=== PATIENT | male | born 1965 | race Caucasian/White ===

== ENCOUNTER 2016-10-23 22:44 | Emergency (ER) | payer MEDICARE ==
[2016-10-23] MEDS ORDERED: NALOXONE 0.4 MG/ML 1 ML VIAL IV STA (22:55)
[2016-10-23] MEDS ORDERED: SODIUM CHLORIDE 0.9% 1,000 ML IV ONE (22:55)
[2016-10-23 22:56] VITALS: RESP 18
--- NOTE | 2016-10-23 22:57 | ED ---
Altered Mental Status HPI - General Chief Complaint: Altered Mental Status Stated Complaint: ALTERED MENTAL STATUS Time Seen by Provider: 10/23/16 22:45 Source: patient, EMS, RN notes reviewed Mode of arrival: EMS - History of Present Illness Initial Comments: 51-year-old male presents to emergency room chief complaint of altered mental status. The daughter the patient has been acting off for last week or so. Patient denies any complaints. He states he hasn't been sleeping. Patient states he runs 2 cycles where he does not sleep. Patient does mention narcotic use. Patient has no complaints at this time. No chest pain no shortness of breath no vomiting. No fever chills no cough. - Related Data Home Medications Medication Instructions Recorded Confirmed ALPRAZolam [Xanax] 1 mg PO TID PRN 12/29/13 10/23/16 Hydrocodone/Acetaminophen [[place] 1 tab PO TID 12/29/13 10/23/16 10-325] Lisinopril [Zestril] 10 mg PO DAILY 12/29/13 10/23/16 Metoprolol Tartrate [Lopressor] 25 mg PO BID 12/29/13 10/23/16 Donepezil [Aricept] 10 mg PO HS 12/10/15 10/23/16 Famotidine 20 mg PO BID 12/10/15 10/23/16 Methocarbamol [Robaxin] 500 mg PO TID 12/10/15 10/23/16 traZODone HCL 50 mg PO HS PRN 12/10/15 10/23/16 Donepezil [Aricept] 5 mg PO HS 10/23/16 10/23/16 Verapamil HCl [[place]] 120 mg PO DAILY 10/23/16 10/23/16 lamoTRIgine [LaMICtal] 25 mg PO BID 10/23/16 10/23/16 lamoTRIgine [LaMICtal] 200 mg PO BID 10/23/16 10/23/16 Allergies Allergy/AdvReac Type Severity Reaction Status Date / Time venom-honey bee Allergy Anaphylaxis Verified 10/23/16 23:01 [bee venom (honey bee)] Review of Systems ROS Statement: Those systems with pertinent positive or pertinent negative responses have been documented in the HPI. ROS Other: All systems not noted in ROS Statement are negative. Past Medical History Past Medical History: Asthma, Chest Pain / Angina, GERD/Reflux, Hypertension, Memory Impairment Additional Past Medical History / Comment(s): GOUT, CHRONIC BACK PAIN, MIGRAINES , left hearing loss, hx. memory loss-having work up done for dementia per daughter, intermittent coffee ground emesis, maybe 3-4 times per month, ran out of GERD meds. History of Any Multi-Drug Resistant Organisms: None Reported Additional Past Surgical History / Comment(s): COLONOSCOPY Past Anesthesia/Blood Transfusion Reactions: No Reported Reaction Past Psychological History: Anxiety Smoking Status: Former smoker Past Alcohol Use History: Rare Past Drug Use History: None Reported General Exam General appearance: alert, other (drowsy) Head exam: Present: atraumatic, normocephalic, normal inspection Eye exam: Present: EOMI, other (She does appear to have pinpoint pupils). Absent: scleral icterus, conjunctival injection ENT exam: Present: normal exam, mucous membranes moist Neck exam: Present: normal inspection. Absent: tenderness, meningismus, lymphadenopathy Respiratory exam: Present: normal lung sounds bilaterally. Absent: respiratory distress, wheezes, rales, rhonchi, stridor Cardiovascular Exam: Present: regular rate, normal rhythm, normal heart sounds. Absent: systolic murmur, diastolic murmur, rubs, gallop, clicks GI/Abdominal exam: Present: soft, normal bowel sounds. Absent: distended, tenderness, guarding, rebound, rigid Neurological exam: Present: alert, oriented X3, CN II-XII intact. Absent: motor sensory deficit Psychiatric exam: Present: normal affect, normal mood Skin exam: Present: warm, dry, intact, normal color. Absent: rash Course Vital Signs 10/23/16 10/24/16 10/24/16 22:50 00:00 01:00 Temperature 97.7 F Pulse Rate 79 68 82 Respiratory 18 18 18 Rate Blood Pressure 128/80 106/69 122/73 O2 Sat by Pulse 92 L 98 97 Oximetry - Reevaluation(s) Reevaluation #1: 10/24/16 00:38 After Narcan the patient is much more alert and awake in the room. Daughter states the patient seems to be returned to normal. Medical Decision Making - Medical Decision Making 51-year-old male emergency Department chief complaint of altered mental status. At this time urine drug screen does show oxycodone on methadone and opiates in his system. Patient does admit to taking these medications prior to arrival. narcan did awaken the patient. We discussed the methadone is long- acting and this could lead to problems with the Narcan wears off. They state he understood however the patient would like to go home nonetheless. At this time we discussed that she keep the patient for observation however he states that he would like to go home. Discussed with family care for home. We did discuss immediate return parameters we did discuss follow-up. We discussed the importance of narcotic abuse. The patient stated that he understood as well as family. All her questions have been answered. They will be discharged home. - Lab Data Result diagrams: 10/23/16 23:10 10/23/16 23:10 Lab Results 10/23/16 10/23/16 10/23/16 Range/Units 23:10 23:10 23:10 WBC 10.6 (3.8-10.6) k/uL RBC 5.25 (4.30-5.90) m/uL Hgb 15.9 (13.0-17.5) gm/dL Hct 47.3 (39.0-53.0) % MCV 90.0 (80.0-100.0) fL MCH 30.3 (25.0-35.0) pg MCHC 33.7 (31.0-37.0) g/dL RDW 12.9 (11.5-15.5) % Plt Count 319 (150-450) k/uL Neutrophils % (Manual) 37.0 % Lymphocytes % (Manual) 42.0 % Monocytes % (Manual) 16.0 % Eosinophils % (Manual) 5.0 % Neutrophils # (Manual) 3.9 (1.3-7.7) k/uL Lymphocytes # (Manual) 4.5 (1.0-4.8) k/uL Monocytes # (Manual) 1.7 H (0-1.0) k/uL Eosinophils # (Manual) 0.5 (0-0.7) k/uL Nucleated RBCs 0 (0-0) /100 WBC Manual Slide Review Performed Reactive Lymphocytes Present PT (9.0-12.0) sec INR (<1.1) APTT (22.0-30.0) sec Sodium (137-145) mmol/L Potassium (3.5-5.1) mmol/L Chloride (98-107) mmol/L Carbon Dioxide (22-30) mmol/L Anion Gap mmol/L BUN (9-20) mg/dL Creatinine (0.66-1.25) mg/dL Est GFR (MDRD) Af Amer (>60 ml/min/1.73 sqM) Est GFR (MDRD) Non-Af (>60 ml/min/1.73 sqM) Glucose (74-99) mg/dL POC Glucose (mg/dL) (75-99) mg/dL POC Glu [employer]er ID Calcium (8.4-10.2) mg/dL Total Bilirubin (0.2-1.3) mg/dL AST (17-59) U/L ALT (21-72) U/L Alkaline Phosphatase (38-126) U/L Ammonia 12 (<30) umol/L Total Creatine Kinase 230 H (55-170) U/L CK-MB (CK-2) 0.6 (0.0-2.4) ng/mL CK-MB (CK-2) Rel Index 0.3 Troponin I <0.012 (0.000-0.034) ng/mL Total Protein (6.3-8.2) g/dL Albumin (3.5-5.0) g/dL Urine Color Urine Appearance (Clear) Urine pH (5.0-8.0) Ur Specific [place] (1.001-1.035) Urine Protein (Negative) Urine Glucose (UA) (Negative) Urine Ketones (Negative) Urine Blood (Negative) Urine Nitrite (Negative) Urine Bilirubin (Negative) Urine Urobilinogen (<2.0) mg/dL Ur Leukocyte Esterase (Negative) Urine Opiates Screen (NotDetected) Ur Oxycodone Screen (NotDetected) Urine Methadone Screen (NotDetected) Ur Propoxyphene Screen (NotDetected) Ur Barbiturates Screen (NotDetected) U Tricyclic Antidepress (NotDetected) Ur Phencyclidine Scrn (NotDetected) Ur Amphetamines Screen (NotDetected) U Methamphetamines Scrn (NotDetected) U Benzodiazepines Scrn (NotDetected) Urine Cocaine Screen (NotDetected) U Marijuana (THC) Screen (NotDetected) 10/23/16 10/23/1610/23/17 Range/Units 23:10 23:10 23:28 WBC (3.8-10.6) k/uL RBC (4.30-5.90) m/uL Hgb (13.0-17.5) gm/dL Hct (39.0-53.0) % MCV (80.0-100.0) fL MCH (25.0-35.0) pg MCHC (31.0-37.0) g/dL RDW (11.5-15.5) % Plt Count (150-450) k/uL Neutrophils % (Manual) % Lymphocytes % (Manual) % Monocytes % (Manual) % Eosinophils % (Manual) % Neutrophils # (Manual) (1.3-7.7) k/uL Lymphocytes # (Manual) (1.0-4.8) k/uL Monocytes # (Manual) (0-1.0) k/uL Eosinophils # (Manual) (0-0.7) k/uL Nucleated RBCs (0-0) /100 WBC Manual Slide Review Reactive Lymphocytes PT 10.9 (9.0-12.0) sec INR 1.1 (<1.1) APTT 21.5 L (22.0-30.0) sec Sodium 141 (137-145) mmol/L Potassium 3.9 (3.5-5.1) mmol/L Chloride 101 (98-107) mmol/L Carbon Dioxide 25 (22-30) mmol/L Anion Gap 15 mmol/L BUN 17 (9-20) mg/dL Creatinine 1.10 (0.66-1.25) mg/dL Est GFR (MDRD) Af Amer >60 (>60 ml/min/1.73 sqM) Est GFR (MDRD) Non-Af >60 (>60 ml/min/1.73 sqM) Glucose 142 H (74-99) mg/dL POC Glucose (mg/dL) 128 H (75-99) mg/dL POC Glu [employer]er ID Kecia Wang Calcium 9.8 (8.4-10.2) mg/dL Total Bilirubin 0.5 (0.2-1.3) mg/dL AST 29 (17-59) U/L ALT 31 (21-72) U/L Alkaline Phosphatase 59 (38-126) U/L Ammonia (<30) umol/L Total Creatine Kinase (55-170) U/L CK-MB (CK-2) (0.0-2.4) ng/mL CK-MB (CK-2) Rel Index Troponin I (0.000-0.034) ng/mL Total Protein 7.5 (6.3-8.2) g/dL Albumin 4.8 (3.5-5.0) g/dL Urine Color Urine Appearance (Clear) Urine pH (5.0-8.0) Ur Specific [place] (1.001-1.035) Urine Protein (Negative) Urine Glucose (UA) (Negative) Urine Ketones (Negative) Urine Blood (Negative) Urine Nitrite (Negative) Urine Bilirubin (Negative) Urine Urobilinogen (<2.0) mg/dL Ur Leukocyte Esterase (Negative) Urine Opiates Screen (NotDetected) Ur Oxycodone Screen (NotDetected) Urine Methadone Screen (NotDetected) Ur Propoxyphene Screen (NotDetected) Ur Barbiturates Screen (NotDetected) U Tricyclic Antidepress (NotDetected) Ur Phencyclidine Scrn (NotDetected) Ur Amphetamines Screen (NotDetected) U Methamphetamines Scrn (NotDetected) U Benzodiazepines Scrn (NotDetected) Urine Cocaine Screen (NotDetected) U Marijuana (THC) Screen (NotDetected) 10/24/16 10/24/16 Range/Units 01:00 01:00 WBC (3.8-10.6) k/uL RBC (4.30-5.90) m/uL Hgb (13.0-17.5) gm/dL Hct (39.0-53.0) % MCV (80.0-100.0) fL MCH (25.0-35.0) pg MCHC (31.0-37.0) g/dL RDW (11.5-15.5) % Plt Count (150-450) k/uL Neutrophils % (Manual) % Lymphocytes % (Manual) % Monocytes % (Manual) % Eosinophils % (Manual) % Neutrophils # (Manual) (1.3-7.7) k/uL Lymphocytes # (Manual) (1.0-4.8) k/uL Monocytes # (Manual) (0-1.0) k/uL Eosinophils # (Manual) (0-0.7) k/uL Nucleated RBCs (0-0) /100 WBC Manual Slide Review Reactive Lymphocytes PT (9.0-12.0) sec INR (<1.1) APTT (22.0-30.0) sec Sodium (137-145) mmol/L Potassium (3.5-5.1) mmol/L Chloride (98-107) mmol/L Carbon Dioxide (22-30) mmol/L Anion Gap mmol/L BUN (9-20) mg/dL Creatinine (0.66-1.25) mg/dL Est GFR (MDRD) Af Amer (>60 ml/min/1.73 sqM) Est GFR (MDRD) Non-Af (>60 ml/min/1.73 sqM) Glucose (74-99) mg/dL POC Glucose (mg/dL) (75-99) mg/dL POC Glu [employer]er ID Calcium (8.4-10.2) mg/dL Total Bilirubin (0.2-1.3) mg/dL AST (17-59) U/L ALT (21-72) U/L Alkaline Phosphatase (38-126) U/L Ammonia (<30) umol/L Total Creatine Kinase (55-170) U/L CK-MB (CK-2) (0.0-2.4) ng/mL CK-MB (CK-2) Rel Index Troponin I (0.000-0.034) ng/mL Total Protein (6.3-8.2) g/dL Albumin (3.5-5.0) g/dL Urine Color Yellow Urine Appearance Clear (Clear) Urine pH 5.5 (5.0-8.0) Ur Specific [place] 1.020 (1.001-1.035) Urine Protein Trace H (Negative) Urine Glucose (UA) Negative (Negative) Urine Ketones Negative (Negative) Urine Blood Negative (Negative) Urine Nitrite Negative (Negative) Urine Bilirubin Negative (Negative) Urine Urobilinogen 3.0 (<2.0) mg/dL Ur Leukocyte Esterase Negative (Negative) Urine Opiates Screen Detected H (NotDetected) Ur Oxycodone Screen Detected H (NotDetected) Urine Methadone Screen Detected H (NotDetected) Ur Propoxyphene Screen Not Detected (NotDetected) Ur Barbiturates Screen Not Detected (NotDetected) U Tricyclic Antidepress Not Detected (NotDetected) Ur Phencyclidine Scrn Not Detected (NotDetected) Ur Amphetamines Screen Not Detected (NotDetected) U Methamphetamines Scrn Not Detected (NotDetected) U Benzodiazepines Scrn Detected H (NotDetected) Urine Cocaine Screen Not Detected (NotDetected) U Marijuana (THC) Screen Not Detected (NotDetected) 10/24/16 00:38 normal sinus rhythm 70 bpm, normal axis, no atopy, no S-T depressions or elevations, - Radiology Data Radiology results: report reviewed, image reviewed Disposition Clinical Impression: Narcotic overdose Disposition: HOME SELF-CARE Condition: Stable Instructions: Narcotic Abuse (ED) Additional Instructions: Please use medication as discussed. Please follow up with family doctor if symptoms have not improved over the next two days. Please return to the emergency room if your symptoms increase or worsen or for any other concerns. No narcotic use for the next 24-48 hours Referrals: Jerad Lucero MD [Primary Care Provider] - 1-2 days Time of Disposition: 01:58
[2016-10-23 23:30] LABS: Glucose,Whole Blood 128 mg/dL (75-99)
[2016-10-23 23:37] LABS: CH 30.4; CHCM 33.9; HCT 47.3 % (39.0-53.0); HDW 2.61; HGB 15.9 gm/dL (13.0-17.5); MCH 30.3 pg (25.0-35.0); MCHC 33.7 g/dL (31.0-37.0); Mean Platelet Volume 6.5; RBC 5.25 m/uL (4.30-5.90); RDW 12.9 % (11.5-15.5); WBC 10.6 k/uL (3.8-10.6); WBC (Perox) 10.77
[2016-10-23 23:46] LABS: ALT 31 U/L (21-72); AST 29 U/L (17-59); Alkaline Phosphatase 59 U/L (38-126); Anion Gap 15 mmol/L; Blood Urea Nitrogen 17 mg/dL (9-20); Calcium 9.8 mg/dL (8.4-10.2); Carbon Dioxide 25 mmol/L (22-30); Chloride 101 mmol/L (98-107); Glucose 142 mg/dL (74-99); Non-African American GFR(MDRD) >60 (>60 ml/min/1.73 sqM); Potassium 3.9 mmol/L (3.5-5.1); Sodium 141 mmol/L (137-145); Total Bilirubin 0.5 mg/dL (0.2-1.3); Total Protein 7.5 g/dL (6.3-8.2)
[2016-10-23 23:50] LABS: INR 1.1 (<1.1); Prothrombin Time 10.9 sec (9.0-12.0)
[2016-10-24] LABS: Partial Thromboplastin Time 21.5 sec (22.0-30.0)
--- NOTE | 2016-10-24 00:01 | XR ---
EXAM: XR Chest, 2 Views. CLINICAL HISTORY: Reason: altered mental status TECHNIQUE: Frontal and lateral views of the chest. COMPARISON: Chest radiograph on 05/26/2015 FINDINGS: Hardware: None. Lungs/pleura: Minimal atelectasis at the left lung base. No focal consolidation. No pleural effusion or pneumothorax. Heart/mediastinum: Mild prominence of the cardiac silhouette is likely accentuated by technique. Soft tissues: Unremarkable. Bones: No acute fracture. Upper abdomen: Normal. IMPRESSION: No acute disease.
[2016-10-24 00:04] LABS: Add Differential Manual Differential; Creatine Kinase 230 U/L (55-170)
[2016-10-24 00:06] LABS: Manual Review Performed; Nucleated Red Blood Cells 0 /100 WBC (0-0); Reactive Lymphocytes Present; Total Cells Counted 100
--- NOTE | 2016-10-24 00:09 | CT ---
EXAM: CT Head Without Intravenous Contrast. CLINICAL HISTORY: Reason: altered mental status TECHNIQUE: Axial computed tomography images of the head/brain without intravenous contrast. CTDI is 57.40 mGy and DLP is 892.10 mGy-cm This CT exam was performed using one or more of the following dose reduction techniques: automated exposure control, adjustment of the mA and/or kV according to patient size, and/or use of iterative reconstruction technique. COMPARISON: CT head on 02/24/2014 FINDINGS: Brain: No acute infarct or hemorrhage. No extra-axial fluid collection. No mass effect or midline shift. Mild scattered hypodensities in the supratentorial white matter within normal limits for patient's age. Ventricles and sulci: Normal. No ventriculomegaly or intraventricular hemorrhage. Skull: Normal. No bony lesion or fracture. Subcutaneous tissues: Normal. Sinuses: Mild mucosal thickening in the sphenoid sinuses and frontal sinuses. Moderate opacification of the ethmoid air cells.. Mastoid air cells: Normal. Orbits: Grossly unremarkable. IMPRESSION: No acute intracranial abnormality.
[2016-10-24 00:17] LABS: Creatine Kinase MB 0.6 ng/mL (0.0-2.4); Troponin I <0.012 ng/mL (0.000-0.034)
[2016-10-24 01:11] LABS: Appearance,Urine Clear (Clear); Bilirubin,Urine Negative (Negative); Glucose,Urine (UA) Negative (Negative); Ketones,Urine Negative (Negative); Leukocyte Esterase,Urine Negative (Negative); Nitrite,Urine Negative (Negative); PH, Urine 5.5 (5.0-8.0); Protein,Urine Trace (Negative); UA Billing (MACRO vs. MICRO) CHEM
[2016-10-24 02:20] VITALS: BP 115/71; PULSE 75; TEMP 98.9
== END 2016-10-24 02:18 | disposition home or self-care (01) ==
LOC: EC 22:44
DX: T40.2X1A Poisoning by other opioids, accidental (unintentional), initial encounter (principal); K21.9 Gastro-esophageal reflux disease without esophagitis; I10 Essential (primary) hypertension; F41.9 Anxiety disorder, unspecified; M10.9 Gout, unspecified; Z87.891 Personal history of nicotine dependence; F03.90 Unspecified dementia, unspecified severity, without behavioral disturbance, psychotic disturbance, mood disturbance, and anxiety; R41.3 Other amnesia; Z79.899 Other long term (current) drug therapy; Z91.030 Bee allergy status
CPT/HCPCS: 99285; 96374; 96361; 36415; 93005; 80053; 82140; 82550; 82553; 84484; 85025; 85610; 85730; 81003; 80306; 71020; 70450; J2310

== ENCOUNTER → 2017-09-07 | Outpatient (CLI) | payer MEDICARE | END | disposition home or self-care (01) | LOC: LABWHC1 10:21 | PROVIDERS: ATTEND Psychiatry & Neurology Pain Medicine | DX: G40.909 Epilepsy, unspecified, not intractable, without status epilepticus (principal) | CPT/HCPCS: 36415; 80175 ==

== ENCOUNTER → 2018-05-10 | Outpatient (CLI) | payer MEDICARE ==
--- NOTE | 2018-05-10 16:19 | XR ---
EXAMINATION TYPE: XR knee 4V RT DATE OF EXAM: 05/10/2018 CLINICAL HISTORY: Fall injury yesterday with pain. TECHNIQUE: Three views of the right knee are obtained. Fourth sunrise view was acquired. COMPARISON: None. FINDINGS: There is no acute fracture/dislocation evident in right knee. Mild tricompartment joint sp agusto loss is present. Patellar articulation is within normal limits on sunrise view. The overlying so ft tissue appears unremarkable. IMPRESSION: There is no acute fracture or dislocation in the right knee.
== END | disposition home or self-care (01) ==
LOC: RADXRMAIN 14:13
PROVIDERS: ATTEND Midwife
DX: M25.561 Pain in right knee (principal)

== ENCOUNTER 2018-09-26 18:38 | Emergency (ER) | payer MEDICARE ==
[2018-09-26] MEDS ORDERED: SODIUM CHLORIDE 0.9% 1,000 ML IV ONE ×3 (19:10→20:30)
[2018-09-26 19:18] LABS: Glucose,Whole Blood 111 mg/dL (75-99)
--- NOTE | 2018-09-26 19:32 | ED ---
Altered Mental Status HPI - General Chief Complaint: Altered Mental Status Stated Complaint: ALTERED MENTAL STATUS, WEAKNESS Time Seen by Provider: 09/26/18 19:00 Source: patient Mode of arrival: ambulatory Limitations: no limitations - History of Present Illness Initial Comments: Patient is a 53-year-old female presented for altered mental status and possible seizure. Daughter is bedside and states that the patient has a significant history of dementia, seizures, migraines and he has been started on multiple medications here recently including [place]. She states that she became concerned after she found the patient propped up in the doorframe at her house and that he is having "spasms". He kept repeating the same thing over and over again and she states that he has been relatively unresponsive - Related Data Home Medications Medication Instructions Recorded Confirmed Hydrocodone/Acetaminophen [[place] 1 tab PO TID 12/29/13 09/26/18 10-325] Lisinopril [Zestril] 10 mg PO DAILY 12/29/13 09/26/18 Metoprolol Tartrate [Lopressor] 25 mg PO BID 12/29/13 09/26/18 Donepezil [Aricept] 20 mg PO HS 12/10/15 09/26/18 Famotidine 20 mg PO BID 12/10/15 09/26/18 Verapamil HCl [Calan] 120 mg PO DAILY 10/23/16 09/26/18 lamoTRIgine [LaMICtal] 50 mg PO BID 10/23/16 09/26/18 lamoTRIgine [LaMICtal] 200 mg PO BID 10/23/16 09/26/18 Allopurinol [Zyloprim] 300 mg PO DAILY 09/26/18 09/26/18 Citalopram Hydrobromide [CeleXA] 10 mg PO DAILY 09/26/18 09/26/18 Memantine [Namenda] 10 mg PO BID 09/26/18 09/26/18 OXcarbazepine [Trileptal] 300 mg PO BID 09/26/18 09/26/18 Topiramate [Topamax] 100 mg PO BID 09/26/18 09/26/18 clonazePAM [KlonoPIN] 1 mg PO TID 09/26/18 09/26/18 traZODone HCL [Desyrel] 100 mg PO HS 09/26/18 09/26/18 Allergies Allergy/AdvReac Type Severity Reaction Status Date / Time venom-honey bee Allergy Anaphylaxis Verified 09/26/18 19:23 [bee venom (honey bee)] Review of Systems ROS Statement: Those systems with pertinent positive or pertinent negative responses have been documented in the HPI. Review of systems unable to be obtained as patient is altered ROS Other: All systems not noted in ROS Statement are negative. Past Medical History Past Medical History: Asthma, Chest Pain / Angina, GERD/Reflux, Hypertension, Memory Impairment Additional Past Medical History / Comment(s): GOUT, CHRONIC BACK PAIN, MIGRAINES , left hearing loss, hx. memory loss-having work up done for dementia per daughter, intermittent coffee ground emesis, maybe 3-4 times per month, ran out of GERD meds. History of Any Multi-Drug Resistant Organisms: None Reported Past Surgical History: No Surgical Hx Reported Additional Past Surgical History / Comment(s): COLONOSCOPY Past Anesthesia/Blood Transfusion Reactions: No Reported Reaction Past Psychological History: Anxiety Smoking Status: Former smoker Past Alcohol Use History: Rare Past Drug Use History: None Reported General Exam - General Exam Comments Initial Comments: Constitutional: Pt appears well-developed and well-nourished. No distress. Head: Normocephalic and atraumatic. Eyes: EOM are normal. Pupils 2 mm and reactive bilaterally Neck: Normal range of motion. Neck supple. Cardiovascular: Normal rate, regular rhythm, S1 normal, S2 normal and normal heart sounds. Exam reveals no gallop and no friction rub. No murmur heard. Pulmonary/Chest: Effort normal and breath sounds normal. No tachypnea and no bradypnea. No respiratory distress. No wheezes or rales noted. Abdominal: Soft. Bowel sounds are normal. Pt exhibits no shifting dullness, no distension, no pulsatile liver, no fluid wave, no abdominal bruit and no ascites. There is no rigidity, no rebound, no guarding, no tenderness at McBurney's point and negative Becker's sign. There is no tenderness. Musculoskeletal: Normal range of motion. Neurological: Patient is unable to complete complex neuro exam. Patient will not speak. Patient has no gross neuro deficits. Skin: Skin is warm and dry. No rash noted. Pt is not diaphoretic. No erythema. No pallor. Psychiatric: Unable to assess secondary to patient not speaking Limitations: no limitations Course Vital Signs 09/26/18 09/26/18 09/26/18 18:51 19:43 20:00 Temperature 98.3 F Pulse Rate 74 73 66 Respiratory 18 12 17 Rate Blood Pressure 116/72 104/76 112/71 O2 Sat by Pulse 96 95 95 Oximetry 09/26/18 20:30 Temperature 98.1 F Pulse Rate 64 Respiratory 14 Rate Blood Pressure 104/62 O2 Sat by Pulse 96 Oximetry Medical Decision Making - Medical Decision Making Laboratory studies showed that there is no significant leukocytosis or electrolyte derangements that would be causing the patient's symptoms. There is also no evidence of acute kidney injury and from a toxicologic screen, acetaminophen and salicylates were not elevated. Blood alcohol level was also unremarkable. Patient has been given 2 L of normal saline and still some been able to provide a urine sample. Head CT was performed and showed no evidence of acute pathology. The etiology of the patient's encephalopathy is unclear but it is possibly secondary to polypharmacy. However, other pathology cannot be completely excluded. Patient will need neurology evaluation but because neurology is not available at this facility, patient will need to be transferred. Patient's family requested to go to [facility] as the patient's neurologist also goes there. Patient is protecting his airway and is also hemodynamically stable so it is thought that this is appropriate. Case is discussed with ER physician, who kindly accepts the transfer. - Lab Data Result diagrams: 09/26/18 19:19 09/26/18 19:19 Lab Results 09/26/18 09/26/18 09/26/18 Range/Units 19:10 19:15 19:15 WBC (3.8-10.6) k/uL RBC (4.30-5.90) m/uL Hgb (13.0-17.5) gm/dL Hct (39.0-53.0) % MCV (80.0-100.0) fL MCH (25.0-35.0) pg MCHC (31.0-37.0) g/dL RDW (11.5-15.5) % Plt Count (150-450) k/uL Neutrophils % % Lymphocytes % % Monocytes % % Eosinophils % % Basophils % % Neutrophils # (1.3-7.7) k/uL Lymphocytes # (1.0-4.8) k/uL Monocytes # (0-1.0) k/uL Eosinophils # (0-0.7) k/uL Basophils # (0-0.2) k/uL PT (9.0-12.0) sec INR (<1.2) APTT (22.0-30.0) sec Sodium (137-145) mmol/L Potassium (3.5-5.1) mmol/L Chloride (98-107) mmol/L Carbon Dioxide (22-30) mmol/L Anion Gap mmol/L BUN (9-20) mg/dL Creatinine (0.66-1.25) mg/dL Est GFR (CKD-EPI)AfAm (>60 ml/min/1.73 sqM) Est GFR (CKD-EPI)NonAf (>60 ml/min/1.73 sqM) Glucose (74-99) mg/dL POC Glucose (mg/dL) 111 H (75-99) mg/dL POC Glu Bindery Leadperson ID Kegler, Joseline Plasma Lactic Acid Kirk (0.7-2.0) mmol/L Calcium (8.4-10.2) mg/dL Total Bilirubin (0.2-1.3) mg/dL AST (17-59) U/L ALT (21-72) U/L Alkaline Phosphatase (38-126) U/L Creatine Kinase (55-170) U/L Troponin I <0.012 (0.000-0.034) ng/mL NT-Pro-B Natriuret Pep 15 pg/mL Total Protein (6.3-8.2) g/dL Albumin (3.5-5.0) g/dL TSH (0.465-4.680) mIU/L Salicylates mg/dL Acetaminophen ug/mL Serum Alcohol mg/dL 09/26/18 09/26/18 09/26/18 Range/Units 19:19 19:19 19:19 WBC 8.3 (3.8-10.6) k/uL RBC 4.93 (4.30-5.90) m/uL Hgb 15.3 (13.0-17.5) gm/dL Hct 46.5 (39.0-53.0) % MCV 94.4 (80.0-100.0) fL MCH 31.1 (25.0-35.0) pg MCHC 32.9 (31.0-37.0) g/dL RDW 13.9 (11.5-15.5) % Plt Count 212 (150-450) k/uL Neutrophils % 66 % Lymphocytes % 25 % Monocytes % 4 % Eosinophils % 4 % Basophils % 1 % Neutrophils # 5.4 (1.3-7.7) k/uL Lymphocytes # 2.1 (1.0-4.8) k/uL Monocytes # 0.3 (0-1.0) k/uL Eosinophils # 0.3 (0-0.7) k/uL Basophils # 0.0 (0-0.2) k/uL PT 9.8 (9.0-12.0) sec INR 0.9 (<1.2) APTT 22.0 (22.0-30.0) sec Sodium 142 (137-145) mmol/L Potassium 4.5 (3.5-5.1) mmol/L Chloride 108 H (98-107) mmol/L Carbon Dioxide 26 (22-30) mmol/L Anion Gap 8 mmol/L BUN 21 H (9-20) mg/dL Creatinine 1.66 H (0.66-1.25) mg/dL Est GFR (CKD-EPI)AfAm 54 (>60 ml/min/1.73 sqM) Est GFR (CKD-EPI)NonAf 46 (>60 ml/min/1.73 sqM) Glucose 120 H (74-99) mg/dL POC Glucose (mg/dL) (75-99) mg/dL POC Glu Bindery Leadperson ID Plasma Lactic Acid Kirk (0.7-2.0) mmol/L Calcium 9.6 (8.4-10.2) mg/dL Total Bilirubin 0.5 (0.2-1.3) mg/dL AST 18 (17-59) U/L ALT 25 (21-72) U/L Alkaline Phosphatase 60 (38-126) U/L Creatine Kinase 50 L (55-170) U/L Troponin I (0.000-0.034) ng/mL NT-Pro-B Natriuret Pep pg/mL Total Protein 7.3 (6.3-8.2) g/dL Albumin 4.6 (3.5-5.0) g/dL TSH 0.332 L (0.465-4.680) mIU/L Salicylates <1.0 mg/dL Acetaminophen <10.0 ug/mL Serum Alcohol <10 mg/dL 09/26/18 Range/Units 19:19 WBC (3.8-10.6) k/uL RBC (4.30-5.90) m/uL Hgb (13.0-17.5) gm/dL Hct (39.0-53.0) % MCV (80.0-100.0) fL MCH (25.0-35.0) pg MCHC (31.0-37.0) g/dL RDW (11.5-15.5) % Plt Count (150-450) k/uL Neutrophils % % Lymphocytes % % Monocytes % % Eosinophils % % Basophils % % Neutrophils # (1.3-7.7) k/uL Lymphocytes # (1.0-4.8) k/uL Monocytes # (0-1.0) k/uL Eosinophils # (0-0.7) k/uL Basophils # (0-0.2) k/uL PT (9.0-12.0) sec INR (<1.2) APTT (22.0-30.0) sec Sodium (137-145) mmol/L Potassium (3.5-5.1) mmol/L Chloride (98-107) mmol/L Carbon Dioxide (22-30) mmol/L Anion Gap mmol/L BUN (9-20) mg/dL Creatinine (0.66-1.25) mg/dL Est GFR (CKD-EPI)AfAm (>60 ml/min/1.73 sqM) Est GFR (CKD-EPI)NonAf (>60 ml/min/1.73 sqM) Glucose (74-99) mg/dL POC Glucose (mg/dL) (75-99) mg/dL POC Glu Bindery Leadperson ID Plasma Lactic Acid Kirk 1.4 (0.7-2.0) mmol/L Calcium (8.4-10.2) mg/dL Total Bilirubin (0.2-1.3) mg/dL AST (17-59) U/L ALT (21-72) U/L Alkaline Phosphatase (38-126) U/L Creatine Kinase (55-170) U/L Troponin I (0.000-0.034) ng/mL NT-Pro-B Natriuret Pep pg/mL Total Protein (6.3-8.2) g/dL Albumin (3.5-5.0) g/dL TSH (0.465-4.680) mIU/L Salicylates mg/dL Acetaminophen ug/mL Serum Alcohol mg/dL - EKG Data EKG Comments: EKG shows normal sinus rhythm with a rate of 65 bpm, MO interval 160, QRS 88, QTC 438. There are no significant ST depressions or elevations. Disposition Clinical Impression: Encephalopathy Disposition: OTHER INSTITUTION NOT DEFINED Condition: Fair Instructions (If sedation given, give patient instructions): Altered Mental Status (ED) Referrals: Jerad Lucero MD [Primary Care Provider] - 1-2 days Time of Disposition: 20:43 - Out of Hospital Transfer - Req. Specs Out of Hospital Transfer - Requested Specifics: Other Emergency Center ([facility])
[2018-09-26 19:38] LABS: Basophils % (A) 1 %; Eosinophils # (A) 0.3 k/uL (0-0.7); Eosinophils % (A) 4 %; HCT 46.5 % (39.0-53.0); HGB 15.3 gm/dL (13.0-17.5); Lymphocytes # (A) 2.1 k/uL (1.0-4.8); Lymphocytes % (A) 25 %; MCH 31.1 pg (25.0-35.0); MCHC 32.9 g/dL (31.0-37.0); MCV 94.4 fL (80.0-100.0); Mean Platelet Volume 6.9; Monocytes # (A) 0.3 k/uL (0-1.0); Monocytes % (A) 4 %; Neutrophils # (A) 5.4 k/uL (1.3-7.7); Neutrophils % (A) 66 %; Platelet Count 212 k/uL (150-450); RBC 4.93 m/uL (4.30-5.90); RDW 13.9 % (11.5-15.5); WBC 8.3 k/uL (3.8-10.6)
[2018-09-26 19:52] LABS: ALT 25 U/L (21-72); AST 18 U/L (17-59); Acetaminophen <10.0 ug/mL; Albumin 4.6 g/dL (3.5-5.0); Alcohol <10 mg/dL; Alkaline Phosphatase 60 U/L (38-126); Anion Gap 8 mmol/L; Blood Urea Nitrogen 21 mg/dL (9-20); Calcium 9.6 mg/dL (8.4-10.2); Carbon Dioxide 26 mmol/L (22-30); Chloride 108 mmol/L (98-107); Creatine Kinase 50 U/L (55-170); Glucose 120 mg/dL (74-99); Potassium 4.5 mmol/L (3.5-5.1); Salicylate <1.0 mg/dL; Sodium 142 mmol/L (137-145); Total Bilirubin 0.5 mg/dL (0.2-1.3); Total Protein 7.3 g/dL (6.3-8.2)
[2018-09-26 19:55] LABS: INR 0.9 (<1.2); Prothrombin Time 9.8 sec (9.0-12.0)
--- NOTE | 2018-09-26 20:06 | CT ---
EXAMINATION TYPE: CT brain wo con DATE OF EXAM: 09/26/2018 COMPARISON: 10/23/2016 HISTORY: ams CT DLP: 1093.4 mGycm Automated exposure control for dose reduction was used. FINDINGS: Ventricles have normal size. There is no mass effect nor midline shift. There is no sign of intracran ial hemorrhage. The calvarium is intact. IMPRESSION: NEGATIVE CT SCAN OF THE BRAIN. NO CHANGE.
--- NOTE | 2018-09-26 20:30 | XR ---
EXAMINATION TYPE: XR chest 2V DATE OF EXAM: 09/26/2018 COMPARISON: 10/23/2016 HISTORY: Altered mental status TECHNIQUE: Frontal and lateral views of the chest are obtained. FINDINGS: There is no heart failure nor confluent pneumonic infiltrate. Costophrenic angles are umesh r. There are chest leads. IMPRESSION: No active cardiopulmonary disease. No change.
[2018-09-26 20:40] VITALS: BP 104/62; PULSE 64; RESP 14; TEMP 98.1
[2018-09-26 21:20] LABS: Amorphous Sediment,Urine Occasional /hpf; Appearance,Urine Cloudy (Clear); Bilirubin,Urine Negative (Negative); Blood,Urine Negative (Negative); Color,Urine Yellow; Glucose,Urine (UA) Negative (Negative); Hyaline Casts,Urine 47 /lpf (0-2); Ketones,Urine Negative (Negative); Leukocyte Esterase,Urine Negative (Negative); Mucus,Urine Rare /hpf; Nitrite,Urine Negative (Negative); PH, Urine 7.5 (5.0-8.0); Protein,Urine Trace (Negative); RBC,Urine 4 /hpf (0-5); Specific Gravity,Urine 1.014 (1.001-1.035); Urobilinogen,Urine <2.0 mg/dL (<2.0); WBC,Urine 3 /hpf (0-5)
[2018-09-26] MEDS ORDERED: LORazepam 2 MG/ML INJ IV STA (21:26)
[2018-09-26 21:30] LABS: Amphetamine Screen,Urine Not Detected (NotDetected); Barbiturate Screen,Urine Not Detected (NotDetected); Benzodiazepines Screen,Urine Not Detected (NotDetected); Cocaine Screen,Urine Not Detected (NotDetected); Methadone Screen, Urine Not Detected (NotDetected); Opiate Screen,Urine Detected (NotDetected); Oxycodone Screen, Urine Not Detected (NotDetected); Phencyclidine Screen,Urine Detected (NotDetected); Tricyclic Antidepressant,Urine Not Detected (NotDetected); Urn Cannabinoid Scrn Not Detected (NotDetected)
[2018-09-26 21:46] LABS: T4, Free (Free Thyroxine) 0.59 ng/dL (0.78-2.19)
== END 2018-09-26 21:43 | disposition other institution (70) ==
LOC: EC 18:38
DX: G93.40 Encephalopathy, unspecified (principal); I10 Essential (primary) hypertension; M10.9 Gout, unspecified; G43.909 Migraine, unspecified, not intractable, without status migrainosus; H91.92 Unspecified hearing loss, left ear; M54.9 Dorsalgia, unspecified; G89.29 Other chronic pain; F41.9 Anxiety disorder, unspecified; Z87.891 Personal history of nicotine dependence; Z79.899 Other long term (current) drug therapy; Z79.891 Long term (current) use of opiate analgesic; Z91.030 Bee allergy status
CPT/HCPCS: 36415; 93005; 84439; 83880; 80053; 84443; 82550; 83605; 84484; 85025; 85610; 85730; 81001; 80306; 83520 ×2; 71046; 70450; 99285; 96374; 96361 ×2; G0480; J2060; 80320

== ENCOUNTER → 2018-10-14 | Outpatient (CLI) | payer MEDICARE ==
--- NOTE | 2018-10-15 07:09 | US ---
EXAMINATION TYPE: US venous doppler duplex UE LT DATE OF EXAM: 10/14/2018 COMPARISON: NONE CLINICAL HISTORY: R22.32 Localized swelling, mass and lump, left. SIDE PERFORMED: left Left Arm: Negative for DVT; is positive for superficial vein thrombosis in left Cephalic Vein upper a rm to distal brachial fossa level and smaller branch off Cephalic Vein here that moves lateral forear m and is at area of pain/redness. Tech findings called to MOIZ Ochoa, at Dr Lucero's Office at exam's end. JJ Grayscale, color doppler, spectral doppler imaging performed of the deep veins of the left upper extr emities. There is normal flow, compressibility and vascular waveforms. IMPRESSION: Confirmation of acute superficial venous thrombosis involving left cephalic vein and smal ler superficial branching vessels.
--- NOTE | 2018-10-15 07:10 | US ---
EXAMINATION TYPE: US venous doppler duplex LE BI DATE OF EXAM: 10/14/2018 4:05 PM COMPARISON: Left lower extremity venous ultrasound February 12, 2011 CLINICAL HISTORY: R22.32 right posterior thigh pain in sitting position; discharged from hospital 2 w eeks prior due to seizures per patient history. Swelling. SIDE PERFORMED: Bilateral TECHNIQUE: The lower extremity deep venous system is examined utilizing real time linear array sonog gallo with graded compression, doppler sonography and color-flow sonography. VESSELS IMAGED: Common Femoral Vein Deep Femoral Vein Greater Saphenous Vein * Femoral Vein Popliteal Vein Small Saphenous Vein * Proximal Calf Veins (* superficial vessels) Right Leg: Negative for DVT Left Leg: Negative for DVT Grayscale, color doppler, spectral doppler imaging performed of the deep veins of the bilateral lower extremities. There is normal flow, compressibility, vascular waveforms. IMPRESSION: No ultrasound evidence for acute DVT in either lower extremity.
== END ==
LOC: RADUSWWP 14:54
PROVIDERS: ATTEND Family Medicine
DX: I82.612 Acute embolism and thrombosis of superficial veins of left upper extremity (principal)
CPT/HCPCS: 93970

== ENCOUNTER 2018-12-22 17:10 | Inpatient (IN) | payer MEDICARE ==
[2018-12-22 18:59] LABS: Glucose,Whole Blood 85 mg/dL (75-99)
--- NOTE | 2018-12-22 19:06 | ED ---
General Adult HPI - General Chief complaint: Recheck/Abnormal Lab/Rx Stated complaint: LOW HEART RATE Time Seen by Provider: 12/22/18 18:39 Source: patient, family, RN notes reviewed Mode of arrival: ambulatory Limitations: no limitations - History of Present Illness Initial comments: Patient is a pleasant 53-year-old male presenting to the emergency department with bradycardia. Patient was seen at Dr. Lucero's office and advised to come to the emergency department. Patient arrived alert and appropriate to triage. When brought back to the room patient has decreased responsiveness. Stick Inserter states he fell asleep in the waiting room and has been like that since triage. Patient does have a history of nonepileptic seizures. Patient is very drowsy and has difficulty providing history. Drowsiness does resolve within a few minutes of arriving to the emergency department room #1 and is able to orient. 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 She states patient has had similar problems of this previously. She also reports the patient has been complaining of chest discomfort over the past year however has not stated it to her previously because he did not want her to be worsening. - Related Data Home Medications Medication Instructions Recorded Confirmed Hydrocodone/Acetaminophen [[place] 1 tab PO TID 12/29/13 12/22/18 10-325] Metoprolol Tartrate [Lopressor] 25 mg PO BID 12/29/13 12/22/18 Donepezil [Aricept] 20 mg PO HS 12/10/15 12/22/18 Famotidine 20 mg PO BID 12/10/15 12/22/18 Verapamil HCl [Calan] 120 mg PO TID 10/23/16 12/22/18 Allopurinol [Zyloprim] 300 mg PO DAILY 09/26/18 12/22/18 Citalopram Hydrobromide [CeleXA] 10 mg PO DAILY 09/26/18 12/22/18 Memantine [Namenda] 10 mg PO BID 09/26/18 12/22/18 clonazePAM [KlonoPIN] 1 mg PO TID 09/26/18 12/22/18 Allergies Allergy/AdvReac Type Severity Reaction Status Date / Time venom-honey bee Allergy Anaphylaxis Verified 12/22/18 18:52 [bee venom (honey bee)] Review of Systems ROS Statement: Those systems with pertinent positive or pertinent negative responses have been documented in the HPI. ROS Other: All systems not noted in ROS Statement are negative. Constitutional: Denies: fever Eyes: Denies: eye pain ENT: Denies: ear pain Respiratory: Denies: cough Cardiovascular: Reports: palpitations Endocrine: Reports: fatigue Gastrointestinal: Denies: abdominal pain Genitourinary: Denies: dysuria Musculoskeletal: Denies: back pain Skin: Denies: rash Neurological: Reports: headache Past Medical History Past Medical History: Asthma, Chest Pain / Angina, GERD/Reflux, Hypertension, Memory Impairment, Seizure Disorder Additional Past Medical History / Comment(s): GOUT, CHRONIC BACK PAIN, MIGRAINES, left hearing loss, hx. memory loss-having work up done for dementia per daughter, non-epileptic seizures History of Any Multi-Drug Resistant Organisms: None Reported Past Surgical History: No Surgical Hx Reported Additional Past Surgical History / Comment(s): COLONOSCOPY Past Anesthesia/Blood Transfusion Reactions: No Reported Reaction Past Psychological History: Anxiety Smoking Status: Former smoker Past Alcohol Use History: Rare Past Drug Use History: None Reported General Exam Limitations: no limitations General appearance: other (Patient is drowsy upon arrival to the room however does improve and becomes alert at the time exam is finished) Head exam: Present: atraumatic, normocephalic Eye exam: Present: normal appearance, PERRL, EOMI. Absent: nystagmus ENT exam: Present: normal oropharynx Neck exam: Present: normal inspection Respiratory exam: Present: normal lung sounds bilaterally. Absent: chest wall tenderness Cardiovascular Exam: Present: bradycardia Expanded Peripheral pulses: 2+: Radial (R), Radial (L), Posterior Tibialis (R), Posterior Tibialis (L) GI/Abdominal exam: Present: soft. Absent: tenderness Extremities exam: Present: normal inspection. Absent: pedal edema, calf tenderness Neurological exam: Present: alert (Drowsy on arrival, alert by the time exam is finished), oriented X3, CN II-XII intact. Absent: motor sensory deficit Psychiatric exam: Present: normal affect, normal mood Skin exam: Present: normal color Course Vital Signs 12/22/18 12/22/18 12/22/18 17:16 18:49 18:50 Temperature 97.0 F L Pulse Rate 55 L 51 L Respiratory 16 22 27 H Rate Blood Pressure 110/68 O2 Sat by Pulse 96 99 Oximetry 05/29/19 05/29/19 05/29/19 19:00 19:10 19:20 Temperature Pulse Rate 49 L 44 L 42 L Respiratory 9 L 3 L 4 L Rate Blood Pressure 150/81 150/81 150/81 O2 Sat by Pulse 99 99 99 Oximetry 12/22/18 12/22/18 12/22/18 19:30 19:40 19:50 Temperature Pulse Rate 44 L 49 L Respiratory 3 L 8 L Rate Blood Pressure 150/81 150/81 150/81 O2 Sat by Pulse 99 99 Oximetry 12/22/18 20:00 Temperature Pulse Rate 45 L Respiratory 12 Rate Blood Pressure O2 Sat by Pulse 100 Oximetry EKG Findings - EKG Comments: EKG Findings:: Sinus bradycardia 47. NC 174. QRS 92. QT 502. QTC 444. Nor mal axis. Normal QRS. No acute ST change. Medical Decision Making - Medical Decision Making Patient reevaluated and resting comfortably in bed. Heart rate between 45 and 52. Patient is fatigued. Blood pressure is stable. Daughter states patient has been having these episodes since September. She states he was at an epilepsy center and placed on the monitor for 2 weeks without any signs of seizures. Case was discussed in detail with Dr. Lucero who will admit his patient. Consults will place with cardiology and neurology. - Lab Data Result diagrams: 12/22/18 18:59 12/22/18 18:59 Lab Results 12/22/18 12/22/18 12/22/18 Range/Units 18:58 18:59 18:59 WBC 7.6 (3.8-10.6) k/uL RBC 5.49 (4.30-5.90) m/uL Hgb 16.0 (13.0-17.5) gm/dL Hct 49.4 (39.0-53.0) % MCV 90.0 (80.0-100.0) fL MCH 29.1 (25.0-35.0) pg MCHC 32.4 (31.0-37.0) g/dL RDW 13.5 (11.5-15.5) % Plt Count 296 (150-450) k/uL Neutrophils % 37 % Lymphocytes % 49 % Monocytes % 5 % Eosinophils % 6 % Basophils % 1 % Neutrophils # 2.8 (1.3-7.7) k/uL Lymphocytes # 3.7 (1.0-4.8) k/uL Monocytes # 0.4 (0-1.0) k/uL Eosinophils # 0.5 (0-0.7) k/uL Basophils # 0.1 (0-0.2) k/uL PT (9.0-12.0) sec INR (<1.2) APTT (22.0-30.0) sec Sodium 140 (137-145) mmol/L Potassium 4.5 (3.5-5.1) mmol/L Chloride 104 (98-107) mmol/L Carbon Dioxide 27 (22-30) mmol/L Anion Gap 9 mmol/L BUN 13 (9-20) mg/dL Creatinine 0.91 (0.66-1.25) mg/dL Est GFR (CKD-EPI)AfAm >90 (>60 ml/min/1.73 sqM) Est GFR (CKD-EPI)NonAf >90 (>60 ml/min/1.73 sqM) Glucose 85 (74-99) mg/dL POC Glucose (mg/dL) 85 (75-99) mg/dL POC Glu Weave Room Supervisor ID KristinaitMalika kimn Calcium 9.7 (8.4-10.2) mg/dL Magnesium 2.2 (1.6-2.3) mg/dL Total Bilirubin 0.6 (0.2-1.3) mg/dL AST 36 (17-59) U/L ALT 18 L (21-72) U/L Alkaline Phosphatase 63 (38-126) U/L Troponin I (0.000-0.034) ng/mL Total Protein 7.2 (6.3-8.2) g/dL Albumin 4.6 (3.5-5.0) g/dL TSH 0.961 (0.465-4.680) mIU/L Free T4 0.73 L (0.78-2.19) ng/dL Free T3 pg/mL 4.5 (2.8-5.3) pg/ml 12/22/18 12/22/18 Range/Units 18:59 19:55 WBC (3.8-10.6) k/uL RBC (4.30-5.90) m/uL Hgb (13.0-17.5) gm/dL Hct (39.0-53.0) % MCV (80.0-100.0) fL MCH (25.0-35.0) pg MCHC (31.0-37.0) g/dL RDW (11.5-15.5) % Plt Count (150-450) k/uL Neutrophils % % Lymphocytes % % Monocytes % % Eosinophils % % Basophils % % Neutrophils # (1.3-7.7) k/uL Lymphocytes # (1.0-4.8) k/uL Monocytes # (0-1.0) k/uL Eosinophils # (0-0.7) k/uL Basophils # (0-0.2) k/uL PT 10.2 (9.0-12.0) sec INR 0.9 (<1.2) APTT 22.8 (22.0-30.0) sec Sodium (137-145) mmol/L Potassium (3.5-5.1) mmol/L Chloride (98-107) mmol/L Carbon Dioxide (22-30) mmol/L Anion Gap mmol/L BUN (9-20) mg/dL Creatinine (0.66-1.25) mg/dL Est GFR (CKD-EPI)AfAm (>60 ml/min/1.73 sqM) Est GFR (CKD-EPI)NonAf (>60 ml/min/1.73 sqM) Glucose (74-99) mg/dL POC Glucose (mg/dL) (75-99) mg/dL POC Glu Weave Room Supervisor ID Calcium (8.4-10.2) mg/dL Magnesium (1.6-2.3) mg/dL Total Bilirubin (0.2-1.3) mg/dL AST (17-59) U/L ALT (21-72) U/L Alkaline Phosphatase (38-126) U/L Troponin I <0.012 (0.000-0.034) ng/mL Total Protein (6.3-8.2) g/dL Albumin (3.5-5.0) g/dL TSH (0.465-4.680) mIU/L Free T4 (0.78-2.19) ng/dL Free T3 pg/mL (2.8-5.3) pg/ml - Radiology Data Radiology results: report reviewed (Computed tomography scan of the brain as well as CT angiogram of the brain in neck reveal no acute process), image reviewed (Chest x-ray shows no acute process) Disposition Clinical Impression: Bradycardia Disposition: ADMITTED IP TO THIS HOSP Is patient prescribed a controlled substance at d/c from ED?: No Referrals: Jerad Lucero MD [Primary Care Provider] - 1-2 days Decision Time: 21:25
[2018-12-22 19:22] LABS: Basophils # (A) 0.1 k/uL (0-0.2); Basophils % (A) 1 %; Eosinophils # (A) 0.5 k/uL (0-0.7); Eosinophils % (A) 6 %; HCT 49.4 % (39.0-53.0); Lymphocytes # (A) 3.7 k/uL (1.0-4.8); Lymphocytes % (A) 49 %; MCH 29.1 pg (25.0-35.0); MCHC 32.4 g/dL (31.0-37.0); Mean Platelet Volume 6.6; Monocytes # (A) 0.4 k/uL (0-1.0); Monocytes % (A) 5 %; Neutrophils # (A) 2.8 k/uL (1.3-7.7); Neutrophils % (A) 37 %; Platelet Count 296 k/uL (150-450); RBC 5.49 m/uL (4.30-5.90); RDW 13.5 % (11.5-15.5); WBC 7.6 k/uL (3.8-10.6)
[2018-12-22 19:30] LABS: ALT 18 U/L (21-72); AST 36 U/L (17-59); Albumin 4.6 g/dL (3.5-5.0); Alkaline Phosphatase 63 U/L (38-126); Anion Gap 9 mmol/L; Blood Urea Nitrogen 13 mg/dL (9-20); Calcium 9.7 mg/dL (8.4-10.2); Carbon Dioxide 27 mmol/L (22-30); Chloride 104 mmol/L (98-107); Glucose 85 mg/dL (74-99); Magnesium 2.2 mg/dL (1.6-2.3); Potassium 4.5 mmol/L (3.5-5.1); Sodium 140 mmol/L (137-145); Total Bilirubin 0.6 mg/dL (0.2-1.3); Total Protein 7.2 g/dL (6.3-8.2)
[2018-12-22 19:31] LABS: INR 0.9 (<1.2); Partial Thromboplastin Time 22.8 sec (22.0-30.0); Prothrombin Time 10.2 sec (9.0-12.0)
[2018-12-22 19:47] LABS: T4, Free (Free Thyroxine) 0.73 ng/dL (0.78-2.19)
--- NOTE | 2018-12-22 20:29 | CT ---
EXAMINATION: CT brain wo con DATE AND TIME: 12/22/2018 8:02 PM CLINICAL INDICATION: PHH; ams TECHNIQUE: Standard departmental protocol.; 1154.9; COMPARISON: CT 09/26/2018 FINDINGS: The calvarium is intact. There is no intracranial hemorrhage. There is no intracranial mass or mass effect. No definite new intra-axial or extra-axial attenuation defect. The paranasal sinuses, middle ear cavities, and mastoid sinus air cells are clear. The orbits are unremarkable. IMPRESSION: NO ACUTE PROCESS.
--- NOTE | 2018-12-22 21:12 | CT ---
EXAMINATION TYPE: CT angio head neck with contrast and with 3-D reconstruction renderings DATE OF EXAM: 12/22/2018 HISTORY: Bradycardia. Patient appears confused. COMPARISON: Head CT without contrast 12/22/2018 CT DLP: 387.6 mGycm. Automated Exposure Control for Dose Reduction was Utilized. TECHNIQUE: CTA scan of the neck is performed with IV Contrast, patient injected with 50 mL of Isovue 370, axial images are obtained, coronal and sagittal reformatted images are reviewed. Three-D recons tructed images are created on an independent workstation and reviewed. FINDINGS: The bilateral carotid arterial systems are widely patent and negative for dissection or stenosis or a neurysm. The intracranial anterior circulation is similarly negative. The bilateral vertebral arterial systems are widely patent and negative for dissection or stenosis or aneurysm. The intracranial posterior circulation is similarly negative. The venous structures and intracranial dural venous sinuses are widely patent. There are no incidental soft tissue neck, skeletal, intraspinal, or intracranial findings. IMPRESSION: No significant abnormality is seen.
--- NOTE | 2018-12-22 21:13 | XR ---
EXAMINATION: XR chest 2V DATE AND TIME: 12/22/2018 7:38 PM CLINICAL INDICATION: PHH; dysrhythmia TECHNIQUE: Departmental protocol COMPARISON: 09/26/2018 FINDINGS: The lungs are clear. The pleural spaces are negative. The cardiac silhouette is mild moderately enlarged. The remainder of the mediastinal silhouette is un remarkable. The skeletal structures and soft tissues are negative for acute findings. IMPRESSION: NO ACUTE PROCESS.
[2018-12-22] MEDS ORDERED: NALOXONE 0.4 MG/ML 1 ML VIAL IV PRN (21:25)
[2018-12-23] MEDS: SODIUM CHLORIDE 0.9% 1,000 ML IV SCH (06:33)
[2018-12-23 10:14] LABS: Basophils # (A) 0.1 k/uL (0-0.2); Basophils % (A) 1 %; Eosinophils # (A) 0.3 k/uL (0-0.7); Eosinophils % (A) 5 %; HCT 47.7 % (39.0-53.0); HGB 15.4 gm/dL (13.0-17.5); Lymphocytes % (A) 29 %; MCH 29.2 pg (25.0-35.0); MCHC 32.3 g/dL (31.0-37.0); MCV 90.4 fL (80.0-100.0); Mean Platelet Volume 8.7; Monocytes # (A) 0.3 k/uL (0-1.0); Monocytes % (A) 5 %; Neutrophils % (A) 59 %; Platelet Count 234 k/uL (150-450); RBC 5.28 m/uL (4.30-5.90); RDW 14.5 % (11.5-15.5); WBC 6.8 k/uL (3.8-10.6)
--- NOTE | 2018-12-23 12:34 | P.HPIM ---
History of Present Illness 53-year-old male presented to family physician yesterday with complaints of weakness frequent sleeping increasing dementia and confusion. Patient was found to be in a bradycardia 41. We are holding beta eric and verapamil heart rate is increased to 60. Patient has a history of altered mental status progressive. Patient has had seizure workup unable to do tach seizure activity. Patient describes having periods of strain sensations when sleeping that he is unable to breathe or move. Family states that he has frequent periods of sleeping more days not able to arouse. Discussed case with neurology Review of Systems Constitutional: Reports fatigue, Reports malaise Musculoskeletal: Reports low back pain Past Medical History Past Medical History: Asthma, Chest Pain / Angina, Dementia, GERD/Reflux, GI Bleed, Hypertension, Memory Impairment, Seizure Disorder Additional Past Medical History / Comment(s): Nonepileptic seizures with last one being 12/17/18, small hiatal hernia, chronic low back pain, migraines, lower and upper GI bleeds, hemorrhoids, JILLIAN with Cpap History of Any Multi-Drug Resistant Organisms: None Reported Past Surgical History: No Surgical Hx Reported Additional Past Surgical History / Comment(s): EGD, colonoscopy, bilateral myringotomies/tubes, vasectomy Past Anesthesia/Blood Transfusion Reactions: No Reported Reaction, Motion Sickness Additional Past Anesthesia/Blood Transfusion Reaction / Comment(s): Pt has clausterphobia Smoking Status: Light tobacco smoker - Past Family History Mother Family Medical History: CVA/TIA, Myocardial Infarction ([place]) Additional Family Medical History / Comment(s): Mother is . Father Family Medical History: Coronary Artery Disease (CAD) Additional Family Medical History / Comment(s): Father is living. He has a pacemaker and has had CABG Medications and Allergies Home Medications Medication Instructions Recorded Confirmed Type Hydrocodone/Acetaminophen [[place] 1 tab PO TID 12/29/13 12/22/18 History 10-325] Metoprolol Tartrate [Lopressor] 25 mg PO BID 12/29/13 12/22/18 History Donepezil [Aricept] 20 mg PO HS 12/10/15 12/22/18 History Famotidine 20 mg PO BID 12/10/15 12/22/18 History Verapamil HCl [[place]an] 120 mg PO TID 10/23/16 12/22/18 History Allopurinol [Zyloprim] 300 mg PO DAILY 09/26/18 12/22/18 History Citalopram Hydrobromide [CeleXA] 10 mg PO DAILY 09/26/18 12/22/18 History Memantine [Namenda] 10 mg PO BID 09/26/18 12/22/18 History clonazePAM [KlonoPIN] 1 mg PO TID 09/26/18 12/22/18 History Allergies Allergy/AdvReac Type Severity Reaction Status Date / Time venom-honey bee Allergy Anaphylaxis Verified 12/22/18 18:52 [bee venom (honey bee)] Physical Exam Vitals: Vital Signs Temp Pulse Pulse Resp BP BP Pulse Ox 12/23/18 09:01 58 L 18 145/86 98 12/23/18 04:00 97.1 F L 45 L 16 127/77 95 12/22/18 20:00 45 L 12 100 12/22/18 19:50 49 L 8 L 150/81 99 12/22/18 19:40 150/81 12/22/18 19:30 44 L 3 L 150/81 99 12/22/18 19:20 42 L 4 L 150/81 99 12/22/18 19:10 44 L 3 L 150/81 99 12/22/18 19:00 49 L 9 L 150/81 99 12/22/18 18:50 51 L 27 H 99 12/22/18 18:49 22 12/22/18 17:16 97.0 F L 55 L 16 110/68 96 Intake and Output 12/22/18 12/23/18 12/23/18 22:59 06:59 14:59 Other: Weight 71.668 kg - Constitutional General appearance: mild distress - EENT Eyes: PERRLA Ears: bilateral: normal - Neck Neck: normal ROM - Respiratory Respiratory: negative: CTA - Cardiovascular Rhythm: regular - Gastrointestinal General gastrointestinal: soft - Integumentary Integumentary: normal - Neurologic Neurologic: CNII-XII intact - Psychiatric Patient awake and alert. Had episode of sleeping in the emergency room with a staff was unable to arouse Results CBC & Chem 7: 12/23/18 07:59 12/22/18 18:59 Labs: Abnormal Lab Results - Last 24 Hours (Table) 12/22/18 12/23/18 Range/Units 18:59 07:59 ALT 18 L (21-72) U/L Creatine Kinase 1077 H* (55-170) U/L Free T4 0.73 L (0.78-2.19) ng/dL Chest x-ray: report reviewed CT Scan - head: report reviewed Thrombosis Risk Factor Assmnt - Choose All That Apply Any of the Below Risk Factors Present?: Yes Each Factor Represents 1 point: Age 41-60 years, Obesity (BMI >25) Other Risk Factors: No Other congenital or acquired thrombophilia - If yes, enter type in comment: No Thrombosis Risk Factor Assessment Total Risk Factor Score: 2 Thrombosis Risk Factor Assessment Level: Low Risk Assessment and Plan Plan: Assessment Bradycardia Altered mental status Sleep apnea History of asthma GERD Hypertension Progressing dementia Seizure disorder Chronic low back pain narcotic dependent Plan Consultation with neurology and cardiology
[2018-12-23 13:00] LABS: Appearance,Urine Clear (Clear); Bilirubin,Urine Negative (Negative); Blood,Urine Negative (Negative); Color,Urine Yellow; Glucose,Urine (UA) Negative (Negative); Ketones,Urine 1+ (Negative); Leukocyte Esterase,Urine Negative (Negative); Nitrite,Urine Negative (Negative); Protein,Urine Negative (Negative); Specific Gravity,Urine 1.028 (1.001-1.035); Urobilinogen,Urine <2.0 mg/dL (<2.0)
[2018-12-23 13:14] LABS: Amphetamine Screen,Urine Not Detected (NotDetected); Barbiturate Screen,Urine Not Detected (NotDetected); Benzodiazepines Screen,Urine Detected (NotDetected); Cocaine Screen,Urine Not Detected (NotDetected); Methadone Screen, Urine Not Detected (NotDetected); Opiate Screen,Urine Detected (NotDetected); Oxycodone Screen, Urine Not Detected (NotDetected); Phencyclidine Screen,Urine Not Detected (NotDetected); Tricyclic Antidepressant,Urine Not Detected (NotDetected); Urn Cannabinoid Scrn Not Detected (NotDetected)
--- NOTE | 2018-12-23 13:26 | P.CNNES ---
History of Present Illness Consult date: 12/23/18 Reason for Consult: Altered mental status History of Present Illness: Patient is a 53-year-old male, who has long-standing history of memory loss, possible dementia, nonepileptic seizures, follows up with neurologist Dr. Coleman, was seen at's cardiology office, was noted to have bradycardia, was referred to ER. While patient was in the ER, was sitting in the chair, when he became less responsive, for which she was admitted, and neurology consultation initiated. Patient's daughter was present, who is the main caregiver for the patient, as patient himself has dementia. She tells me that patient was admitted to [facility] at epilepsy monitoring units for 2 weeks. He had his typical spells during the period of hospitalization, and was finally diagnosed as nonepileptic seizures. All seizure medications were discontinued. Patient currently is on Aricept 10 mg daily and Namenda 10 mg twice a day. He has been to [facility] for memory loss also. At present patient denies any focal symptoms. He does have history of severe obstructive sleep apnea and uses CPAP machine. Patient underwent computed tomography scan of head, which revealed no acute process. CTA of head and neck, which was negative. EKG showed marked sinus bradycardia. Chest x-ray no acute process. Blood tests shows normal CBC, PT/PTT. Chem-7, liver functions are normal. TSH normal. Urine drug screen positive for opiates and benzodiazepine. On review of records, patient had an MRI of brain performed 09/03/2015, which showed no significant white matter disease. His previous MRI of thoracic spine from 06/08/2015 showed small disc herniations. His previous urine drug screen on 09/26/2018 was positive for phencyclidine. Patient denies use of any drugs. Patient denies risk factors for HIV. Review of Systems As above in detail. Past Medical History Past Medical History: Asthma, Chest Pain / Angina, Dementia, GERD/Reflux, GI Bleed, Hypertension, Memory Impairment, Seizure Disorder Additional Past Medical History / Comment(s): Nonepileptic seizures with last one being 12/17/18, small hiatal hernia, chronic low back pain, migraines, lower and upper GI bleeds, hemorrhoids, JILLIAN with Cpap History of Any Multi-Drug Resistant Organisms: None Reported Past Surgical History: No Surgical Hx Reported Additional Past Surgical History / Comment(s): EGD, colonoscopy, bilateral myringotomies/tubes, vasectomy Past Anesthesia/Blood Transfusion Reactions: No Reported Reaction, Motion Sickness Additional Past Anesthesia/Blood Transfusion Reaction / Comment(s): Pt has clausterphobia Smoking Status: Light tobacco smoker - Past Family History Mother Family Medical History: CVA/TIA, Myocardial Infarction ([place]) Additional Family Medical History / Comment(s): Mother is . Father Family Medical History: Coronary Artery Disease (CAD) Additional Family Medical History / Comment(s): Father is living. He has a pacemaker and has had CABG Medications and Allergies Home Medications Medication Instructions Recorded Confirmed Type Hydrocodone/Acetaminophen [[place] 1 tab PO TID 12/29/13 12/22/18 History 10-325] Metoprolol Tartrate [Lopressor] 25 mg PO BID 12/29/13 12/22/18 History Donepezil [Aricept] 20 mg PO HS 12/10/15 12/22/18 History Famotidine 20 mg PO BID 12/10/15 12/22/18 History Verapamil HCl [Calan] 120 mg PO TID 10/23/16 12/22/18 History Allopurinol [Zyloprim] 300 mg PO DAILY 09/26/18 12/22/18 History Citalopram Hydrobromide [CeleXA] 10 mg PO DAILY 09/26/18 12/22/18 History Memantine [Namenda] 10 mg PO BID 09/26/18 12/22/18 History clonazePAM [KlonoPIN] 1 mg PO TID 09/26/18 12/22/18 History Allergies Allergy/AdvReac Type Severity Reaction Status Date / Time venom-honey bee Allergy Anaphylaxis Verified 12/22/18 18:52 [bee venom (honey bee)] Physical Examination - Vital Signs Vital Signs: Vital Signs Temp Pulse Pulse Resp BP BP Pulse Ox 12/23/18 12:15 97.9 F 55 L 16 123/83 96 12/23/18 09:01 58 L 18 145/86 98 12/23/18 04:00 97.1 F L 45 L 16 127/77 95 12/22/18 20:00 45 L 12 100 12/22/18 19:50 49 L 8 L 150/81 99 12/22/18 19:40 150/81 12/22/18 19:30 44 L 3 L 150/81 99 12/22/18 19:20 42 L 4 L 150/81 99 12/22/18 19:10 44 L 3 L 150/81 99 12/22/18 19:00 49 L 9 L 150/81 99 12/22/18 18:50 51 L 27 H 99 12/22/18 18:49 22 12/22/18 17:16 97.0 F L 55 L 16 110/68 96 Intake and Output 12/22/18 12/23/18 12/23/18 22:59 06:59 14:59 Other: Weight 71.668 kg On examination patient is a middle aged male, who is laying comfortably in the bed. Patient is alert and awake. He has a flat affect. Speech and language functions are normal. On cranial nerve examination pupils are round and reacting visual dash are full except muscles are intact. Face is symmetric and tongue protrudes the midline on muscle strength testing there is no drift and the strength is normal in arms and legs distally and proximally. Reflexes symmetric and plantars downgoing sensory touch is equal. No ataxia for [id number] testing, tone and bulk of muscles normal. Gait deferred. Results - Laboratory Findings CBC and BMP: 12/23/18 07:59 12/22/18 18:59 Abnormal Lab Findings: Abnormal Labs 12/22/18 12/23/18 18:59 07:59 ALT 18 L Creatine Kinase 1077 H* Free T4 0.73 L Assessment and Plan Assessment: * Episode of altered mental status, likely physiologic due to sleep. Patient does have obstructive sleep apnea, therefore may have gone into sleep onset REM. Current examination is nonfocal. * History of nonepileptic seizures. * History of dementia, on cognitive enhancing medications * Bradycardia Plan: * No other neurological workup indicated. * We will check RPR, B12 * Patient's CK just got elevated acutely, may need to follow-up on the level. * Cardiology on the case for bradycardia. * Patient needs to follow-up with his neurologist as outpatient.
--- NOTE | 2018-12-23 14:01 | P.CRDCN ---
History of Present Illness History of present illness: This is a pleasant 53-year-old male past medical history significant for hypertension, seizures, progressive memory loss, dyslipidemia and sleep apnea. He denies history of coronary artery disease and does not follow regularly with radiology aide for any reason. We've been asked to see him in consultation secondary to bradycardia. He apparently was at his primary care physician's office and was noted to be profoundly bradycardic and sent to the hospital for further evaluation. On arrival EKG obtained revealed sinus bradycardia heart rate of 47. Per the daughter who is the patient's main caregiver he was recently admitted to [facility] in September for seizures and uncontrolled hypertension. At that time his verapamil was increased to 3 times a day. Patient was seen and examined resting comfortably in bed in no acute distress. He denies any symptoms of chest discomfort, shortness of breath, palpitations, nausea, vomiting or diaphoresis. He does describe in termittent feelings of lightheadedness. There is no dizziness or room spinning. Apparently in the emergency department he had an episode of altered mental status and was somewhat unresponsive and for that reason neurology is also seeing the patient. Chest x-ray is negative for an acute cardiopulmonary process, CT of the head and neck is negative. Laboratory data reviewed, WBC 6.8, hemoglobin 15.4, platelets 140, potassium 4.5, creatinine 0.91, magnesium 2.2, troponin negative 3, CK 1077, TSH 0.961 with a free T4 0.73. Current cardiac medications include verapamil 120 mg 3 times a day Lopressor 25 mg twice a day. At the time of my exam: CONSTITUTIONAL: Denies fever. Denies chills. EYES: Denies blurred vision. Denies vision changes. Denies eye pain. EARS, NOSE, MOUTH & THROAT: Denies headache. Denies sore throat. Denies ear pain. CARDIOVASCULAR: Denies chest pain. Denies shortness of breath. Denies orthopnea. Denies PND. Denies palpitations. RESPIRATORY: Denies cough. GASTROINTESTINAL: Denies abdominal pain. Denies diarrhea. Denies constipation. Denies nausea. Denies vomiting. MUSCULOSKELETAL: Denies myalgias. INTEGUMENTARY: Denies pruitis. Denies rash. NEUROLOGIC: Denies numbness. Denies tingling. Denies weakness. PSYCHIATRIC: Denies anxiety. Denies depression. ENDOCRINE: Denies fatigue. Denies weight change. Denies polydipsia. Denies polyurina. GENITOURINARY: Denies burning, hematuria or urgency with micturation. HEMATOLOGIC: Denies history of anemia. Denies bleeding. Blood pressure 145/82 heart rate 60 afebrile maintaining oxygen saturation on room air GENERAL: This is a 53-year-old male in no apparent distress at the time of my examination. HEENT: Head is atraumatic, normocephalic. Pupils are equal, round. Sclerae anicteric. Conjunctivae are clear. Mucous membranes of the mouth are moist. Neck is supple. There is no jugular venous distention. No carotid bruit is heard. LUNGS: Clear to auscultation no wheezes, rales or rhonchi. No chest wall ten derness is noted on palpation or with deep breathing. HEART: Regular rate and rhythm without murmurs, rubs or gallops. S1 and S2 heard. ABDOMEN: Soft, nontender. Bowel sounds are heard. No organomegaly noted. EXTREMITIES: No evidence of peripheral edema and no calf tenderness noted. VASCULAR: Radial and dorsalis pedis pulses palpated, no evidence of clubbing. NEUROLOGIC: Patient is awake, alert and oriented. ASSESSMENT Bradycardia, sinus. Altered mental status Hypertension History of seizures Dementia PLAN An acute coronary event has been ruled out. No EKG evidence of ischemia and negative cardiac enzymes. No chest pain verbalized. Hold lopressor and verapamil and continue to monitor heart rate on telemetry. Avoid AV ness blocking agents. Initiate on amlodipine 10 mg at HS. Ongoing telemetry monitoring. Repeat EKG in the morning. Thank you kindly for this consultation. Nurse Practitioner note has been reviewed, I agree with a documented findings and plan of care. Patient was seen and examined. Past Medical History Past Medical History: Asthma, Chest Pain / Angina, Dementia, GERD/Reflux, GI Bleed, Hypertension, Memory Impairment, Seizure Disorder Additional Past Medical History / Comment(s): Nonepileptic seizures with last one being 12/17/18, small hiatal hernia, chronic low back pain, migraines, lower and upper GI bleeds, hemorrhoids, JILLIAN with Cpap History of Any Multi-Drug Resistant Organisms: None Reported Past Surgical History: No Surgical Hx Reported Additional Past Surgical History / Comment(s): EGD, colonoscopy, bilateral myringotomies/tubes, vasectomy Past Anesthesia/Blood Transfusion Reactions: No Reported Reaction, Motion Sickness Additional Past Anesthesia/Blood Transfusion Reaction / Comment(s): Pt has clausterphobia Smoking Status: Light tobacco smoker - Past Family History Mother Family Medical History: CVA/TIA, Myocardial Infarction ([place]) Additional Family Medical History / Comment(s): Mother is . Father Family Medical History: Coronary Artery Disease (CAD) Additional Family Medical History / Comment(s): Father is living. He has a pacemaker and has had CABG Medications and Allergies Home Medications Medication Instructions Recorded Confirmed Type Hydrocodone/Acetaminophen [[place] 1 tab PO TID 12/29/13 12/22/18 History 10-325] Metoprolol Tartrate [Lopressor] 25 mg PO BID 12/29/13 12/22/18 History Donepezil [Aricept] 20 mg PO HS 12/10/15 12/22/18 History Famotidine 20 mg PO BID 12/10/15 12/22/18 History Verapamil HCl [[place]] 120 mg PO TID 10/23/16 12/22/18 History Allopurinol [Zyloprim] 300 mg PO DAILY 09/26/18 12/22/18 History Citalopram Hydrobromide [CeleXA] 10 mg PO DAILY 09/26/18 12/22/18 History Memantine [Namenda] 10 mg PO BID 09/26/18 12/22/18 History clonazePAM [KlonoPIN] 1 mg PO TID 09/26/18 12/22/18 History Allergies Allergy/AdvReac Type Severity Reaction Status Date / Time venom-honey bee Allergy Anaphylaxis Verified 12/22/18 18:52 [bee venom (honey bee)] Physical Exam Vitals: Vital Signs Temp Pulse Pulse Pulse Resp BP BP 12/23/18 13:36 97.9 F 60 16 145/82 12/23/18 13:10 50 L 16 123/83 12/23/18 12:15 97.9 F 55 L 16 123/83 12/23/18 09:01 58 L 18 145/86 12/23/18 04:00 97.1 F L 45 L 16 12/22/18 20:00 45 L 12 12/22/18 19:50 49 L 8 L 150/81 05/29/19 19:40 150/81 12/22/18 19:30 44 L 3 L 150/81 12/22/18 19:20 42 L 4 L 150/81 12/22/18 19:10 44 L 3 L 150/81 12/22/18 19:00 49 L 9 L 150/81 12/22/18 18:50 51 L 27 H 12/22/18 18:49 22 12/22/18 17:16 97.0 F L 55 L 16 110/68 BP Pulse Ox 12/23/18 13:36 97 12/23/18 13:10 99 12/23/18 12:15 96 12/23/18 09:01 98 12/23/18 04:00 127/77 95 12/22/18 20:00 100 12/22/18 19:50 99 12/22/18 19:40 12/22/18 19:30 99 12/22/18 19:20 99 12/22/18 19:10 99 12/22/18 19:00 99 12/22/18 18:50 99 12/22/18 18:49 12/22/18 17:16 96 Intake and Output 12/22/18 12/23/18 12/23/18 22:59 06:59 14:59 Other: Weight 71.668 kg Results 12/23/18 07:59 12/22/18 18:59 Cardiac Enzymes 12/22/18 12/22/18 12/23/18 Range/Units 18:59 19:55 02:19 AST 36 (17-59) U/L Troponin I <0.012 <0.012 (0.000-0.034) ng/mL 12/23/18 Range/Units 07:59 AST (17-59) U/L Troponin I <0.012 (0.000-0.034) ng/mL Coagulation 12/22/18 Range/Units 18:59 PT 10.2 (9.0-12.0) sec APTT 22.8 (22.0-30.0) sec CBC 12/22/18 12/23/18 Range/Units 18:59 07:59 WBC 7.6 6.8 (3.8-10.6) k/uL RBC 5.49 5.28 (4.30-5.90) m/uL Hgb 16.0 15.4 (13.0-17.5) gm/dL Hct 49.4 47.7 (39.0-53.0) % Plt Count 296 234 (150-450) k/uL Comprehensive Metabolic Panel 12/22/18 Range/Units 18:59 Sodium 140 (137-145) mmol/L Potassium 4.5 (3.5-5.1) mmol/L Chloride 104 (98-107) mmol/L Carbon Dioxide 27 (22-30) mmol/L BUN 13 (9-20) mg/dL Creatinine 0.91 (0.66-1.25) mg/dL Glucose 85 (74-99) mg/dL Calcium 9.7 (8.4-10.2) mg/dL AST 36 (17-59) U/L ALT 18 L (21-72) U/L Alkaline Phosphatase 63 (38-126) U/L Total Protein 7.2 (6.3-8.2) g/dL Albumin 4.6 (3.5-5.0) g/dL Current Medications Generic Name Dose Route Start Last Admin Trade Name Freq PRN Reason Stop Dose Admin Citalopram Hydrobromide 10 mg 12/24/18 09:00 Celexa PO DAILY KAY Donepezil HCl 20 mg 12/23/18 21:00 Aricept PO HS KAY Famotidine 20 mg 12/23/18 21:00 Pepcid PO BID KAY Sodium Chloride 1,000 mls @ 20 mls/hr 12/22/18 21:30 12/23/18 06:33 Saline 0.9% IV 20 mls/hr .Q24H KAY Administration Memantine 10 mg 12/23/18 21:00 Namenda PO BID KAY Naloxone HCl 0.2 mg 12/22/18 21:25 Narcan IV Q2M PRN Opioid Reversal Intake and Output 12/22/18 12/23/18 12/23/18 22:59 06:59 14:59 Other: Weight 71.668 kg 12/23/18 07:59 12/22/18 18:59
[2018-12-23 14:57] LABS: Cholesterol 226 mg/dL (<200); HDL Cholesterol 44 mg/dL (40-60); LDL Cholesterol,Calculated 144 mg/dL (0-99); Triglycerides 189 mg/dL (<150)
[2018-12-23 15:12] LABS: ALT 22 U/L (21-72); AST 48 U/L (17-59); Albumin 4.3 g/dL (3.5-5.0); Alkaline Phosphatase 59 U/L (38-126); Anion Gap 12 mmol/L; Blood Urea Nitrogen 12 mg/dL (9-20); Calcium 9.3 mg/dL (8.4-10.2); Carbon Dioxide 22 mmol/L (22-30); Chloride 105 mmol/L (98-107); Glucose 68 mg/dL (74-99); Phosphorus 3.8 mg/dL (2.5-4.5); Sodium 139 mmol/L (137-145); Total Protein 6.8 g/dL (6.3-8.2)
[2018-12-23 15:20] LABS: Potassium 4.8 mmol/L (3.5-5.1)
[2018-12-23] MEDS: amLODIPine 10 MG TAB PO SCH (20:16)
[2018-12-23] MEDS: MEMANTINE 10 MG TAB PO SCH (20:16)
[2018-12-23] MEDS: DONEPEZIL 10 MG TAB PO SCH (20:16)
[2018-12-23] MEDS: FAMOTIDINE 20 MG TAB PO SCH (20:16)
[2018-12-23 23:49] LABS: Folate, Serum 13.3 ng/mL
[2018-12-24] MEDS: SODIUM CHLORIDE 0.9% 1,000 ML IV SCH (06:28)
--- NOTE | 2018-12-24 07:43 | P.PN ---
Subjective Progress Note Date: 12/24/18 Principal diagnosis: Symptomatic bradycardia This is a pleasant 53-year-old gentleman with a past medical history significant for hypertension and dyslipidemia who was admitted to the hospital yesterday with symptoms of dizziness and lightheadedness without syncope. He was found to be bradycardic. He was receiving Lopressor as well as verapamil. The dose of verapamil was increased recently at [facility]. We did hold both medications and we started the patient on amlodipine. On follow-up with him today, 12/24/2018, he is asymptomatic from a cardiovascular standpoint of view. The heart rate has improved. The blood pressure seems to be within normal limits. From a cardiovascular standpoint of view, the patient can be discharged home. Objective - Vital Signs Vital signs: Vital Signs Temp 98.3 F 12/24/18 03:33 Pulse 61 12/24/18 04:00 Resp 16 12/24/18 04:00 BP 111/71 12/24/18 03:33 Pulse Ox 96 12/24/18 03:33 Intake & Output 12/23/18 12/24/18 12/24/18 18:59 06:59 18:59 Intake Total 360 Balance 360 Intake: Oral 360 Other: Voiding Method Toilet Toilet # Voids 1 - Constitutional General appearance: Present: no acute distress - Respiratory Respiratory: bilateral: CTA - Cardiovascular Rhythm: regular Heart sounds: normal: S1, S2 - Labs CBC & Chem 7: 12/23/18 07:59 12/23/18 07:59 Labs: Abnormal Lab Results - Last 24 Hours (Table) 12/23/18 12/23/18 12/23/18 Range/Units 07:59 07:59 12:30 Glucose 68 L (74-99) mg/dL Creatine Kinase 1077 H* (55-170) U/L Triglycerides (<150) mg/dL Cholesterol (<200) mg/dL LDL Cholesterol, Calc (0-99) mg/dL Urine Ketones 1+ H (Negative) Urine Opiates Screen Detected H (NotDetected) U Benzodiazepines Scrn Detected H (NotDetected) 12/23/18 Range/Units 14:25 Glucose (74-99) mg/dL Creatine Kinase (55-170) U/L Triglycerides 189 H (<150) mg/dL Cholesterol 226 H (<200) mg/dL LDL Cholesterol, Calc 144 H (0-99) mg/dL Urine Ketones (Negative) Urine Opiates Screen (NotDetected) U Benzodiazepines Scrn (NotDetected) Assessment and Plan Assessment: Assessment #1 symptomatic bradycardia has improved Plan #1 continue holding any AV ness blocking agents. #2 continue amlodipine #3 the patient can be discharged home
[2018-12-24] MEDS: CITALOPRAM HYDROBROMIDE 10 MG TAB PO SCH (09:01)
[2018-12-24] MEDS: FAMOTIDINE 20 MG TAB PO SCH ×2 (09:01→20:14)
[2018-12-24] MEDS: MEMANTINE 10 MG TAB PO SCH ×2 (09:01→20:15)
[2018-12-24 11:27] LABS: HCT 53.1 % (39.0-53.0); HGB 17.3 gm/dL (13.0-17.5); MCH 29.6 pg (25.0-35.0); MCHC 32.6 g/dL (31.0-37.0); MCV 90.7 fL (80.0-100.0); Mean Platelet Volume 6.5; Platelet Count 289 k/uL (150-450); RBC 5.85 m/uL (4.30-5.90); RDW 13.3 % (11.5-15.5); WBC 10.9 k/uL (3.8-10.6)
--- NOTE | 2018-12-24 13:24 | P.PN ---
Subjective 53-year-old male was bradycardic and sent from PCPs office because of symptomatic bradycardia with a blood cultures were discontinued. Patient is cl inically doing well at this time neurology evaluate the patient as well because of possible altered mental status although presently patient doesn't have any altered mental status please refer to neurology evaluation for further details. Patient also today has multiple episodes of lower GI bleed bright blood per rectum we'll repeat hemoglobin today and tomorrow morning and the gastric gastroneurology will be consulted patient will be made inpatient. Constitutional: Denied any fatigue denied any fever. Cardio vascular: denied any chest pain, palpitations Gastrointestinal denied any nausea vomiting Pulmonary: Denied any shortness of breath cough Neurologic denied any new focal deficits All inpatient medications were reviewed and appropriate changes in these medications as dictated in the interval history and assessment and plan. Objective - Vital Signs Vital signs: Vital Signs Temp 97.5 F L 12/24/18 08:00 Pulse 72 12/24/18 11:01 Resp 17 12/24/18 11:01 BP 156/80 12/24/18 11:01 Pulse Ox 98 12/24/18 11:01 Intake & Output 12/23/18 12/24/18 12/24/18 18:59 06:59 18:59 Intake Total 360 0 Balance 360 0 Intake: Oral 360 0 Other: Voiding Method Toilet Toilet Toilet # Voids 1 1 - Exam PHYSICAL EXAMINATION: GENERAL: The patient is alert and oriented x3, not in any acute distress. Well developed, well nourished. HEENT: Pupils are round and equally reacting to light. EOMI. No scleral icterus. No conjunctival pallor. Normocephalic, atraumatic. No pharyngeal erythema. No thyromegaly. CARDIOVASCULAR: S1 and S2 present. No murmurs, rubs, or gallops. PULMONARY: Chest is clear to auscultation, no wheezing or crackles. ABDOMEN: Soft, nontender, nondistended, normoactive bowel sounds. No palpable organomegaly. MUSCULOSKELETAL: No joint swelling or deformity. EXTREMITIES: No cyanosis, clubbing, or pedal edema. NEUROLOGICAL: Gross neurological examination did not reveal any focal deficits. SKIN: No rashes. - Labs CBC & Chem 7: 12/24/18 09:24 12/23/18 07:59 Labs: Abnormal Lab Results - Last 24 Hours (Table) 05/30/19 05/30/19 05/31/19 Range/Units 07:59 14:25 09:24 WBC 10.9 H (3.8-10.6) k/uL Hct 53.1 H (39.0-53.0) % Glucose 68 L (74-99) mg/dL Triglycerides 189 H (<150) mg/dL Cholesterol 226 H (<200) mg/dL LDL Cholesterol, Calc 144 H (0-99) mg/dL Assessment and Plan Plan: 1 possible lower GI bleed: Gastroenterology was consulted etiology is not clear. Patient will be monitored overnight repeat hemoglobin tomorrow. -Sinus bradycardia: Secondary to beta blockers. In heart rate is getting better at this time -Hyperlipidemia patient was started on statin -Asthma without any acute exacerbation -Gastroesophageal reflux reflux disease -Patient does have symptoms of gastritis as well which is nausea vomiting for which we'll use Protonix -Seizure disorder -Anxiety disorder. For above-mentioned chronic medical problems patient will be continued on present medications appropriate changes in medications were made.
--- NOTE | 2018-12-24 13:58 | ECHOF ---
Referral Reason:bradycardia MEASUREMENTS -------- HEIGHT: 165.1 cm WEIGHT: 71.7 kg BP: 111/71 RVIDd: 3.2 cm (< 3.3) IVSd: 1.0 cm (0.6 - 1.1) LVIDd: 4.8 cm (3.9 - 5.3) LVPWd: 1.0 cm (0.6 - 1.1) IVSs: 1.5 cm LVIDs: 3.1 cm LVPWs: 1.5 cm LAESV Index (A-L): 20.49 ml/m Ao Diam: 3.3 cm (2.0 - 3.7) AV Cusp: 1.7 cm (1.5 - 2.6) LA Diam: 3.1 cm (2.7 - 3.8) EPSS: 0.5 cm MV E Mp: 0.53 m/s MV DecT: 210 ms MV A Mp: 0.69 m/s MV E/A Ratio: 0.77 RAP: 5.00 mmHg RVSP: 14.79 mmHg MV EF SLOPE: 104.60 mm/s (70 - 150) MV EXCURSION: 1.73 cm (> 18.000) FINDINGS -------- Sinus rhythm. This was a technically adequate study. The left ventricular size is normal. There is borderline concentric left ventricular hypertrophy. Overall left ventricular systolic function is normal with, an EF between 55 - 60 %. The right ventricle is mildly enlarged. The left atrial size is normal. Left atrium is normal size by volume. The right atrial size is normal. Interatrial and interventricular septum intact. The aortic valve is trileaflet and appears structurally normal. Mild mitral annular calcification present. There is trace mitral regurgitation. Trace tricuspid regurgitation present. There is no evidence of pulmonary hypertension. The right ventricular systolic pressure, as measured by Doppler, is 14.79mmHg. The pulmonic valve is normal. The aortic root size is normal. IVC not visualized There is no pericardial effusion. CONCLUSIONS -------- 1. Sinus rhythm. 2. This was a technically adequate study. 3. The left ventricular size is normal. 4. There is borderline concentric left ventricular hypertrophy. 5. Overall left ventricular systolic function is normal with, an EF between 55 - 60 %. 6. The right ventricle is mildly enlarged. 7. The left atrial size is normal. 8. Left atrium is normal size by volume. 9. The right atrial size is normal. 10. Interatrial and interventricular septum intact. 11. The aortic valve is trileaflet and appears structurally normal. 12. Mild mitral annular calcification present. 13. There is trace mitral regurgitation. 14. Trace tricuspid regurgitation present. 15. There is no evidence of pulmonary hypertension. 16. The right ventricular systolic pressure, as measured by Doppler, is 14.79mmHg. 17. The pulmonic valve is normal. 18. The aortic root size is normal. 19. IVC not visualized 20. There is no pericardial effusion. TRACK ANNOUNCER: Lexi Pederson RDCS
[2018-12-24 16:04] VITALS: BMI 26.2
[2018-12-24] MEDS: amLODIPine 10 MG TAB PO SCH (20:14)
[2018-12-24] MEDS: PANTOPRAZOLE 40 MG/10 ML VIAL IVP SCH (20:14)
[2018-12-24] MEDS: DONEPEZIL 10 MG TAB PO SCH (20:20)
--- NOTE | 2018-12-24 20:27 | P.CONS ---
History of Present Illness - Reason for Consult Consult date: 12/24/18 GI bleed Requesting physician: Alka Todd - Chief Complaint Weak, tired, increased confusion - History of Present Illness 53-year-old male with medical history of asthma, angina, dementia, GERD, hypertension, seizure disorder and reported history of previous lower GI bleed secondary to hemorrhoids who initially presented to the hospital with a constellation of complaints. At that time the patient was reporting feeling tired, weak and with increasing confusion. The patient was seen by the cardiology service with echocardiogram performed and diagnosis of symptomatic bradycardia secondary to AV ness blocking agent. The patient was set to be discharged when he developed an episode of bright red blood per rectum. The patient denies any pain in his abdomen and as previously stated reports a remote history over 5 years ago at which time colonoscopy was performed for lower GI bleeding which she was told was due to hemorrhoids, the patient believes he had cauterization at that time. The patient had a second episode of bright red blood per rectum and subsequently had multiple episodes of nonbloody, non- melanotic loose stool. The patient also reports a history of gastroesophageal reflux disease for which she is on H2 antagonist therapy at home. The patient had EGD in 07/2014 which was significant for a hiatal hernia, antritis and was performed for investigation of reflux and reported coffee-ground emesis. Patient's hemoglobin has remained stable at 15.4 and then 17.3 on repeat. INR 0.9, total bilirubin 1, alkaline phosphatase 59, AST 48 and ALT 22. Patient had CT angiography of the chest on presentation which was negative. Review of Systems REVIEW OF SYSTEMS: CONSTITUTIONAL: Denies any fevers, chills, weight change but did report fatigue and tiredness on presentation which is improved. CARDIOVASCULAR: Denies any chest pain, palpitations high or low blood pressures RESPIRATORY: Denies any shortness of breath, hemoptysis or cough. GENITOURINARY: No dysuria or hematuria. MUSCULOSKELETAL: No weakness reported. SKIN: Denies any new rashes or lesions, jaundice or pallor. PSYCHIATRIC: Denies any depression or anxiety. NEUROLOGY: Denies headache, denies any new focal deficits history of seizure disorder. EARS/NOSE/THROAT: No recent hearing change, congestion, nasal discharge or sore throat. EYES: No pain in eyes, discharge or change in vision. GASTROINTESTINAL: As per HPI. Past Medical History Past Medical History: Asthma, Chest Pain / Angina, Dementia, GERD/Reflux, GI Bleed, Hypertension, Memory Impairment, Seizure Disorder Additional Past Medical History / Comment(s): Nonepileptic seizures with last one being 12/17/18, small hiatal hernia, chronic low back pain, migraines, lower and upper GI bleeds, hemorrhoids, JILLIAN with Cpap History of Any Multi-Drug Resistant Organisms: None Reported Past Surgical History: No Surgical Hx Reported Additional Past Surgical History / Comment(s): EGD, colonoscopy, bilateral myri ngotomies/tubes, vasectomy Past Anesthesia/Blood Transfusion Reactions: No Reported Reaction, Motion Sickness Additional Past Anesthesia/Blood Transfusion Reaction / Comm: Pt has clausterphobia Smoking Status: Light tobacco smoker - Past Family History Mother Family Medical History: CVA/TIA, Myocardial Infarction (MA) Additional Family Medical History / Comment(s): Mother is . Father Family Medical History: Coronary Artery Disease (CAD) Additional Family Medical History / Comment(s): Father is living. He has a pacemaker and has had CABG Medications and Allergies Home Medications Medication Instructions Recorded Confirmed Type Hydrocodone/Acetaminophen [[place] 1 tab PO TID 12/29/13 12/22/18 History 10-325] Metoprolol Tartrate [Lopressor] 25 mg PO BID 12/29/13 12/22/18 History Donepezil [Aricept] 20 mg PO HS 12/10/15 12/22/18 History Famotidine 20 mg PO BID 12/10/15 12/22/18 History Verapamil HCl [Calan] 120 mg PO TID 10/23/16 12/22/18 History Allopurinol [Zyloprim] 300 mg PO DAILY 09/26/18 12/22/18 History Citalopram Hydrobromide [CeleXA] 10 mg PO DAILY 09/26/18 12/22/18 History Memantine [Namenda] 10 mg PO BID 09/26/18 12/22/18 History clonazePAM [KlonoPIN] 1 mg PO TID 09/26/18 12/22/18 History Allergies Allergy/AdvReac Type Severity Reaction Status Date / Time venom-honey bee Allergy Anaphylaxis Verified 12/22/18 18:52 [bee venom (honey bee)] Physical Exam Vitals: Vital Signs Temp Pulse Pulse Resp BP BP Pulse Ox 12/24/18 14:21 98.0 F 85 18 131/86 98 12/24/18 11:01 72 17 156/80 98 12/24/18 08:00 97.5 F L 56 L 16 146/85 98 12/24/18 04:00 61 16 12/24/18 03:33 98.3 F 87 16 111/71 96 12/23/18 23:36 97.4 F L 56 L 16 173/86 97 12/23/18 19:27 81 15 133/79 96 Intake and Output 12/24/18 12/24/18 12/24/18 06:59 14:59 22:59 Intake Total 0 Balance 0 Intake: Oral 0 Other: Voiding Method Toilet Toilet # Voids 1 On physical examination, patient appears comfortable in no apparent distress. HEAD: Normocephalic, atraumatic. EYES: No scleral icterus. No conjunctival injection. MOUTH: No lesions, tongue midline. NECK: Trachea midline, no gross abnormalities. CHEST: Clear to auscultation with no wheezing or rhonchi appreciated. HEART: S1-S2 appreciated. ABDOMEN: Soft. Bowel sounds are positive. No organomegaly. No guarding or rigidity. EXTREMITIES: No pedal edema. SKIN: No rashes, no jaundice. NEUROLOGIC: Alert and oriented to person and place. No focal deficits. Results CBC & Chem 7: 12/24/18 09:24 12/23/18 07:59 Labs: Abnormal Lab Results - Last 24 Hours (Table) 12/23/18 12/24/18 Range/Units 07:59 09:24 WBC 10.9 H (3.8-10.6) k/uL Hct 53.1 H (39.0-53.0) % Glucose 68 L (74-99) mg/dL CT scan - chest: report reviewed (CT angiography of the chest on presentation which was negative.) Assessment and Plan (1) Bright red blood per rectum Narrative/Plan: 53-year-old male admitted for symptomatic bradycardia subsequently developed bright red blood per rectum. Patient reports to episodes of painless bleeding with subsequent nonbloody loose stool reported. Patient reports last colonoscopy was over 5 years ago and performed an investigation of blood per rectum which patient states was secondary to hemorrhoids. His last EGD on file was in 07/2014 for investigation of reflux and coffee-ground emesis with findings of antritis and a hiatal hernia. Hemoglobin has remained stable at 17.3 from 15.4 previously. Suspicion is for hemorrhoidal disease in the setting of painless bleeding with a normal hemoglobin and which has subsided without intervention, also consider AVM, colonic ulceration, or less likely malignancy. Current Visit: Yes Status: Acute Code(s): K62.5 - HEMORRHAGE OF ANUS AND RECTUM SNOMED Code(s): 85112364 (2) GERD (gastroesophageal reflux disease) Narrative/Plan: Controlled on twice daily Pepcid therapy. Current Visit: Yes Status: Acute Code(s): K21.9 - GASTRO-ESOPHAGEAL REFLUX DISEASE WITHOUT ESOPHAGITIS SNOMED Code(s): 145196022 Plan: Supportive care Okay for diet Continue to monitor stool output Continue to monitor hemoglobin and hematocrit and transfuse as needed Anusol ordered for local hemorrhoidal care Stool studies ordered in the setting of loose stool Patient will benefit from follow-up in the outpatient setting and consideration for outpatient colonoscopy Thank you for allowing us to participate in the care of the patient we will continue to follow
--- NOTE | 2018-12-24 21:03 | P.PN ---
Subjective Progress Note Date: 12/24/18 No neuro complaints. Has some swallowing issues, states "food just sits in there" and comes back. Objective - Vital Signs Vital signs: Vital Signs Temp 97.9 F 12/24/18 19:43 Pulse 70 12/24/18 19:43 Resp 16 12/24/18 19:43 BP 161/85 12/24/18 19:43 Pulse Ox 98 12/24/18 19:43 Intake & Output 12/24/18 12/24/18 12/25/18 06:59 18:59 06:59 Intake Total 125 Balance 125 Weight 71.668 kg Intake: Oral 125 Other: Voiding Method Toilet Toilet # Voids 1 # Bowel Movements 5 - Exam Patient is alert and awake in no distress. Exam is unchanged. - Labs CBC & Chem 7: 12/24/18 09:24 12/23/18 07:59 Labs: Abnormal Lab Results - Last 24 Hours (Table) 12/24/18 Range/Units 09:24 WBC 10.9 H (3.8-10.6) k/uL Hct 53.1 H (39.0-53.0) % Assessment and Plan Assessment: * Episode of altered mental status, likely physiologic due to sleep. Patient does have obstructive sleep apnea, therefore may have gone into sleep onset REM. Current examination is nonfocal. * History of nonepileptic seizures. * History of dementia, on cognitive enhancing medications * Bradycardia Plan: * No other neurological workup indicated. * RPR negative, B12 511 normal. * Cholesterol 226 LDL 144, UDS positive for opiates and benzo. * Patient needs to follow-up with his neurologist as outpatient. * Neurologically cleared
[2018-12-25] MEDS: SODIUM CHLORIDE 0.9% 1,000 ML IV SCH (07:36)
[2018-12-25 08:11] VITALS: BP 149/87; PULSE 69; RESP 18; TEMP 97.9
[2018-12-25 08:22] LABS: HCT 51.6 % (39.0-53.0); HGB 16.8 gm/dL (13.0-17.5); MCHC 32.5 g/dL (31.0-37.0); MCV 89.1 fL (80.0-100.0); Mean Platelet Volume 7.3; Platelet Count 278 k/uL (150-450); RBC 5.79 m/uL (4.30-5.90); RDW 14.7 % (11.5-15.5); WBC 12.1 k/uL (3.8-10.6)
[2018-12-25 08:33] LABS: Anion Gap 14 mmol/L; Blood Urea Nitrogen 11 mg/dL (9-20); Calcium 10.3 mg/dL (8.4-10.2); Carbon Dioxide 24 mmol/L (22-30); Chloride 103 mmol/L (98-107); Glucose 120 mg/dL (74-99); Potassium 3.8 mmol/L (3.5-5.1); Sodium 141 mmol/L (137-145)
[2018-12-25] MEDS ORDERED: HYDROCORTISONE SUPPOSITORY 25 MG SUPP RECTAL SCH (09:00)
[2018-12-25] MEDS: MEMANTINE 10 MG TAB PO SCH (09:47)
[2018-12-25] MEDS: CITALOPRAM HYDROBROMIDE 10 MG TAB PO SCH (09:47)
[2018-12-25] MEDS: PANTOPRAZOLE 40 MG/10 ML VIAL IVP SCH (09:48)
[2018-12-25] MEDS: FAMOTIDINE 20 MG TAB PO SCH (09:48)
--- NOTE | 2018-12-25 12:34 | P.DS ---
Providers Date of admission: 12/24/18 10:52 Attending physician: Jerad Lucero Consults: 12/22/18 21:26 Consult Physician Urgent Consulting Provider: Erwin Ferreira Consult Reason/Comments: bradycardia Do you want consulting provider notified?: Yes Consult Physician Urgent Consulting Provider: Abel Miles Consult Reason/Comments: Altered mental status Do you want consulting provider notified?: Yes 12/24/18 10:41 Consult Physician Routine Consulting Provider: Jay Ivory Consult Reason/Comments: GI Bleed Do you want consulting provider notified?: Yes Primary care physician: Jerad Lucero [facility] Course: 53-year-old male was bradycardic and sent from PCPs office because of symptomatic bradycardia with a blood cultures were discontinued. Patient is clinically doing well at this time neurology evaluate the patient as well because of possible altered mental status although presently patient doesn't have any altered mental status please refer to neurology evaluation for further details. Patient also today has multiple episodes of lower GI bleed bright blood per rectum we'll repeat hemoglobin today and tomorrow morning and the gastric gastroneurology will be consulted patient will be made inpatient. 11/24/2018 Patient surgically ablated resolved patient will be discharged today on a muscle pain. Verapamil and beta eric were discontinued bradycardia resolved at this time. Patient was started on amlodipine for blood pressure. Altered mental status if at all he has any probably related to bradycardia. PHYSICAL EXAMINATION: GENERAL: The patient is alert and oriented x3, not in any acute distress. Well developed, well nourished. HEENT: Pupils are round and equally reacting to light. EOMI. No scleral icterus. No conjunctival pallor. Normocephalic, atraumatic. No pharyngeal erythema. No thyromegaly. CARDIOVASCULAR: S1 and S2 present. No murmurs, rubs, or gallops. PULMONARY: Chest is clear to auscultation, no wheezing or crackles. ABDOMEN: Soft, nontender, nondistended, normoactive bowel sounds. No palpable organomegaly. MUSCULOSKELETAL: No joint swelling or deformity. EXTREMITIES: No cyanosis, clubbing, or pedal edema. NEUROLOGICAL: Gross neurological examination did not reveal any focal deficits. SKIN: No rashes. The rest of the chronic medical problems as position course please refer to my dictation of progress note from yesterday Plan - Discharge Summary Discharge Rx Participant: No New Discharge Prescriptions: New Hydrocortisone Suppository [Anusol-Hc] 25 mg RECTAL DAILY #20 supp amLODIPine [Norvasc] 10 mg PO HS #30 tab Continue Hydrocodone/Acetaminophen [[place] 10-325] 1 tab PO TID Famotidine 20 mg PO BID Donepezil [Aricept] 20 mg PO HS clonazePAM [KlonoPIN] 1 mg PO TID Memantine [Namenda] 10 mg PO BID Citalopram Hydrobromide [CeleXA] 10 mg PO DAILY Allopurinol [Zyloprim] 300 mg PO DAILY Discontinued Metoprolol Tartrate [Lopressor] 25 mg PO BID Verapamil HCl [Calan] 120 mg PO TID Discharge Medication List Hydrocodone/Acetaminophen [[place] 10-325] 1 tab PO TID 12/29/13 [History] Donepezil [Aricept] 20 mg PO HS 12/10/15 [History] Famotidine 20 mg PO BID 12/10/15 [History] Allopurinol [Zyloprim] 300 mg PO DAILY 09/26/18 [History] Citalopram Hydrobromide [CeleXA] 10 mg PO DAILY 09/26/18 [History] Memantine [Namenda] 10 mg PO BID 09/26/18 [History] clonazePAM [KlonoPIN] 1 mg PO TID 09/26/18 [History] Hydrocortisone Suppository [Anusol-Hc] 25 mg RECTAL DAILY #20 supp 12/25/18 [Rx] amLODIPine [Norvasc] 10 mg PO HS #30 tab 12/25/18 [Rx] Follow up Appointment(s)/Referral(s): Jerad Lucero MD [Primary Care Provider] - 3 Days Erwin Ferreira MD [STAFF PHYSICIAN] - 2 Weeks Jay Ivory MD [STAFF PHYSICIAN] - 2 Weeks Discharge Disposition: HOME SELF-CARE
--- NOTE | 2018-12-25 16:55 | PN ---
PROGRESS NOTE DATE OF DICTATION: December 25, 2018 Patient is a 53-year-old pleasant white male admitted to the hospital with severe rectal bleeding of 1 day duration. He had about 2 episodes of significant amount of bright red blood per rectum followed by multiple episodes of loose brown bowel movements. He was seen by Dr. Ivory yesterday and was recommended conservative approach at this time. In the meantime, patient is doing much better. The diarrhea has resolved. No further bleeding noted in the last 24 hours. He denies any nausea, vomiting. Overall he feels much better and wants to go home. PHYSICAL EXAMINATION: He appears comfortable in no apparent distress. Vital signs stable. Blood pressure 131/76, pulse rate 66, temperature 98.2. HEENT examination unremarkable. Conjunctivae pink. Sclerae anicteric. Oral cavity no lesions. Neck no JVD or lymph node enlargement. Chest was clear to auscultation. HEART: Regular rate and rhythm. ABDOMEN: Soft. Bowel sounds are positive. No organomegaly. EXTREMITIES: No pedal edema. SKIN no rashes. NEUROLOGIC: Alert and oriented x3. No focal deficits. LABS: From today WBC 12.1, hemoglobin 16.8, platelets are 273. Basic metabolic panel is within normal limits. IMPRESSION: Rectal bleeding of 1 day duration. Patient had 2 episodes of significant amount of bright red blood per rectum. Last colonoscopy in 2013 showed hemorrhoids. Since being in the hospital, he had no further episodes of bleeding. Hemoglobin stable at 16 g/dL. Most likely, bleeding from internal hemorrhoids but cannot rule out other colonic pathology. RECOMMENDATIONS: 1. Advance diet as tolerated. 2. Since patient is doing well, he can be discharged home today with outpatient follow up with Dr. Ivory in 2 weeks at which time the possibility of colonoscopy can be discussed. MMODL / IJN: [id number] /
[2018-12-25] MEDS ORDERED: PANTOPRAZOLE 40 MG TABLET PO SCH (21:00)
== END 2018-12-25 13:03 | disposition home or self-care (01) | DRG 309 ==
LOC: EC 17:10 → 3SCARD 21:25 → 1SOBS 12-23 07:44 → OBSVTOIN 12-24 10:52
PROVIDERS: ADMIT Family Medicine; ATTEND Family Medicine
DX: R00.1 Bradycardia, unspecified (principal); F11.20 Opioid dependence, uncomplicated; E78.5 Hyperlipidemia, unspecified; F03.90 Unspecified dementia, unspecified severity, without behavioral disturbance, psychotic disturbance, mood disturbance, and anxiety; F17.210 Nicotine dependence, cigarettes, uncomplicated; R56.9 Unspecified convulsions; G47.33 Obstructive sleep apnea (adult) (pediatric); G89.29 Other chronic pain; H91.92 Unspecified hearing loss, left ear; M10.9 Gout, unspecified; G43.909 Migraine, unspecified, not intractable, without status migrainosus; I10 Essential (primary) hypertension; J45.909 Unspecified asthma, uncomplicated; K21.9 Gastro-esophageal reflux disease without esophagitis; K44.9 Diaphragmatic hernia without obstruction or gangrene; K64.8 Other hemorrhoids; Z79.899 Other long term (current) drug therapy; Z82.49 Family history of ischemic heart disease and other diseases of the circulatory system; Z87.19 Personal history of other diseases of the digestive system; M54.9 Dorsalgia, unspecified; Z99.89 Dependence on other enabling machines and devices; Z82.3 Family history of stroke; F40.240 Claustrophobia; Z91.030 Bee allergy status
CPT/HCPCS: 36415; 70450; 70496; 70498; 71046; 80048; 80053; 80061; 80306; 81003; 82550; 82607; 82746; 83630; 83735; 84100; 84439; 84443; 84481; 84484; 85025; 85027; 85379; 85610; 85730; 86780; 87045; 87046; 87324; 93005; 93306; 99285

== ENCOUNTER 2019-07-01 15:44 | Inpatient (IN) | payer MEDICARE ==
--- NOTE | 2019-07-01 18:45 | ED ---
Chest Pain HPI - General Chief Complaint: Recheck/Abnormal Lab/Rx Stated Complaint: elevated blood pressure Time Seen by Provider: 07/01/19 17:50 Source: patient, RN notes reviewed, old records reviewed Mode of arrival: ambulatory Limitations: no limitations - History of Present Illness Initial Comments: This is a 54-year-old male here for evaluation. Specifically there is regards to persistent chest pain and weakness lightheadedness dizziness shortness of breath and occasional diaphoresis. Patient was seen by primary care doctor and sent here for evaluation today. He does have history of high blood pressure. With recent fatigue and weakness she has history of angina, chest pain hypertension and smoking. Patient consented to give her primary care Dr. Lucero. Patient currently with chest pain no shortness of breath no current diaphoresis. No recent travel history or sick contact MD Complaint: chest pain -: week(s) Onset: during rest, during exertion Pain Location: left chest Pain Radiation: back Severity: moderate Severity scale (1-10): 4 Quality: tightness, aching Consistency: constant Improves With: nothing Worsens With: nothing Context: other (Patient does have history of similar symptoms) Anginal Symptoms: nausea, diaphoresis, dyspnea Other Symptoms: palpitations (Sharp pain left side of chest) Treatments Prior to Arrival: none - Related Data Home Medications Medication Instructions Recorded Confirmed Hydrocodone/Acetaminophen [[place] 1 tab PO TID 12/29/13 12/22/18 10-325] Donepezil [Aricept] 20 mg PO HS 12/10/15 12/22/18 Famotidine 20 mg PO BID 12/10/15 12/22/18 Allopurinol [Zyloprim] 300 mg PO DAILY 09/26/18 12/22/18 Citalopram Hydrobromide [CeleXA] 10 mg PO DAILY 09/26/18 12/22/18 Memantine [Namenda] 10 mg PO BID 09/26/18 12/22/18 clonazePAM [KlonoPIN] 1 mg PO TID 09/26/18 12/22/18 Previous Rx's Medication Instructions Recorded Hydrocortisone Suppository 25 mg RECTAL DAILY #20 supp 12/25/18 [Anusol-Hc] amLODIPine [Norvasc] 10 mg PO HS #30 tab 12/25/18 Allergies Allergy/AdvReac Type Severity Reaction Status Date / Time venom-honey bee Allergy Anaphylaxis Verified 12/22/18 18:52 [bee venom (honey bee)] Review of Systems ROS Statement: Those systems with pertinent positive or pertinent negative responses have been documented in the HPI. ROS Other: All systems not noted in ROS Statement are negative. EKG Findings - EKG Comments: EKG Findings:: EKG shows sinus rhythm rate of 60, OR 160, QRS 82, QTC 444 Past Medical History Past Medical History: Asthma, Chest Pain / Angina, Dementia, GERD/Reflux, GI Bleed, Hypertension, Memory Impairment, Seizure Disorder Additional Past Medical History / Comment(s): Nonepileptic seizures with last one being 12/17/18, small hiatal hernia, chronic low back pain, migraines, lower and upper GI bleeds, hemorrhoids, JILLIAN with Cpap History of Any Multi-Drug Resistant Organisms: None Reported Past Surgical History: No Surgical Hx Reported Additional Past Surgical History / Comment(s): EGD, colonoscopy, bilateral myringotomies/tubes, vasectomy Past Anesthesia/Blood Transfusion Reactions: No Reported Reaction, Motion Sickness Additional Past Anesthesia/Blood Transfusion Reaction / Comment(s): Pt has clausterphobia Past Psychological History: Anxiety Smoking Status: Light tobacco smoker Past Alcohol Use History: None Reported Past Drug Use History: None Reported - Past Family History Mother Family Medical History: CVA/TIA, Myocardial Infarction ([place]) Additional Family Medical History / Comment(s): Mother is . Father Family Medical History: Coronary Artery Disease (CAD) Additional Family Medical History / Comment(s): Father is living. He has a pacemaker and has had CABG General Exam Limitations: no limitations General appearance: alert, in no apparent distress Head exam: Present: atraumatic, normocephalic, normal inspection Eye exam: Present: normal appearance, PERRL, EOMI. Absent: scleral icterus, conjunctival injection, periorbital swelling ENT exam: Present: normal exam, mucous membranes moist Neck exam: Present: normal inspection. Absent: tenderness, meningismus, lymphadenopathy Respiratory exam: Present: normal lung sounds bilaterally. Absent: respiratory distress, wheezes, rales, rhonchi, stridor Cardiovascular Exam: Present: regular rate, normal rhythm, normal heart sounds. Absent: systolic murmur, diastolic murmur, rubs, gallop, clicks GI/Abdominal exam: Present: soft, normal bowel sounds. Absent: distended, tenderness, guarding, rebound, rigid Extremities exam: Present: normal inspection, full ROM, normal capillary refill. Absent: tenderness, pedal edema, joint swelling, calf tenderness Back exam: Present: normal inspection Neurological exam: Present: alert, oriented X3, CN II-XII intact Psychiatric exam: Present: normal affect, normal mood Skin exam: Present: warm, dry, intact, normal color. Absent: rash Course Vital Signs 07/01/19 07/01/19 16:42 18:33 Temperature 97.6 F Pulse Rate 66 58 L Respiratory 19 18 Rate Blood Pressure 148/79 159/94 O2 Sat by Pulse 99 98 Oximetry - Reevaluation(s) Reevaluation #1: 07/01/19 19:56 Medical records reviewed Reevaluation #2: 07/01/19 19:56 Patient is a poor historian history obtained from patient's daughter was at bedside. Reevaluation #3: 07/01/19 19:57 Patient with episodic chest pain no current chest pain - Consultations Consultation #1: spoke heydi SHARMA fer for admission Chest Pain MDM - MDM 54 male to the ED complains of evaluation patient is safe for evaluation regards to chest pain as well as high blood pressure. Patient will be admitted for chest pain observation and treatment Critical Care Time Critical Care Time: Yes Total Critical Care Time: 31 Disposition Clinical Impression: Chest pain Disposition: ADMITTED IP TO THIS HOSP Condition: Undetermined Is patient prescribed a controlled substance at d/c from ED?: No Referrals: Jerad Lucero MD [Primary Care Provider] - 1-2 days
[2019-07-01] MEDS ORDERED: ASPIRIN 81 MG PO STA (19:02)
--- NOTE | 2019-07-01 19:23 | XR ---
EXAMINATION TYPE: XR chest 2V DATE OF EXAM: 07/01/2019 COMPARISON: 12/22/2018 HISTORY: High blood pressure TECHNIQUE: Frontal and lateral views of the chest are obtained. FINDINGS: Heart and mediastinum are normal. Lungs are clear. Diaphragm is normal. Bony thorax appear s normal. There are chest leads. IMPRESSION: Normal chest. No change.
[2019-07-01] MEDS: SODIUM CHLORIDE 0.9% 1,000 ML IV SCH ×2 (19:34→19:36)
[2019-07-01 19:46] LABS: Basophils # (A) 0.1 k/uL (0-0.2); Basophils % (A) 1 %; Eosinophils # (A) 0.2 k/uL (0-0.7); Eosinophils % (A) 3 %; HCT 46.7 % (39.0-53.0); HGB 15.4 gm/dL (13.0-17.5); Lymphocytes # (A) 2.1 k/uL (1.0-4.8); Lymphocytes % (A) 35 %; MCH 30.2 pg (25.0-35.0); MCHC 32.9 g/dL (31.0-37.0); MCV 91.7 fL (80.0-100.0); Mean Platelet Volume 6.7; Monocytes # (A) 0.4 k/uL (0-1.0); Monocytes % (A) 6 %; Neutrophils # (A) 3.3 k/uL (1.3-7.7); Neutrophils % (A) 54 %; Platelet Count 243 k/uL (150-450); RBC 5.09 m/uL (4.30-5.90); RDW 13.3 % (11.5-15.5); WBC 6.2 k/uL (3.8-10.6)
[2019-07-01 19:55] LABS: INR 0.9 (<1.2)
[2019-07-01 20:02] LABS: ALT 32 U/L (21-72); AST 32 U/L (17-59); African American GFR (CKD) >90 (>60 ml/min/1.73 sqM); Albumin 4.6 g/dL (3.5-5.0); Alkaline Phosphatase 66 U/L (38-126); Anion Gap 9 mmol/L; Blood Urea Nitrogen 11 mg/dL (9-20); Calcium 9.6 mg/dL (8.4-10.2); Carbon Dioxide 27 mmol/L (22-30); Chloride 103 mmol/L (98-107); Glucose 90 mg/dL (74-99); Magnesium 1.9 mg/dL (1.6-2.3); Non-African American GFR(CKD) >90 (>60 ml/min/1.73 sqM); Potassium 4.7 mmol/L (3.5-5.1); Sodium 139 mmol/L (137-145); Total Bilirubin 0.6 mg/dL (0.2-1.3); Total Protein 7.3 g/dL (6.3-8.2)
[2019-07-01] MEDS ORDERED: ALBUTEROL NEBULIZED 2.5 MG/3 ML INHALATION PRN (22:11)
[2019-07-01] MEDS: DONEPEZIL 10 MG TAB PO SCH (23:13)
[2019-07-01] MEDS: HYDROcodone/APAP 10-325MG 1 EACH TAB PO SCH (23:13)
[2019-07-01] MEDS: clonazePAM 1 MG TAB PO SCH (23:13)
[2019-07-01] MEDS: MEMANTINE 10 MG TAB PO SCH (23:13)
[2019-07-01] MEDS: METOPROLOL TARTRATE 25 MG TAB PO SCH (23:14)
[2019-07-01] MEDS: FAMOTIDINE 20 MG TAB PO SCH (23:14)
[2019-07-02 07:47] LABS: Cholesterol 227 mg/dL (<200); HDL Cholesterol 49 mg/dL (40-60); LDL Cholesterol,Calculated 131 mg/dL (0-99); Triglycerides 236 mg/dL (<150)
[2019-07-02] MEDS ORDERED: amLODIPine 10 MG TAB PO SCH (09:00)
[2019-07-02] MEDS ORDERED: ASPIRIN 325 MG TAB PO SCH (09:00)
--- NOTE | 2019-07-02 09:47 | P.CRDCN ---
History of Present Illness History of present illness: This is Dr. Marquez dictating a consult on this patient The patient was interviewed and examined by me IMPRESSION / ASSESSMENT: Uncontrolled hypertension Atypical chest discomfort with 3 normal cardiac enzymes and normal 12-lead ECG serially Dyslipidemia with elevated triglyceride elevated total cholesterol and elevated LDL Normal potassium PLAN: Hypertension management His blood pressure fluctuates between normal as well as high I would split the dose of amlodipine to 5 mg twice daily and add losartan 25 mg twice daily Continue observation on telemetry If his blood pressure is well controlled by tomorrow and he may go home Cortisol level check HPI patient is noted that his blood pressures has been elevated at home despite amlodipine 10 mg by mouth daily. His systolic blood pressures are usually in the 160s and diastolics May go above 100 mmHg He also complains of recurrent chest discomfort weakness lightheadedness He was seen by Dr. Warren Lucero and then referred to the hospital He has not had any evidence for acute myocardial injury Denies diabetes ROS: No fever chills or rigors, no cough, phlegm or expectoration, no nausea, vomiting or diarrhea, no hematuria, dysuria, no musculoskeletal complaints, no strokes or seizures, no skin lesions. EXAMINATION: Blood pressure trends were reviewed Afebrile normal heart rates Breath sounds are clear no rhonchi no crackles Abdomen soft nontender No JVD carotid bruits thyromegaly REVIEW OF LABS, ECG & MEDICAL DATA labs are reviewed at lites are normal BUN 11 creatinine 0.85 normal liver functions Triglycerides 236, LDL 131, total cholesterol 227, HDL 49 Past Medical History Past Medical History: Asthma, Chest Pain / Angina, Dementia, GERD/Reflux, GI Bleed, Hypertension, Memory Impairment, Seizure Disorder Additional Past Medical History / Comment(s): Nonepileptic seizures with last one being 12/17/18, small hiatal hernia, chronic low back pain, migraines, lower and upper GI bleeds, hemorrhoids, JILLIAN with Cpap History of Any Multi-Drug Resistant Organisms: None Reported Past Surgical History: No Surgical Hx Reported Additional Past Surgical History / Comment(s): EGD, colonoscopy, bilateral myringotomies/tubes, vasectomy Past Anesthesia/Blood Transfusion Reactions: No Reported Reaction, Motion Sickness Additional Past Anesthesia/Blood Transfusion Reaction / Comment(s): Pt has clausterphobia Past Psychological History: Anxiety Additional Psychological History / Comment(s): Pt resides with his mingoWei, who is his caregiver. Pt uses a cane or walker to ambulate. He no longer drives, mingo takes him to appts. He has dementia/memory issues. Smoking Status: Former smoker Past Alcohol Use History: None Reported Additional Past Alcohol Use History / Comment(s): Pt states he rarely will smoke a cigar. Past Drug Use History: None Reported - Past Family History Mother Family Medical History: CVA/TIA, Myocardial Infarction ([place]) Additional Family Medical History / Comment(s): Mother is . Father Family Medical History: Coronary Artery Disease (CAD) Additional Family Medical History / Comment(s): Father is living. He has a pacemaker and has had CABG Medications and Allergies Home Medications Medication Instructions Recorded Confirmed Type Hydrocodone/Acetaminophen [[place] 1 tab PO TID 12/29/13 07/01/19 History 10-325] Donepezil [Aricept] 20 mg PO HS 12/10/15 07/01/19 History Famotidine 20 mg PO BID 12/10/15 07/01/19 History Allopurinol [Zyloprim] 300 mg PO DAILY 09/26/18 07/01/19 History Citalopram Hydrobromide [CeleXA] 10 mg PO DAILY 09/26/18 07/01/19 History Memantine [Namenda] 10 mg PO BID 09/26/18 07/01/19 History clonazePAM [KlonoPIN] 1 mg PO TID 09/26/18 07/01/19 History Albuterol Inhaler [Ventolin Hfa 2 puff INHALATION RT-Q6H PRN 07/01/19 07/01/19 History Inhaler] Levocetirizine Dihydrochloride 5 mg PO DAILY 07/01/19 07/01/19 History [Xyzal] amLODIPine [Norvasc] 10 mg PO DAILY 07/01/19 07/01/19 History Allergies Allergy/AdvReac Type Severity Reaction Status Date / Time venom-honey bee Allergy Anaphylaxis Verified 07/01/19 21:33 [bee venom (honey bee)] Physical Exam Vitals: Vital Signs Temp Pulse Pulse Resp BP BP Pulse Ox 07/02/19 07:10 97.5 F L 53 L 18 110/69 97 07/02/19 04:00 97.6 F 51 L 16 150/82 98 07/01/19 23:42 100 07/01/19 23:20 97.4 F L 62 18 128/75 99 07/01/19 20:49 97.4 F L 56 L 18 145/80 97 07/01/19 20:28 98 07/01/19 20:00 62 20 146/80 98 07/01/19 18:33 58 L 18 159/94 98 07/01/19 16:42 97.6 F 66 19 148/79 99 Intake and Output 07/01/19 07/02/19 07/02/19 22:59 06:59 14:59 Output Total 700 Balance -700 Output: Urine 700 Other: Voiding Method Toilet Toilet Toilet Weight 73.754 kg Results 07/01/19 19:02 07/01/19 19:02 Cardiac Enzymes 07/01/19 07/01/19 07/02/19 Range/Units 19:02 19:02 00:59 AST 32 (17-59) U/L Troponin I <0.012 <0.012 (0.000-0.034) ng/mL 07/02/19 Range/Units 07:21 AST (17-59) U/L Troponin I <0.012 (0.000-0.034) ng/mL Coagulation 07/01/19 Range/Units 19:02 PT 10.0 (9.0-12.0) sec APTT 24.0 (22.0-30.0) sec Lipids 07/02/19 Range/Units 07:21 Triglycerides 236 H (<150) mg/dL Cholesterol 227 H (<200) mg/dL HDL Cholesterol 49 (40-60) mg/dL CBC 07/01/19 Range/Units 19:02 WBC 6.2 (3.8-10.6) k/uL RBC 5.09 (4.30-5.90) m/uL Hgb 15.4 (13.0-17.5) gm/dL Hct 46.7 (39.0-53.0) % Plt Count 243 (150-450) k/uL Comprehensive Metabolic Panel 07/01/19 Range/Units 19:02 Sodium 139 (137-145) mmol/L Potassium 4.7 (3.5-5.1) mmol/L Chloride 103 (98-107) mmol/L Carbon Dioxide 27 (22-30) mmol/L BUN 11 (9-20) mg/dL Creatinine 0.85 (0.66-1.25) mg/dL Glucose 90 (74-99) mg/dL Calcium 9.6 (8.4-10.2) mg/dL AST 32 (17-59) U/L ALT 32 (21-72) U/L Alkaline Phosphatase 66 (38-126) U/L Total Protein 7.3 (6.3-8.2) g/dL Albumin 4.6 (3.5-5.0) g/dL Current Medications Generic Name Dose Route Start Last Admin Trade Name Freq PRN Reason Stop Dose Admin Hydrocodone Bitart/Acetaminophen 1 each 07/01/19 22:15 07/01/19 23:13 [place] 10 PO 1 each TID KAY Administration Albuterol Sulfate 2.5 mg 07/01/19 22:11 Ventolin Nebulized INHALATION RT-Q6H PRN Shortness Of Breath Allopurinol 300 mg 07/02/19 09:00 Zyloprim PO DAILY [facility] Amlodipine Besylate 5 mg 07/02/19 21:00 Norvasc PO BID [facility] Aspirin 81 mg 07/03/19 09:00 Aspirin PO DAILY [facility] Citalopram Hydrobromide 10 mg 07/02/19 09:00 Celexa PO DAILY [facility] Clonazepam 1 mg 07/01/19 22:15 07/01/19 23:13 Klonopin PO 1 mg TID KAY Administration Donepezil HCl 20 mg 07/01/19 22:15 07/01/19 23:13 Aricept PO 20 mg HS KAY Administration Famotidine 20 mg 07/01/19 22:15 07/01/19 23:14 Pepcid PO 20 mg BID KAY Administration Loratadine 10 mg 07/02/19 09:00 Claritin PO DAILY [facility] Losartan Potassium 25 mg 07/02/19 21:00 Cozaar PO BID [facility] Memantine 10 mg 07/01/19 22:15 07/01/19 23:13 Namenda PO 10 mg BID KAY Administration Nitroglycerin 0.4 mg 07/01/19 19:02 Nitrostat SUBLINGUAL Q5M PRN Chest Pain Intake and Output 07/01/19 07/02/19 07/02/19 22:59 06:59 14:59 Output Total 700 Balance -700 Output: Urine 700 Other: Voiding Method Toilet Toilet Toilet Weight 73.754 kg 07/01/19 19:02 07/01/19 19:02
[2019-07-02] MEDS: METOPROLOL TARTRATE 25 MG TAB PO SCH (10:17)
[2019-07-02] MEDS: clonazePAM 1 MG TAB PO SCH ×3 (11:04→19:48)
[2019-07-02] MEDS: HYDROcodone/APAP 10-325MG 1 EACH TAB PO SCH ×3 (11:04→22:12)
[2019-07-02] MEDS: FAMOTIDINE 20 MG TAB PO SCH ×2 (11:04→19:48)
[2019-07-02] MEDS: LORATADINE 10 MG TAB PO SCH (11:04)
[2019-07-02] MEDS: ALLOPURINOL 300 MG TAB PO SCH (11:05)
[2019-07-02] MEDS: MEMANTINE 10 MG TAB PO SCH ×2 (11:05→19:48)
[2019-07-02] MEDS: CITALOPRAM HYDROBROMIDE 10 MG TAB PO SCH (11:05)
[2019-07-02] MEDS: LOSARTAN 25 MG TAB PO SCH (19:48)
[2019-07-02] MEDS: amLODIPine 5 MG TAB PO SCH (19:48)
[2019-07-02] MEDS: DONEPEZIL 10 MG TAB PO SCH (19:48)
--- NOTE | 2019-07-02 23:24 | P.HPIM ---
History of Present Illness H&P Date: 07/02/19 Chief Complaint: Chest discomfort Mr. Jordan is a 54-year-old male with a past medical history of dementia, GERD, hypertension, seizure disorder, chronic low back pain, migraine headaches, obstructive sleep apnea coming into the hospital with a chief complaint of chest pain, weakness and lightheadedness. Patient states that he follows with Dr. Jerad Lucero, and then he was referred to the hospital for elevated blood pressure. Patient denies having any headaches, blurring of vision. No nausea vomiting or diaphoresis. No weakness of his extremities. No swelling of his lower extremities. No blood in the urine. Patient is a poor historian due to history of dementia and seizure disorder. He states that there is a family history of dementia, his mother at a young age because of dementia. In the ER, patient's blood pressure was elevated. He had blood work done with a normal CBC and electrolytes. Troponins have been less than 0.0123. Patient is admitted for further management. Review of Systems REVIEW OF SYSTEMS: PSYCH: no anxiety or depression NEURO:No c/o weakness of the extremties, No facial droop, No speech abnormalities. VASCULAR: no edema HEMATOLOGIC: No history of easy bleeding and bruising . No recent infections . RESPIRATORY: No cough, No SOB, No chest discomfort. IMMUNE: No infections INTEGUMENT: no rashes OPHTHALMOLOGIC: No blurry vision and no eye discharge : No dysuria or hematuria CARDIAC: No shortness of breath , paroxysmal nocturnal dyspnea MUSCULOSKELETAL : No Aches or pains in the joints or muscles. GI: No abdominal pain, Nausea or vomiting. No constipation or diarrhea. Past Medical History Past Medical History: Asthma, Chest Pain / Angina, Dementia, GERD/Reflux, GI Bleed, Hypertension, Memory Impairment, Seizure Disorder Additional Past Medical History / Comment(s): Nonepileptic seizures with last one being 12/17/18, small hiatal hernia, chronic low back pain, migraines, lower and upper GI bleeds, hemorrhoids, JILLIAN with Cpap History of Any Multi-Drug Resistant Organisms: None Reported Past Surgical History: No Surgical Hx Reported Additional Past Surgical History / Comment(s): EGD, colonoscopy, bilateral myringotomies/tubes, vasectomy Past Anesthesia/Blood Transfusion Reactions: No Reported Reaction, Motion Sickness Additional Past Anesthesia/Blood Transfusion Reaction / Comment(s): Pt has clausterphobia Past Psychological History: Anxiety Additional Psychological History / Comment(s): Pt resides with his mingo, Wei, who is his caregiver. Pt uses a cane or walker to ambulate. He no longer drives, mingo takes him to appts. He has dementia/memory issues. Smoking Status: Former smoker Past Alcohol Use History: None Reported Additional Past Alcohol Use History / Comment(s): Pt states he rarely will smoke a cigar. Past Drug Use History: None Reported - Past Family History Mother Family Medical History: CVA/TIA, Myocardial Infarction ([place]) Additional Family Medical History / Comment(s): Mother is . Father Family Medical History: Coronary Artery Disease (CAD) Additional Family Medical History / Comment(s): Father is living. He has a pacemaker and has had CABG Medications and Allergies Home Medications Medication Instructions Recorded Confirmed Type Hydrocodone/Acetaminophen [[place] 1 tab PO TID 12/29/13 07/01/19 History 10-325] Donepezil [Aricept] 20 mg PO HS 12/10/15 07/01/19 History Famotidine 20 mg PO BID 12/10/15 07/01/19 History Allopurinol [Zyloprim] 300 mg PO DAILY 09/26/18 07/01/19 History Citalopram Hydrobromide [CeleXA] 10 mg PO DAILY 09/26/18 07/01/19 History Memantine [Namenda] 10 mg PO BID 09/26/18 07/01/19 History clonazePAM [KlonoPIN] 1 mg PO TID 09/26/18 07/01/19 History Albuterol Inhaler [Ventolin Hfa 2 puff INHALATION RT-Q6H PRN 07/01/19 07/01/19 History Inhaler] Levocetirizine Dihydrochloride 5 mg PO DAILY 07/01/19 07/01/19 History [Xyzal] amLODIPine [Norvasc] 10 mg PO DAILY 07/01/19 07/01/19 History Allergies Allergy/AdvReac Type Severity Reaction Status Date / Time venom-honey bee Allergy Anaphylaxis Verified 07/01/19 21:33 [bee venom (honey bee)] Physical Exam Vitals: Vital Signs Temp Pulse Pulse Resp BP BP Pulse Ox 07/02/19 16:00 98.0 F 80 18 134/76 98 07/02/19 11:37 97.8 F 73 111/69 97 07/02/19 07:10 97.5 F L 53 L 18 110/69 97 07/02/19 04:00 97.6 F 51 L 16 150/82 98 07/01/19 23:42 100 07/01/19 23:20 97.4 F L 62 18 128/75 99 07/01/19 20:49 97.4 F L 56 L 18 145/80 97 07/01/19 20:28 98 07/01/19 20:00 62 20 146/80 98 07/01/19 18:33 58 L 18 159/94 98 Intake and Output 07/02/19 07/02/19 07/02/19 06:59 14:59 22:59 Intake Total 200 Output Total 700 Balance -700 200 Intake: Other 200 Output: Urine 700 Other: Voiding Method Toilet Toilet GEN. APPEARANCE: alert, in no apparent distress HEAD EXAM: atraumatic, normocephalic, normal inspection EYE EXAM: normal appearance, PERRL, EOMI. no pallor, no icterus ENT EXAM: normal exam, mucous membranes moist NECK EXAM: normal inspection. no thyromegaly or lymphadenopathy RESPIRATORY EXAM: normal lung sounds bilaterally. No wheezing or crackles CARDIOVASCULAR EXAM: regular rate, normal rhythm, normal heart sounds. GI/ABDOMINAL EXAM: soft, normal bowel sounds. no tenderness guarding, rebound or rigidity EXTREMITIES EXAM: no pedal edema NEUROLOGICAL EXAM: alert, oriented X3, no focal deficits PSYCHIATRIC EXAM: normal affect, normal mood SKIN EXAM: no rash Results CBC & Chem 7: 07/01/19 19:02 07/01/19 19:02 Labs: Abnormal Lab Results - Last 24 Hours (Table) 07/02/19 Range/Units 07:21 Triglycerides 236 H (<150) mg/dL Cholesterol 227 H (<200) mg/dL LDL Cholesterol, Calc 131 H (0-99) mg/dL Thrombosis Risk Factor Assmnt - Choose All That Apply Any of the Below Risk Factors Present?: Yes Each Factor Represents 1 point: Age 41-60 years, Obesity (BMI >25) Other Risk Factors: No Other congenital or acquired thrombophilia - If yes, enter type in comment: No Thrombosis Risk Factor Assessment Total Risk Factor Score: 2 Thrombosis Risk Factor Assessment Level: Low Risk Assessment and Plan Assessment: ASSESSMENT Atypical chest pain Uncontrolled hypertension Dementia GERD Seizure disorder Migraine headaches Chronic low back pain History of upper and lower GI bleed Hemorrhoids Former smoker PLAN: Patient had serial troponins and EKGs that are within normal notes. Patient's blood pressure medications have been adjusted by cardiology. Patient is asymptomatic currently. He has been restarted on his home medications. Further recommendations to follow depending on the progress of the patient.
[2019-07-03] MEDS ORDERED: ACETAMINOPHEN TAB 325 MG TAB PO PRN (03:16)
[2019-07-03] MEDS: NITROGLYCERIN SL TABS 0.4 MG TAB SUBLINGUAL PRN ×3 (03:24→23:15)
[2019-07-03] MEDS: LOSARTAN 25 MG TAB PO SCH ×2 (08:51→19:49)
[2019-07-03] MEDS: ASPIRIN 81 MG PO SCH (08:51)
[2019-07-03] MEDS: LORATADINE 10 MG TAB PO SCH (08:51)
[2019-07-03] MEDS: ALLOPURINOL 300 MG TAB PO SCH (08:51)
[2019-07-03] MEDS: CITALOPRAM HYDROBROMIDE 10 MG TAB PO SCH (08:51)
[2019-07-03] MEDS: clonazePAM 1 MG TAB PO SCH ×3 (08:51→19:50)
[2019-07-03] MEDS: FAMOTIDINE 20 MG TAB PO SCH ×2 (08:51→19:49)
[2019-07-03] MEDS: amLODIPine 5 MG TAB PO SCH ×2 (08:51→19:48)
[2019-07-03] MEDS: MEMANTINE 10 MG TAB PO SCH ×2 (08:51→19:49)
[2019-07-03] MEDS: ATORVASTATIN 20 MG TAB PO SCH (08:52)
[2019-07-03] MEDS: HYDROcodone/APAP 10-325MG 1 EACH TAB PO SCH ×3 (08:52→19:49)
--- NOTE | 2019-07-03 09:11 | P.PN ---
Subjective Patient's blood pressure is much better controlled on amlodipine 5 mg twice daily and losartan 25 mg twice daily Blood pressure 119/77 with of his mercury pulse rate in the 60s afebrile 97.4F He also has dyslipidemia with an LDL of 1 31 mg/dL and was started on atorvastatin 20 mg by mouth daily and she should continue Last night he had midsternal chest discomfort that was reviewed with sublingual nitroglycerin On examination his breath sounds are clear no rhonchi no crackles Normal heart sounds normal S1 normal S2 Abdomen soft nontender Extremity is warm No edema Impression Midsternal chest discomfort last evening relieved with sublingual nitroglycerin Essential hypertension Dyslipidemia Suggest Continue combination of amlodipine and losartan in split doses Continue atorvastatin Division stress echo tomorrow If normal then Follow-up with Dr. Marquez/Maryjane Hurd within a week Objective - Vital Signs Vital signs: Vital Signs Temp 97.4 F L 07/03/19 07:29 Pulse 63 07/03/19 07:29 Resp 17 07/03/19 07:29 BP 119/77 07/03/19 07:29 Pulse Ox 98 07/03/19 07:42 Intake & Output 07/02/19 07/03/19 07/03/19 18:59 06:59 18:59 Intake Total 200 Balance 200 Intake: Other 200 Other: Voiding Method Toilet Toilet # Voids 1 - Labs CBC & Chem 7: 07/01/19 19:02 07/01/19 19:02
--- NOTE | 2019-07-03 15:05 | P.PN ---
Subjective Progress Note Date: 07/03/19 Principal diagnosis: Chest pain, uncontrolled hypertension Mr. Jordan is a 54-year-old male with a past medical history of dementia, GERD, hypertension, seizure disorder, chronic low back pain, migraine headaches, obstructive sleep apnea coming into the hospital with a chief complaint of chest pain, weakness and lightheadedness. Patient states that he follows with Dr. Juanita uLcero, and then he was referred to the hospital for elevated blood pressure. Patient denies having any headaches, blurring of vision. No nausea vomiting or diaphoresis. No weakness of his extremities. No swelling of his lower extremities. No blood in the urine. Patient is a poor historian due to history of dementia and seizure disorder. He states that there is a family history of dementia, his mother at a young age because of dementia. In the ER, patient's blood pressure was elevated. He had blood work done with a normal CBC and electrolytes. Troponins have been less than 0.0123. On 07/03/2019 - patient states that last night he had severe substernal chest pain. He said he was using his CPAP machine and then he felt that his head was hurting, then he started to have chest heaviness along with mild shortness of breath. Patient was given a dose of nitroglycerin and his chest pain was resolved. Patient denies having any fevers chills or rigors. No cough or if clinically indicated breathing now. No abdominal pain nausea vomiting or diarrhea. No dysuria or hematuria. Patient had 3 sets of troponins less than 0.012. Patient's Medications Have Been Reviewed. Active Medications Acetaminophen (Tylenol Tab) 650 mg PO Q4HR PRN PRN Reason: Fever and/ or Pain Last Admin: 07/03/19 03:19 Dose: 650 mg Documented by: Hydrocodone Bitart/Acetaminophen (Dafter 10) 1 each PO TID [facility] Last Admin: 07/03/19 08:52 Dose: 1 each Documented by: Albuterol Sulfate (Ventolin Nebulized) 2.5 mg INHALATION RT-Q6H PRN PRN Reason: Shortness Of Breath Allopurinol (Zyloprim) 300 mg PO DAILY [facility] Last Admin: 07/03/19 08:51 Dose: 300 mg Documented by: Amlodipine Besylate (Norvasc) 5 mg PO BID [facility] Last Admin: 12/08/19 08:51 Dose: 5 mg Documented by: Aspirin (Aspirin) 81 mg PO DAILY [facility] Last Admin: 07/03/19 08:51 Dose: 81 mg Documented by: Atorvastatin Calcium (Lipitor) 20 mg PO DAILY [facility] Last Admin: 07/03/19 08:52 Dose: 20 mg Documented by: Citalopram Hydrobromide (Celexa) 10 mg PO DAILY [facility] Last Admin: 07/03/19 08:51 Dose: 10 mg Documented by: Clonazepam (Klonopin) 1 mg PO TID [facility] Last Admin: 07/03/19 08:51 Dose: 1 mg Documented by: Donepezil HCl (Aricept) 20 mg PO HS [facility] Last Admin: 07/02/19 19:48 Dose: 20 mg Documented by: Famotidine (Pepcid) 20 mg PO BID [facility] Last Admin: 07/03/19 08:51 Dose: 20 mg Documented by: Dobutamine HCl/Dextrose 500 mg (/ IV Solution) 250 mls @ 22.126 mls/hr IV .Q11 H18M ONE; Protocol Stop: 07/04/19 18:17 Loratadine (Claritin) 10 mg PO DAILY [facility] Last Admin: 07/03/19 08:51 Dose: 10 mg Documented by: Losartan Potassium (Cozaar) 25 mg PO BID [facility] Last Admin: 07/03/19 08:51 Dose: 25 mg Documented by: Memantine (Namenda) 10 mg PO BID [facility] Last Admin: 07/03/19 08:51 Dose: 10 mg Documented by: Nitroglycerin (Nitrostat) 0.4 mg SUBLINGUAL Q5M PRN PRN Reason: Chest Pain Last Admin: 07/03/19 03:24 Dose: 0.4 mg Documented by: Objective - Vital Signs Vital signs: Vital Signs Temp 97.6 F 07/03/19 12:00 Pulse 64 07/03/19 12:00 Resp 17 07/03/19 12:00 BP 135/77 07/03/19 12:00 Pulse Ox 97 07/03/19 12:00 Intake & Output 07/02/19 07/03/19 07/03/19 18:59 06:59 18:59 Intake Total 200 Balance 200 Intake: Other 200 Other: Voiding Method Toilet Toilet Toilet # Voids 1 1 - Exam GEN. APPEARANCE: alert, in no apparent distress HEENT: Normocephalic. No pallor. No icterus. RESPIRATORY EXAM: normal lung sounds bilaterally. No wheezing or crackles CARDIOVASCULAR EXAM: regular rate, normal rhythm, normal heart sounds. GI/ABDOMINAL EXAM: soft, normal bowel sounds. no tenderness guarding, rebound or rigidity EXTREMITIES EXAM: no pedal edema NEUROLOGICAL EXAM: alert, oriented X3, no focal deficits PSYCHIATRIC EXAM: normal affect, normal mood SKIN EXAM: no rash - Labs CBC & Chem 7: 07/01/19 19:02 07/01/19 19:02 Assessment and Plan Assessment: ASSESSMENT Atypical chest pain Uncontrolled hypertension Dementia GERD Seizure disorder Migraine headaches Chronic low back pain History of upper and lower GI bleed Hemorrhoids Former smoker PLAN: Patient's blood pressure under much better control now. Patient had an episode of chest pain last night that was relieved with sublingual nitroglycerin. He is scheduled for a cardiac stress test tomorrow. Continue with the current medication regimen. Further recommendations depending on the progress of the patient.
[2019-07-03 19:13] VITALS: RESP 18
[2019-07-03] MEDS: DONEPEZIL 10 MG TAB PO SCH (19:49)
[2019-07-04] MEDS ORDERED: DOBUTamine DRIP for NUC MED 500 MG in DEXTROSE/WATER 1 250ML.BAG IV ONE (07:00)
--- NOTE | 2019-07-04 11:38 | P.PN ---
Subjective This is a pleasant 54-year-old male past medical history significant for hypertension and dyslipidemia. He states he did have chest discomfort last evening while laying in bed that was relieved by nitroglycerin. Since that time he has had no further symptoms of chest pain. He denies shortness of breath, dizziness or palpitations. Blood pressure 115/77 heart rate 69 afebrile and maintaining oxygen saturation on room air. Currently maintained on amlodipine 5 mg BID, aspirin 81 mg daily, atorvastatin 20 mg daily and losartan 25 mg BID. GENERAL: Well-appearing, well-nourished and in no acute distress. NECK: Supple without JVD or thyromegaly. LUNGS: Breath sounds clear to auscultation bilaterally. Respiration equal and unlabored. No wheezes, rales or rhonchi. HEART: Regular rate and rhythm without murmurs, rubs or gallops. S1 and S2 heard. EXTREMITIES: Normal range of motion, no edema. No clubbing or cyanosis. Peripheral pulses intact. ASSESSMENT Precordial chest pain, acute event has been ruled out. Hypertension Dyslipidemia, LDL 131 Seizure disorder Dementia PLAN Blood pressure is well controlled on current regimen. Proceed with dobutamine stress echo as previously ordered. If normal he is stable for discharge from a cardiac perspective. Follow up in the office with Dr. Marquez upon discharge. Nurse Practitioner note has been reviewed, I agree with a documented findings and plan of care. Patient was seen and examined. Objective - Vital Signs Vital signs: Vital Signs Temp 97.4 F L 07/04/19 11:07 Pulse 69 07/04/19 11:07 Resp 18 07/04/19 11:07 BP 115/77 07/04/19 11:07 Pulse Ox 97 07/04/19 11:07 Intake & Output 07/03/19 07/04/19 07/04/19 18:59 06:59 18:59 Other: Voiding Method Toilet Toilet Toilet # Voids 1 1 1 - Labs CBC & Chem 7: 07/01/19 19:02 07/01/19 19:02
[2019-07-04] MEDS: LORATADINE 10 MG TAB PO SCH (12:11)
[2019-07-04] MEDS: amLODIPine 5 MG TAB PO SCH (12:11)
[2019-07-04] MEDS: ASPIRIN 81 MG PO SCH (12:11)
[2019-07-04] MEDS: FAMOTIDINE 20 MG TAB PO SCH (12:11)
[2019-07-04] MEDS: LOSARTAN 25 MG TAB PO SCH (12:11)
[2019-07-04] MEDS: HYDROcodone/APAP 10-325MG 1 EACH TAB PO SCH ×2 (12:12→17:10)
[2019-07-04] MEDS: ATORVASTATIN 20 MG TAB PO SCH (12:12)
[2019-07-04] MEDS: clonazePAM 1 MG TAB PO SCH ×2 (12:12→17:10)
[2019-07-04] MEDS: MEMANTINE 10 MG TAB PO SCH (12:13)
[2019-07-04] MEDS: CITALOPRAM HYDROBROMIDE 10 MG TAB PO SCH (12:13)
[2019-07-04] MEDS: ALLOPURINOL 300 MG TAB PO SCH (12:13)
--- NOTE | 2019-07-04 15:37 | ECHOS ---
STRESS ECHOCARDIOGRAM MEDICATIONS: BASELINE HEART RATE: 64 BASELINE BLOOD PRESSURE: 133/74 MAXIMUM HEART RATE: 152 MAXIMUM BLOOD PRESSURE: 176/59 85% MPHR: 141 100% MPHR: 166 METS: MAXIMUM STAGE REACHED: TOTAL EXERCISE TIME: INDICATIONS: Chest pain. CLINICAL INFORMATION: STRESS DATA: Heart rate is 64, pressure is 133/74 mmHg. Baseline EKG showed sinus mechanism. Dobutamine infusion at a dose of 10 mcg/kg per minute was initiated and increased to 30 mcg/kg per minute per protocol. Max heart rate was 152 which is about 91% of maximum predicted heart rate. Maximum blood pressure was 179/59 mmHg. Clinically, the patient max heart rate was 152 which is about 91% of maximum predicted heart rate. Clinically the patient did not have any symptoms and the EKG did not show any significant ST or T-wave abnormalities concerning for ischemia. ECHOCARDIOGRAM IMAGES: Echocardiogram images from parasternal long axis view, parasternal short axis view, apical 4 chamber and apical 2 chamber were obtained as the baseline images, at the peak of the heart rate as well as on recovery. The echocardiogram images did not show any evidence of obvious wall motion abnormalities concerning for ischemia. CONCLUSION: 1. Normal EKG in response to dobutamine. 2. Normal echocardiogram in response to dobutamine. 3. Essentially normal dobutamine stress echocardiogram. MMODL / IJN: [id number] /
[2019-07-04 15:43] VITALS: BP 115/74; PULSE 70; TEMP 98.1
--- NOTE | 2019-07-05 11:51 | P.DS ---
Providers Date of admission: 07/03/19 11:18 Expected date of discharge: 07/04/19 Attending physician: Jerad Lucero Consults: 07/01/19 19:02 Consult Physician Urgent Consulting Provider: Sanjay Min Consult Reason/Comments: cp Do you want consulting provider notified?: Yes Primary care physician: Jerad Lucero Hospital Course: 54-year-old male was noted to the observation unit with complaints of chest pain and uncontrolled hypertension. Patient was evaluated by cardiology and stabilized. Patient had a negative stress test and was cleared by cardiology etiology for discharge Assessment Atypical chest pain negative stress test Uncontrolled hypertension Dementia progressive GERD Seizure disorder Migraine headaches Chronic low back pain History of upper lower GI bleed Hyperlipidemia Plan Follow-up with family physician Dr. Jerad Lucero and cardiology Patient Condition at Discharge: Undetermined Plan - Discharge Summary New Discharge Prescriptions: New Aspirin 81 mg PO DAILY chew Losartan [Cozaar] 25 mg PO BID tab Atorvastatin [Lipitor] 20 mg PO DAILY #30 tab Nitroglycerin Sl Tabs [Nitrostat] 0.4 mg SUBLINGUAL Q5M PRN tab PRN Reason: Chest Pain amLODIPine [Norvasc] 5 mg PO BID #60 tab Continue Hydrocodone/Acetaminophen [[place] 10-325] 1 tab PO TID Famotidine 20 mg PO BID Donepezil [Aricept] 20 mg PO HS clonazePAM [KlonoPIN] 1 mg PO TID Memantine [Namenda] 10 mg PO BID Citalopram Hydrobromide [CeleXA] 10 mg PO DAILY Allopurinol [Zyloprim] 300 mg PO DAILY Levocetirizine Dihydrochloride [Xyzal] 5 mg PO DAILY Albuterol Inhaler [Ventolin Hfa Inhaler] 2 puff INHALATION RT-Q6H PRN PRN Reason: Shortness Of Breath Discontinued amLODIPine [Norvasc] 10 mg PO DAILY Discharge Medication List Hydrocodone/Acetaminophen [[place] 10-325] 1 tab PO TID 12/29/13 [History] Donepezil [Aricept] 20 mg PO HS 12/10/15 [History] Famotidine 20 mg PO BID 12/10/15 [History] Allopurinol [Zyloprim] 300 mg PO DAILY 09/26/18 [History] Citalopram Hydrobromide [CeleXA] 10 mg PO DAILY 09/26/18 [History] Memantine [Namenda] 10 mg PO BID 09/26/18 [History] clonazePAM [KlonoPIN] 1 mg PO TID 09/26/18 [History] Albuterol Inhaler [Ventolin Hfa Inhaler] 2 puff INHALATION RT-Q6H PRN 07/01/19 [History] Levocetirizine Dihydrochloride [Xyzal] 5 mg PO DAILY 07/01/19 [History] Aspirin 81 mg PO DAILY chew 07/04/19 [Rx] Atorvastatin [Lipitor] 20 mg PO DAILY #30 tab 07/04/19 [Rx] Losartan [Cozaar] 25 mg PO BID tab 07/04/19 [Rx] Nitroglycerin Sl Tabs [Nitrostat] 0.4 mg SUBLINGUAL Q5M PRN tab 07/04/19 [Rx] amLODIPine [Norvasc] 5 mg PO BID #60 tab 07/04/19 [Rx] Follow up Appointment(s)/Referral(s): Jerad Lucero MD [Primary Care Provider] - 1-2 days Chris Marquez MD [STAFF PHYSICIAN] - 1 Week (Follow-up with Dr. Marquez/Maryjane Hurd 9 AM on July 07) Discharge Disposition: HOME SELF-CARE
== END 2019-07-04 17:10 | disposition home or self-care (01) | DRG 313 ==
LOC: EC 15:44 → 1SOBS 19:05 → OBSVTOIN 07-03 11:18
PROVIDERS: ADMIT Family Medicine; ATTEND Family Medicine
DX: R07.89 Other chest pain (principal); R56.9 Unspecified convulsions; F03.90 Unspecified dementia, unspecified severity, without behavioral disturbance, psychotic disturbance, mood disturbance, and anxiety; E78.5 Hyperlipidemia, unspecified; F17.200 Nicotine dependence, unspecified, uncomplicated; G43.909 Migraine, unspecified, not intractable, without status migrainosus; G89.29 Other chronic pain; I10 Essential (primary) hypertension; J45.909 Unspecified asthma, uncomplicated; K21.9 Gastro-esophageal reflux disease without esophagitis; K64.9 Unspecified hemorrhoids; F41.9 Anxiety disorder, unspecified; G47.33 Obstructive sleep apnea (adult) (pediatric); K44.9 Diaphragmatic hernia without obstruction or gangrene; M54.5 Low back pain; Z79.899 Other long term (current) drug therapy; Z79.891 Long term (current) use of opiate analgesic; Z91.030 Bee allergy status; Z82.0 Family history of epilepsy and other diseases of the nervous system; Z82.49 Family history of ischemic heart disease and other diseases of the circulatory system; Z82.3 Family history of stroke; Z95.1 Presence of aortocoronary bypass graft; Z95.0 Presence of cardiac pacemaker
CPT/HCPCS: 36415; 71046; 80053; 80061; 83690; 83735; 83880; 84484; 85025; 85610; 85730; 93005; 93351; 94640; 94660; 94760; 96360; 99285

== ENCOUNTER 2019-07-21 14:01 | Observation (INO) | payer MEDICARE, OTHER ==
[2019-07-21] MEDS ORDERED: SODIUM CHLORIDE 0.9% 1,000 ML IV STA (15:06)
[2019-07-21] MEDS ORDERED: MORPHINE SULFATE 4 MG/ML SYRINGE IV STA (15:08)
[2019-07-21] MEDS ORDERED: PANTOPRAZOLE 40 MG/10 ML VIAL IVP STA (15:08)
[2019-07-21] MEDS ORDERED: ONDANSETRON 4 MG/2 ML VIAL IVP STA (15:08)
--- NOTE | 2019-07-21 15:10 | ED ---
General Adult HPI - General Chief complaint: GI Bleed Stated complaint: Rectal bleeding Time Seen by Provider: 07/21/19 14:34 Source: patient, family, RN notes reviewed Mode of arrival: ambulatory Limitations: no limitations - History of Present Illness Initial comments: Patient is a pleasant 54-year-old male presenting to the emergency Department with complaints of rectal bleeding. Onset of symptoms was a couple of days ago. Patient is having episodes a couple times per day. Patient did have passing a flat us that turned out to be just blood however small amount. Patient has had some nausea and vomited once without blood. Patient has had decreased appetite. Patient does have mild discomfort throughout his abdomen. Patient does have history of similar symptoms a couple months ago diagnosed with diverticulitis. - Related Data Home Medications Medication Instructions Recorded Confirmed Hydrocodone/Acetaminophen [[place] 1 tab PO TID 12/29/13 07/01/19 10-325] Donepezil [Aricept] 20 mg PO HS 12/10/15 07/01/19 Famotidine 20 mg PO BID 12/10/15 07/01/19 Allopurinol [Zyloprim] 300 mg PO DAILY 09/26/18 07/01/19 Citalopram Hydrobromide [CeleXA] 10 mg PO DAILY 09/26/18 07/01/19 Memantine [Namenda] 10 mg PO BID 09/26/18 07/01/19 clonazePAM [KlonoPIN] 1 mg PO TID 09/26/18 07/01/19 Albuterol Inhaler [Ventolin Hfa 2 puff INHALATION RT-Q6H PRN 07/01/19 07/01/19 Inhaler] Levocetirizine Dihydrochloride 5 mg PO DAILY 07/01/19 07/01/19 [Xyzal] Previous Rx's Medication Instructions Recorded Aspirin 81 mg PO DAILY chew 07/04/19 Atorvastatin [Lipitor] 20 mg PO DAILY #30 tab 07/04/19 Losartan [Cozaar] 25 mg PO BID tab 07/04/19 Nitroglycerin Sl Tabs [Nitrostat] 0.4 mg SUBLINGUAL Q5M PRN tab 07/04/19 amLODIPine [Norvasc] 5 mg PO BID #60 tab 07/04/19 Allergies Allergy/AdvReac Type Severity Reaction Status Date / Time venom-honey bee Allergy Anaphylaxis Verified 07/21/19 14:10 [bee venom (honey bee)] Review of Systems ROS Statement: Those systems with pertinent positive or pertinent negative responses have been documented in the HPI. ROS Other: All systems not noted in ROS Statement are negative. Constitutional: Denies: fever Eyes: Denies: eye pain ENT: Denies: ear pain Respiratory: Denies: cough Cardiovascular: Denies: chest pain Endocrine: Reports: fatigue Gastrointestinal: Reports: abdominal pain, nausea, vomiting, hematochezia Genitourinary: Denies: dysuria Musculoskeletal: Denies: back pain Skin: Denies: rash Neurological: Denies: weakness Past Medical History Past Medical History: Asthma, Chest Pain / Angina, Dementia, GERD/Reflux, GI Bleed, Hypertension, Memory Impairment, Seizure Disorder Additional Past Medical History / Comment(s): Nonepileptic seizures with last one being 12/17/18, small hiatal hernia, chronic low back pain, migraines, lower and upper GI bleeds, hemorrhoids, JILLIAN with Cpap History of Any Multi-Drug Resistant Organisms: None Reported Past Surgical History: No Surgical Hx Reported Additional Past Surgical History / Comment(s): EGD, colonoscopy, bilateral myringotomies/tubes, vasectomy Past Anesthesia/Blood Transfusion Reactions: No Reported Reaction, Motion Sickness Additional Past Anesthesia/Blood Transfusion Reaction / Comment(s): Pt has clausterphobia Past Psychological History: Anxiety Smoking Status: Former smoker Past Alcohol Use History: Occasional Past Drug Use History: None Reported - Past Family History Mother Family Medical History: CVA/TIA, Myocardial Infarction (ID) Additional Family Medical History / Comment(s): Mother is . Father Family Medical History: Coronary Artery Disease (CAD) Additional Family Medical History / Comment(s): Father is living. He has a pacemaker and has had CABG General Exam Limitations: no limitations General appearance: alert, in no apparent distress Head exam: Present: normocephalic Eye exam: Present: normal appearance, PERRL ENT exam: Present: normal oropharynx Neck exam: Present: normal inspection Respiratory exam: Present: normal lung sounds bilaterally Cardiovascular Exam: Present: regular rate, normal rhythm Expanded Peripheral pulses: 2+: Dorsalis Pedis (R), Dorsalis Pedis (L) GI/Abdominal exam: Present: soft, tenderness (Mild diffuse tenderness, more so left lower quadrant), normal bowel sounds. Absent: distended, guarding, re bound, rigid, pulsatile mass Extremities exam: Present: normal inspection Neurological exam: Present: alert Psychiatric exam: Present: normal affect, normal mood Skin exam: Present: normal color Course Vital Signs 07/21/19 07/21/19 14:07 16:42 Temperature 97.5 F L Pulse Rate 79 70 Respiratory 16 16 Rate Blood Pressure 129/82 O2 Sat by Pulse 94 L 100 Oximetry Medical Decision Making - Medical Decision Making Patient reevaluated and resting comfortably in bed. Patient and family updated on results and plan. Case discussed in detail with Dr. Todd, who will admit covering for Dr. Lucero. GI will be placed on consult. - Lab Data Result diagrams: 07/21/19 15:26 07/21/19 15:26 Lab Results 07/21/19 07/21/19 07/21/19 Range/Units 15:26 15:26 15:26 WBC 10.2 (3.8-10.6) k/uL RBC 5.15 (4.30-5.90) m/uL Hgb 15.7 (13.0-17.5) gm/dL Hct 46.0 (39.0-53.0) % MCV 89.4 (80.0-100.0) fL MCH 30.6 (25.0-35.0) pg MCHC 34.2 (31.0-37.0) g/dL RDW 13.1 (11.5-15.5) % Plt Count 292 (150-450) k/uL Neutrophils % 48 % Lymphocytes % 40 % Monocytes % 6 % Eosinophils % 3 % Basophils % 1 % Neutrophils # 4.9 (1.3-7.7) k/uL Lymphocytes # 4.1 (1.0-4.8) k/uL Monocytes # 0.6 (0-1.0) k/uL Eosinophils # 0.3 (0-0.7) k/uL Basophils # 0.1 (0-0.2) k/uL PT 10.0 (9.0-12.0) sec INR 0.9 (<1.2) APTT 22.4 (22.0-30.0) sec Sodium 141 (137-145) mmol/L Potassium 3.5 (3.5-5.1) mmol/L Chloride 102 (98-107) mmol/L Carbon Dioxide 28 (22-30) mmol/L Anion Gap 11 mmol/L BUN 19 (9-20) mg/dL Creatinine 0.87 (0.66-1.25) mg/dL Est GFR (CKD-EPI)AfAm >90 (>60 ml/min/1.73 sqM) Est GFR (CKD-EPI)NonAf >90 (>60 ml/min/1.73 sqM) Glucose 65 L (74-99) mg/dL Calcium 9.9 (8.4-10.2) mg/dL Total Bilirubin 0.6 (0.2-1.3) mg/dL AST 32 (17-59) U/L ALT 26 (4-49) U/L Alkaline Phosphatase 75 (38-126) U/L Total Protein 7.8 (6.3-8.2) g/dL Albumin 5.0 (3.5-5.0) g/dL - Radiology Data Radiology results: report reviewed (Computed tomography scan abdomen pelvis shows no acute process) Disposition Clinical Impression: Lower gastrointestinal hemorrhage Disposition: ADMITTED IP TO THIS HOSP Is patient prescribed a controlled substance at d/c from ED?: No Referrals: Jerad Lucero MD [Primary Care Provider] - 1-2 days Decision Time: 17:00
[2019-07-21 15:45] LABS: Basophils # (A) 0.1 k/uL (0-0.2); Basophils % (A) 1 %; Eosinophils # (A) 0.3 k/uL (0-0.7); Eosinophils % (A) 3 %; HGB 15.7 gm/dL (13.0-17.5); Lymphocytes # (A) 4.1 k/uL (1.0-4.8); Lymphocytes % (A) 40 %; MCH 30.6 pg (25.0-35.0); MCHC 34.2 g/dL (31.0-37.0); MCV 89.4 fL (80.0-100.0); Mean Platelet Volume 7.7; Monocytes # (A) 0.6 k/uL (0-1.0); Monocytes % (A) 6 %; Neutrophils # (A) 4.9 k/uL (1.3-7.7); Neutrophils % (A) 48 %; Platelet Count 292 k/uL (150-450); RBC 5.15 m/uL (4.30-5.90); RDW 13.1 % (11.5-15.5); WBC 10.2 k/uL (3.8-10.6)
[2019-07-21 15:48] LABS: ALT 26 U/L (4-49); AST 32 U/L (17-59); African American GFR (CKD) >90 (>60 ml/min/1.73 sqM); Alkaline Phosphatase 75 U/L (38-126); Anion Gap 11 mmol/L; Blood Urea Nitrogen 19 mg/dL (9-20); Calcium 9.9 mg/dL (8.4-10.2); Carbon Dioxide 28 mmol/L (22-30); Chloride 102 mmol/L (98-107); Glucose 65 mg/dL (74-99); Non-African American GFR(CKD) >90 (>60 ml/min/1.73 sqM); Potassium 3.5 mmol/L (3.5-5.1); Sodium 141 mmol/L (137-145); Total Bilirubin 0.6 mg/dL (0.2-1.3); Total Protein 7.8 g/dL (6.3-8.2)
[2019-07-21 15:51] LABS: INR 0.9 (<1.2); Partial Thromboplastin Time 22.4 sec (22.0-30.0)
--- NOTE | 2019-07-21 16:44 | CT ---
EXAMINATION TYPE: CT abdomen pelvis w con DATE OF EXAM: 07/21/2019 COMPARISON: 06/21/2014 HISTORY: Blood in stool, abdominal pain CT DLP: 816 mGycm Automated exposure control for dose reduction was used. CONTRAST: Performed with IV Contrast, patient injected with 100 mL of Isovue 300. There is mild subsegmental atelectasis at the left lung base. Heart size is normal. Liver spleen panc reas gallbladder appear normal. Bile ducts are not dilated. Stomach appears normal. There is no adrenal mass. Kidneys show satisfactory contrast opacification. There is no hydronephrosi s. Ureters are not dilated. There is no retroperitoneal adenopathy. Bladder distends smoothly. There is no inguinal hernia. There is no free fluid in the pelvis. There are small inguinal lymph nodes. There is no evidence of a pelvic mass. Appendix appears normal. There is no mesenteric edema. There is no ascites or free air. There is no sign of a bowel obstructio n. Lumbar spine is intact. Bony pelvis is intact. IMPRESSION: Negative CT scan abdomen and pelvis. Normal appendix. I do not see a cause for abdominal pain. Mild subsegmental atelectasis left lung base is new compared to old exam.
[2019-07-21] MEDS ORDERED: NALOXONE 0.4 MG/ML 1 ML VIAL IV PRN (17:02)
[2019-07-21] MEDS ORDERED: ONDANSETRON 4 MG/2 ML VIAL IVP PRN (17:02)
[2019-07-21 22:52] LABS: Basophils # (A) 0.1 k/uL (0-0.2); Basophils % (A) 1 %; Eosinophils # (A) 0.2 k/uL (0-0.7); Eosinophils % (A) 2 %; HCT 46.1 % (39.0-53.0); HGB 14.9 gm/dL (13.0-17.5); Lymphocytes # (A) 3.5 k/uL (1.0-4.8); Lymphocytes % (A) 39 %; MCH 29.3 pg (25.0-35.0); MCHC 32.4 g/dL (31.0-37.0); MCV 90.6 fL (80.0-100.0); Mean Platelet Volume 7.4; Monocytes # (A) 0.5 k/uL (0-1.0); Monocytes % (A) 5 %; Neutrophils # (A) 4.6 k/uL (1.3-7.7); Neutrophils % (A) 51 %; Platelet Count 218 k/uL (150-450); RBC 5.09 m/uL (4.30-5.90); RDW 13.2 % (11.5-15.5); WBC 8.9 k/uL (3.8-10.6)
[2019-07-22] MEDS: MORPHINE SULFATE 4 MG/ML SYRINGE IV PRN ×3 (00:29→08:59)
[2019-07-22] MEDS: SODIUM CHLORIDE 0.9% 1,000 ML IV SCH ×2 (00:30→06:22)
[2019-07-22 00:33] LABS: Glucose,Whole Blood 101 mg/dL (75-99)
[2019-07-22] MEDS: PANTOPRAZOLE 40 MG/10 ML VIAL IV SCH (08:44)
[2019-07-22 08:49] LABS: Basophils # (A) 0.1 k/uL (0-0.2); Basophils % (A) 1 %; Eosinophils # (A) 0.2 k/uL (0-0.7); Eosinophils % (A) 3 %; HCT 47.9 % (39.0-53.0); HGB 15.7 gm/dL (13.0-17.5); Lymphocytes # (A) 3.2 k/uL (1.0-4.8); Lymphocytes % (A) 44 %; MCH 30.3 pg (25.0-35.0); MCHC 32.8 g/dL (31.0-37.0); MCV 92.1 fL (80.0-100.0); Mean Platelet Volume 7.6; Monocytes # (A) 0.3 k/uL (0-1.0); Monocytes % (A) 4 %; Neutrophils # (A) 3.4 k/uL (1.3-7.7); Neutrophils % (A) 46 %; Platelet Count 242 k/uL (150-450); RDW 13.1 % (11.5-15.5); WBC 7.3 k/uL (3.8-10.6)
[2019-07-22] MEDS ORDERED: ALBUTEROL NEBULIZED 2.5 MG/3 ML INHALATION PRN (14:49)
[2019-07-22] MEDS ORDERED: NITROGLYCERIN SL TABS 0.4 MG TAB SUBLINGUAL PRN (14:49)
[2019-07-22] MEDS ORDERED: ACETAMINOPHEN TAB 325 MG TAB PO PRN (14:51)
[2019-07-22] MEDS: HYDROcodone/APAP 10-325MG 1 EACH TAB PO PRN (16:27)
[2019-07-22] MEDS: ALLOPURINOL 300 MG TAB PO SCH (16:28)
[2019-07-22] MEDS: CITALOPRAM HYDROBROMIDE 10 MG TAB PO SCH (16:28)
[2019-07-22] MEDS: ATORVASTATIN 20 MG TAB PO SCH (16:28)
[2019-07-22] MEDS: LORATADINE 10 MG TAB PO SCH (16:28)
[2019-07-22] MEDS ORDERED: PEG 3350-NA SULF,BICARB,CL/KCL 4,000 ML BOTTLE PO ONE (17:00)
--- NOTE | 2019-07-22 17:50 | P.HPIM ---
History of Present Illness 54-year-old male is admitted for rectal bleeding patient's history he had 3 episodes of bright red blood per rectum yesterday and 1 today. Patient's hemoglobin also remained stable patient is going for coloscopy tomorrow. Patient denied any significant nausea vomiting hematemesis. Patient denied any significant abdominal pain but does have severe abdominal cramping sensation in the lower abdomen patient had diverticulitis recently, the abdomen did not show any significant abnormality. Review of Systems REVIEW OF SYSTEMS: CONSTITUTIONAL: No fever, no malaise, no fatigue. HEENT: No recent visual problems or hearing problems. Denied any sore throat. CARDIOVASCULAR: No chest pain, orthopnea, PND, no palpitations, no syncope. PULMONARY: No shortness of breath, no cough, no hemoptysis. GASTROINTESTINAL: As mentioned in HPI NEUROLOGICAL: No headaches, no weakness, no numbness. HEMATOLOGICAL: Denies any bleeding or petechiae. GENITOURINARY: Denies any burning micturition, frequency, or urgency. MUSCULOSKELETAL/RHEUMATOLOGICAL: Denies any joint pain, swelling, or any muscle pain. ENDOCRINE: Denies any polyuria or polydipsia. The rest of the 14-point review of systems is negative. Past Medical History Past Medical History: Asthma, Chest Pain / Angina, Dementia, GERD/Reflux, GI Bleed, Hypertension, Memory Impairment, Seizure Disorder Additional Past Medical History / Comment(s): Nonepileptic seizures with last one being 12/17/18, small hiatal hernia, chronic low back pain, migraines, lower and upper GI bleeds, hemorrhoids, JILLIAN with Cpap History of Any Multi-Drug Resistant Organisms: None Reported Past Surgical History: No Surgical Hx Reported Additional Past Surgical History / Comment(s): EGD, colonoscopy, bilateral myringotomies/tubes, vasectomy Past Anesthesia/Blood Transfusion Reactions: No Reported Reaction, Motion Sickness Additional Past Anesthesia/Blood Transfusion Reaction / Comment(s): Pt has clausterphobia Past Psychological History: Anxiety Additional Psychological History / Comment(s): Pt resides with his Wei aguila, who is his caregiver. Pt uses a cane or walker to ambulate. He no longer drives, mingo takes him to appts. He has dementia/memory issues. Smoking Status: Light tobacco smoker Past Alcohol Use History: Occasional Additional Past Alcohol Use History / Comment(s): Pt states he rarely will smoke a cigar. Past Drug Use History: None Reported - Past Family History Mother Family Medical History: CVA/TIA, Myocardial Infarction ([place]) Additional Family Medical History / Comment(s): Mother is . Father Family Medical History: Coronary Artery Disease (CAD) Additional Family Medical History / Comment(s): Father is living. He has a pacemaker and has had CABG Medications and Allergies Home Medications Medication Instructions Recorded Confirmed Type Hydrocodone/Acetaminophen [[place] 1 tab PO TID 12/29/13 07/21/19 History 10-325] Donepezil [Aricept] 20 mg PO HS 12/10/15 07/21/19 History Famotidine 20 mg PO BID 12/10/15 07/21/19 History Allopurinol [Zyloprim] 300 mg PO DAILY@1500 09/26/18 07/21/19 History Citalopram Hydrobromide [CeleXA] 10 mg PO DAILY@1500 09/26/18 07/21/19 History Memantine [Namenda] 10 mg PO BID 09/26/18 07/21/19 History clonazePAM [KlonoPIN] 1 mg PO TID 09/26/18 07/21/19 History Albuterol Inhaler [Ventolin Hfa 2 puff INHALATION RT-Q4H PRN 07/01/19 07/21/19 H istory Inhaler] Levocetirizine Dihydrochloride 5 mg PO DAILY@1500 07/01/19 07/21/19 History [Xyzal] Losartan [Cozaar] 25 mg PO BID tab 07/04/19 07/21/19 Rx Nitroglycerin Sl Tabs [Nitrostat] 0.4 mg SUBLINGUAL Q5M PRN tab 07/04/19 07/21/19 Rx amLODIPine [Norvasc] 5 mg PO BID #60 tab 07/04/19 07/21/19 Rx Aspirin 81 mg PO DAILY@1500 07/21/19 07/21/19 History Atorvastatin [Lipitor] 20 mg PO DAILY@1500 07/21/19 07/21/19 History Allergies Allergy/AdvReac Type Severity Reaction Status Date / Time venom-honey bee Allergy Anaphylaxis Verified 07/21/19 19:21 [bee venom (honey bee)] Physical Exam Vitals: Vital Signs Temp Pulse Resp BP Pulse Ox 07/22/19 15:17 16 07/22/19 13:10 97.9 F 65 16 122/76 97 07/22/19 07:00 97.6 F 64 16 151/84 97 07/21/19 19:50 97.4 F L 66 16 150/88 98 Intake and Output 07/22/19 07/22/19 07/22/19 06:59 14:59 22:59 Intake Total 375 360 Output Total 3 1 Balance 372 359 Intake: Intake, IV Titration 375 Amount Sodium Chloride 0.9% 1, 375 000 ml @ 75 mls/hr IV . [id number] KAY Rx#:[id number] Oral 360 Output: Stool 3 1 Other: # Voids 2 3 PHYSICAL EXAMINATION: GENERAL: The patient is alert and oriented x3, not in any acute distress. Well developed, well nourished. HEENT: Pupils are round and equally reacting to light. EOMI. No scleral icterus. No conjunctival pallor. Normocephalic, atraumatic. No pharyngeal erythema. No thyromegaly. CARDIOVASCULAR: S1 and S2 present. No murmurs, rubs, or gallops. PULMONARY: Chest is clear to auscultation, no wheezing or crackles. ABDOMEN: Soft, nontender, nondistended, normoactive bowel sounds. No palpable organomegaly. MUSCULOSKELETAL: No joint swelling or deformity. EXTREMITIES: No cyanosis, clubbing, or pedal edema. NEUROLOGICAL: Gross neurological examination did not reveal any focal deficits. SKIN: No rashes. Results CBC & Chem 7: 07/22/19 07:59 07/21/19 15:26 Labs: Abnormal Lab Results - Last 24 Hours (Table) 07/22/19 Range/Units 00:31 POC Glucose (mg/dL) 101 H (75-99) mg/dL Thrombosis Risk Factor Assmnt - Choose All That Apply Any of the Below Risk Factors Present?: No Other Risk Factors: No Other congenital or acquired thrombophilia - If yes, enter type in comment: No Thrombosis Risk Factor Assessment Level: Very Low Risk Assessment and Plan Plan: -Lower GI bleed: Etiology is not clear probably diverticulosis considering his history of diverticulitis in the recent past. Patient will undergo coloscopy tomorrow patient GI bleed appears to have resolved as he had only 1 bowel movement was shows bloody -Asthma without any acute exacerbation -coronary artery disease -seizure disorder -Hypertension -Memory impairment probably early onset Alzheimer's dementia
--- NOTE | 2019-07-22 20:32 | CONS ---
CONSULTATION DATE OF DICTATION: 07/22/2019 REASON FOR CONSULTATION: Lower abdominal pain and rectal bleeding. HISTORY OF PRESENT ILLNESS: The patient is a 54-year-old pleasant white male who came to the emergency room because of rectal bleeding on and off for the last 3-4 days' duration. The patient has been having these episodes intermittently; he had them a few times in May that subsequently subsided. He was evaluated by Dr. Ivory and was advised to have an outpatient colonoscopy, but the patient did not follow up in the office. For the last 3- 4 days he has been having rectal bleeding almost on a daily basis. He has had about 3- 4 bowel movements, all of which had blood and sometimes clots. He has some rectal discomfort with burning sensation. He also has been having cramping lower abdominal pain. No nausea, vomiting. No fever, chills, night sweats. He has a remote history of colonoscopy about 20 years ago. PAST MEDICAL HISTORY: Past medical history is significant for: 1. Hypertension. 2. Gastroesophageal reflux disease. 3. Memory impairment. 4. History of seizure disorder. 5. Migraines. PAST SURGICAL HISTORY: 1. Colonoscopy several years ago. 2. Bilateral myringotomy. 3. Vasectomy. SOCIAL HISTORY: Former smoker. No alcohol use. FAMILY HISTORY: Mother with coronary artery disease and [place]. Father with coronary artery disease and CABG. MEDICATIONS: Medications at home include: 1. [place]. 2. Aricept. 3. Famotidine. 4. Zyloprim. 5. Celexa. 6. Namenda. 7. Klonopin. 8. Ventolin. 9. Xyzal. ALLERGIES: NONE. REVIEW OF SYSTEMS: CARDIOPULMONARY: No chest pain or shortness of breath. GENITOURINARY: No dysuria or hematuria. MUSCULOSKELETAL: Unremarkable. SKIN: Unremarkable. ENDOCRINE: Unremarkable. PSYCHIATRIC: Unremarkable. NEUROLOGY: Mild dementia. ENT/VISION: Unremarkable. CONSTITUTIONAL: No recent weight loss. No fever, chills, night sweats. PHYSICAL EXAMINATION: He appears comfortable. No apparent distress. VITAL SIGNS: Stable. Blood pressure is 122/76, pulse rate 65, temperature 97.9. HEENT examination unremarkable. Conjunctivae pink. Sclerae anicteric. Oral cavity no lesions. NECK: No JVD or lymph node enlargement. CHEST: Clear to auscultation. HEART: Regular rate and rhythm. ABDOMEN: Soft. There was mild tenderness in the left lower quadrant area as well as in the suprapubic area. EXTREMITIES: No pedal edema. SKIN: No rashes. NEUROLOGIC: Alert and oriented x3. No focal deficits. IMAGING: CT of the abdomen done yesterday was unremarkable. LABS: Labs done today show WBC 7.3, hemoglobin 15.7, platelets normal. Basic metabolic panel is within normal limits. Stool for occult blood is positive. IMPRESSION: Rectal bleeding associated with rectal pain and lower abdominal cramping for the last 3 days' duration. Patient has been having intermittent episodes of rectal bleeding on and off for the last 2 months. Hemoglobin stable at 15 g/dL. Rule out possibility of colitis with colorectal neoplasia, but possibility of bleeding from internal hemorrhoid also needs to be considered. RECOMMENDATIONS: 1. Clear liquid diet. 2. Will proceed with colonoscopy tomorrow to investigate this further. Risks, benefits and complications were discussed with the patient, and he is agreeable to it. Thank you for this consultation. MMODL / IJN: [id number] /
[2019-07-22] MEDS: FAMOTIDINE 20 MG TAB PO SCH (20:52)
[2019-07-22 23:20] VITALS: RESP 18
[2019-07-23] MEDS: HYDROcodone/APAP 10-325MG 1 EACH TAB PO PRN ×3 (05:06→22:48)
[2019-07-23] MEDS: SODIUM CHLORIDE 0.9% 1,000 ML IV SCH ×3 (05:09→23:02)
[2019-07-23 09:01] LABS: HCT 47.2 % (39.0-53.0); HGB 15.4 gm/dL (13.0-17.5); MCHC 32.7 g/dL (31.0-37.0); MCV 91.8 fL (80.0-100.0); Mean Platelet Volume 7.7; Platelet Count 239 k/uL (150-450); RBC 5.14 m/uL (4.30-5.90); RDW 13.2 % (11.5-15.5)
[2019-07-23] MEDS: FAMOTIDINE 20 MG TAB PO SCH (09:01)
[2019-07-23] MEDS: PANTOPRAZOLE 40 MG/10 ML VIAL IV SCH (09:08)
[2019-07-23 09:13] LABS: African American GFR (CKD) >90 (>60 ml/min/1.73 sqM); Anion Gap 9 mmol/L; Blood Urea Nitrogen 9 mg/dL (9-20); Calcium 9.9 mg/dL (8.4-10.2); Carbon Dioxide 31 mmol/L (22-30); Chloride 103 mmol/L (98-107); Glucose 92 mg/dL (74-99); Non-African American GFR(CKD) >90 (>60 ml/min/1.73 sqM); Potassium 4.7 mmol/L (3.5-5.1); Sodium 143 mmol/L (137-145)
[2019-07-23] MEDS ORDERED: PROPOFOL 10 MG/ML 20 ML VIAL IV ONE (13:28)
[2019-07-23] MEDS ORDERED: IV FLUID CONTINUATION 1,000 ML IV ONE (13:29)
--- NOTE | 2019-07-23 14:06 | P.PCN ---
Date of Procedure: 07/23/19 Description of Procedure: BRIEF HISTORY: Patient is a 54-year-old male who presents for complaints of bright red blood per rectum to the hospital. Hemoglobin has remained stable. He has had this issue chronically and was told to follow-up in the outpatient setting but the patient failed to do so and presented back with complaints of painless bright red blood per rectum. She does have a history of renal colonoscopy in the past which she believes was normal. PROCEDURE PERFORMED: Colonoscopy with polypectomy. PREOPERATIVE DIAGNOSIS: Hematochezia, bright red blood per rectum. ESTIMATED BLOOD LOSS: Minimal. IV sedation per Anesthesia. PROCEDURE: After informed consent was obtained, the patient, was brought into the endoscopy unit. IV sedation was administered by Anesthesia under continuous monitoring. Digital rectal examination was normal. Initially the Olympus CF-190 flexible video colonoscope was then inserted in the rectum, gradually advanced into the cecum without any difficulty. Careful examination was performed as the scope was gradually being withdrawn. Ileocecal valve and the appendiceal orifice were visualized and appeared normal. Prep was excellent. Mucosa of the cecum, ascending colon, transverse colon, descending colon, sigmoid colon, and rectum appeared normal. Diminutive 2 mm rectal polyp removed with cold forcep polypectomy. Retroflexion was performed in the rectum and no lesions were seen, moderate nonbleeding internal hemorrhoids noted. The patient tolerated the procedure well. IMPRESSION: Normal-appearing colon from rectum to cecum. Diminutive 2 mm rectal polyp removed with cold forceps. Moderate internal hemorrhoids. RECOMMENDATIONS: Findings of this examination were discussed with the patient. Okay to resume diet. Await pathology from polypectomy. Anticipate repeat colonoscopy in 5 years for colon polyps. If further bleeding patient should've follow-up instructions previously given to him with local hemorrhoidal care including sitz baths, stool softeners and topical steroids. Okay for discharge from gastroenterology standpoint.
[2019-07-23] MEDS: ALLOPURINOL 300 MG TAB PO SCH (14:35)
[2019-07-23] MEDS: CITALOPRAM HYDROBROMIDE 10 MG TAB PO SCH (14:35)
[2019-07-23] MEDS: LORATADINE 10 MG TAB PO SCH (14:35)
[2019-07-23] MEDS: ATORVASTATIN 20 MG TAB PO SCH (14:35)
--- NOTE | 2019-07-23 19:32 | PN ---
PROGRESS NOTE DATE OF SERVICE: 07/23/2019 This 54-year-old gentleman admitted with rectal bleeding is being closely monitored at this time. Dr. Ivory performed a colonoscopy which showed diminutive 2 mm rectal polyp and moderate internal hemorrhoids. The hemoglobin is 15.4 at this time. No chest pain. No palpitations. No fever. EXAM: Alert and oriented x3. Pulse 76, blood pressure 130/70, respiration 18, temperature 97.9, pulse ox 98% on room air. HEENT: Conjunctivae normal. Oral mucosa moist. NECK: No jugular venous distention. No lymph node enlargement. CARDIOVASCULAR: S1, S2. RESPIRATORY: Diminished breath sounds at the bases. No rhonchi, no crackles. ABDOMEN: Soft, nontender. LEGS: No swelling. NERVOUS SYSTEM: No focal deficits. LAB STUDIES: Hemoglobin 15.4. Other labs are noted. ASSESSMENT: 1. Acute lower gastrointestinal bleeding with possible internal hemorrhoids. 2. Asthma. 3. Coronary artery disease. 4. Seizure disorder. 5. Hypertension. 6. Memory impairment. 7. History of gastroesophageal reflux disease. 8. History of hypertension. 9. History of nonepileptic seizures. 10.History of anxiety. 11.History of nicotine dependence. RECOMMENDATIONS AND DISCUSSION: In this 54-year-old gentleman who presented with multiple medical issues, we will monitor the patient closely, continue the current management and symptomatic treatment. I recommend repeat labs tomorrow, advance diet, increase ambulation. If the patient is stable, patient could be discharged in the next 24 hours. Further recommendations to follow. MMODL / IJN: [id number] /
[2019-07-23] MEDS: MEMANTINE 10 MG TAB PO SCH (20:05)
[2019-07-23] MEDS: LOSARTAN 25 MG TAB PO SCH (20:05)
[2019-07-23] MEDS: clonazePAM 1 MG TAB PO SCH (20:05)
[2019-07-23] MEDS: amLODIPine 5 MG TAB PO SCH (20:05)
[2019-07-23] MEDS: HYDROCORTISONE SUPPOSITORY 25 MG SUPP RECTAL SCH (20:14)
[2019-07-23] MEDS ORDERED: DONEPEZIL 10 MG TAB PO SCH (21:00)
[2019-07-24 05:46] VITALS: BP 124/84; PULSE 71; TEMP 97.4
[2019-07-24] MEDS: LOSARTAN 25 MG TAB PO SCH (08:23)
[2019-07-24] MEDS: amLODIPine 5 MG TAB PO SCH (08:24)
[2019-07-24] MEDS: clonazePAM 1 MG TAB PO SCH (08:24)
[2019-07-24] MEDS: HYDROcodone/APAP 10-325MG 1 EACH TAB PO PRN (08:24)
[2019-07-24] MEDS: CITALOPRAM HYDROBROMIDE 10 MG TAB PO SCH (08:24)
[2019-07-24] MEDS: ATORVASTATIN 20 MG TAB PO SCH (08:24)
[2019-07-24] MEDS: PANTOPRAZOLE 40 MG/10 ML VIAL IV SCH (08:25)
[2019-07-24] MEDS: MEMANTINE 10 MG TAB PO SCH (08:25)
[2019-07-24 09:43] LABS: Basophils % (A) 0 %; Eosinophils # (A) 0.2 k/uL (0-0.7); Eosinophils % (A) 4 %; HCT 44.6 % (39.0-53.0); HGB 15.3 gm/dL (13.0-17.5); Lymphocytes # (A) 2.2 k/uL (1.0-4.8); Lymphocytes % (A) 37 %; MCHC 34.3 g/dL (31.0-37.0); MCV 90.3 fL (80.0-100.0); Mean Platelet Volume 7.2; Monocytes # (A) 0.3 k/uL (0-1.0); Monocytes % (A) 5 %; Neutrophils # (A) 3.1 k/uL (1.3-7.7); Neutrophils % (A) 52 %; Platelet Count 248 k/uL (150-450); RBC 4.94 m/uL (4.30-5.90); RDW 12.9 % (11.5-15.5); WBC 5.9 k/uL (3.8-10.6)
[2019-07-24 09:51] LABS: African American GFR (CKD) >90 (>60 ml/min/1.73 sqM); Anion Gap 9 mmol/L; Blood Urea Nitrogen 8 mg/dL (9-20); Calcium 9.7 mg/dL (8.4-10.2); Carbon Dioxide 29 mmol/L (22-30); Chloride 102 mmol/L (98-107); Glucose 115 mg/dL (74-99); Non-African American GFR(CKD) >90 (>60 ml/min/1.73 sqM); Potassium 4.1 mmol/L (3.5-5.1); Sodium 140 mmol/L (137-145)
[2019-07-24] MEDS: HYDROCORTISONE SUPPOSITORY 25 MG SUPP RECTAL SCH (11:28)
[2019-07-24] MEDS: SODIUM CHLORIDE 0.9% 1,000 ML IV SCH (11:30)
[2019-07-24] MEDS ORDERED: ASPIRIN 81 MG PO SCH (15:00)
--- NOTE | 2019-07-25 07:18 | DS ---
DISCHARGE SUMMARY DATE OF SERVICE: 07/24/2019 FINAL DIAGNOSES: 1. Acute lower gastrointestinal bleeding with possible internal hemorrhoids. 2. Status post colonoscopy. 3. History of asthma. 4. History of coronary artery disease. 5. Seizure disorder. 6. Hypertension. 7. History of memory impairment. 8. History of gastroesophageal reflux disease. 9. History of hypertension. 10.History of nonepileptic seizures. 11.History of anxiety. 12.Remote history of nicotine dependence. DISCHARGE DISPOSITION: The patient will be discharged in stable condition with guarded prognosis. HISTORY OF PRESENT ILLNESS: This 54-year-old gentleman with a past medical history of multiple medical problems was admitted with acute lower GI bleed. Hemoglobin was rather stable. Colonoscopy showed internal hemorrhoids and diminutive polyp. Dr. Ivory saw the patient and recommended outpatient followup. On exam, vitals are stable. CARDIOVASCULAR: S1, S2 muffled. ABDOMEN: Soft. NERVOUS SYSTEM: No focal deficits. The patient underwent a polypectomy with Dr. Ivory to be followed up with Dr. Ivory's office for further evaluation and treatment. The patient also recommended follow up with the patient's primary physician, Dr. Jerad Lucero, in the outpatient also. DISCHARGE ADVICE AND MEDICATIONS: 1. Diet is cardiac. 2. Activity limited until followup. 3. Follow up with Dr. Jerad Lucero in 1 to 2 days. 4. Follow up with Dr. Ivory in 1 week. Medications are: 1. Aricept 20 mg at bedtime. 2. Celexa 10 mg p.o. daily. 3. Pepcid 20 mg p.o. b.i.d. 4. Klonopin 1 mg p.o. t.i.d. 5. Lipitor 20 mg p.o. daily. 6. Namenda 10 mg p.o. b.i.d. 7. Hydrocodone 1 tablet p.o. t.i.d. 8. Albuterol p.r.n. 9. Levocetirizine 5 mg p.o. daily. 10.Zyloprim 300 mg p.o. daily. 11.Hydrocortisone suppository 25 mg b.i.d. 12.Aspirin 81 mg p.o. daily. 13.Cozaar 25 mg p.o. b.i.d. 14.Nitrostat 0.4 sublingual p.r.n. 15.Norvasc 5 mg p.o. b.i.d. Once again the patient will be discharged in stable condition with guarded prognosis. MMFINAL / DAYTONN: [id number] /
== END 2019-07-24 12:35 | disposition home or self-care (01) ==
LOC: EC 14:01 → 6NMEDSUR 17:02
PROVIDERS: ADMIT Internal Medicine; ATTEND Internal Medicine
DX: K62.1 Rectal polyp (principal); K64.8 Other hemorrhoids; K57.91 Diverticulosis of intestine, part unspecified, without perforation or abscess with bleeding; I10 Essential (primary) hypertension; I25.10 Atherosclerotic heart disease of native coronary artery without angina pectoris; J45.909 Unspecified asthma, uncomplicated; G40.909 Epilepsy, unspecified, not intractable, without status epilepticus; K21.9 Gastro-esophageal reflux disease without esophagitis; G43.909 Migraine, unspecified, not intractable, without status migrainosus; F41.9 Anxiety disorder, unspecified; F40.240 Claustrophobia; R41.3 Other amnesia; G47.33 Obstructive sleep apnea (adult) (pediatric); Z99.89 Dependence on other enabling machines and devices; M54.5 Low back pain; G89.29 Other chronic pain; M10.9 Gout, unspecified; Z91.19 Patient's noncompliance with other medical treatment and regimen; F17.290 Nicotine dependence, other tobacco product, uncomplicated; Z87.19 Personal history of other diseases of the digestive system; Z79.899 Other long term (current) drug therapy; Z79.891 Long term (current) use of opiate analgesic; Z79.82 Long term (current) use of aspirin; Z82.49 Family history of ischemic heart disease and other diseases of the circulatory system; Z91.030 Bee allergy status
CPT/HCPCS: 36415; 45380; 74177; 80048; 80053; 82272; 85025; 85027; 85610; 85730; 88305; 94640; 96361; 96374; 96375; 96376; 99285

== ENCOUNTER → 2019-08-04 | Outpatient (CLI) | payer MEDICARE ==
--- NOTE | 2019-08-04 14:15 | CT ---
EXAMINATION TYPE: CT angio head neck DATE OF EXAM: 08/04/2019 HISTORY: dizzy COMPARISON: Prior CTA had a neck December 22, 2018 CT DLP: 1351.7 mGycm. Automated Exposure Control for Dose Reduction was Utilized. TECHNIQUE: CTA scan of the head and neck are performed without and with IV Contrast, patient injecte d with 65 mL of Isovue 370, axial images are obtained, coronal and sagittal reformatted images are re viewed. Three-D reconstructed images are created on an independent workstation and reviewed. Initial noncontrast head CT is performed. FINDINGS: Carotid/Vascular Structures: There is normal three-vessel origin from the arch. Right common carotid artery shows normal origin from right brachiocephalic artery. There is no significant focal stenosis or aneurysmal change in the common or internal carotid arteries bilaterally including a level carotid bulbs. There are patent external carotid arteries without significant stenosis. No significant plaqu e at carotid bulb level bilaterally. There is hypoplastic or occluded distal right vertebral artery. Basilar artery is formed by dominant left vertebral artery. Patent left posterior communicating artery is present. There is no significant focal stenosis or aneurysmal change in the posterior circulation. There is patent anterior communica ting artery without significant focal stenosis or aneurysmal change. Other: Noncontrast head CT shows no acute intracranial hemorrhage or midline shift. Mild generalized cerebral atrophy. Crawford-white matter differentiation maintained. Globes are intact and visualized sinu ses are clear. No suspicious opacification mastoid air cells. Patchy soft tissue density right computer information systems instructor al auditory canal is thought to reflect cerumen. Moderate multilevel spurring and disc space narrowing throughout the cervical spine most prominent C4 -C5 and C5-C6 level is seen. IMPRESSION: 1. No significant stenosis in common or internal carotid arteries bilaterally. 2. No aneurysmal change at level of [place]. No significant change from prior.
== END | disposition home or self-care (01) ==
LOC: RADCTMAIN 12:40
PROVIDERS: ATTEND Psychiatry & Neurology Neurology
DX: G43.909 Migraine, unspecified, not intractable, without status migrainosus (principal); H53.8 Other visual disturbances; R55 Syncope and collapse; R42 Dizziness and giddiness
CPT/HCPCS: 70496; 70498; Q9967

== ENCOUNTER → 2020-01-11 | Day surgery (SDC) | payer MEDICARE, OTHER ==
[2020-01-10 09:25] VITALS: BMI 28.5
[~2020-01-11] MED LIST: LACTATED RINGERS 1,000 ML IV SCH; LIDOCAINE 1% INJ 10MG/ML (20 ML MDV) ONE; PROPOFOL 10 MG/ML 100 ML VIAL IV ONE
[2020-01-11 08:56] VITALS: RESP 16; TEMP 96.2
--- NOTE | 2020-01-11 09:25 | P.PCN ---
Date of Procedure: 01/11/20 Procedure(s) Performed: BRIEF HISTORY: Patient is a 54-year-old, pleasant, white male scheduled for an upper endoscopy with possible dilation as a part of evaluation of long-standing history of GERD and intermittent dysphagia to solids. He is maintained on Protonix 40 mg daily.. PROCEDURE PERFORMED: Esophagogastroduodenoscopy with biopsy. PREOPERATIVE DIAGNOSIS: Intermittent dysphagia to solids and long-standing history of. IV sedation per anesthesia. PROCEDURE: After informed consent was obtained, the patient was brought into the endoscopy unit. IV sedation was administered by Anesthesia under continuous monitoring. Initially the Olympus GIF-140 video endoscope was inserted into the mouth. Esophagus intubated without any difficulty. It was gradually advanced into the stomach and duodenum and carefully examined. The bulb and the second part of the duodenum appeared normal. The scope at this time was withdrawn to the stomach, adequately insufflated with air, and upon careful examination, mucosa of the antrum had patchy areas of erythema in the prepyloric area which was biopsied. Rest of the body, cardia and the fundus appeared normal. The scope was then withdrawn into the esophagus. The GE junction was located at 39 cm from the incisors. The esophagus appeared normal. There were no erosions or ulcerations seen, no evidence of esophageal stricture. Biopsies were done from the distal esophagus and the patient tolerated the procedure well. IMPRESSION: 1. Normal-appearing esophagus with no evidence of esophagitis or esophageal stricture. 2. Mild antral gastritis. RECOMMENDATIONS: The findings of this examination were discussed with the patient as well as her family. He was advised to follow with the biopsy results. He will continue with Protonix 40 mg daily and continue to follow antireflux measures..
[2020-01-11 09:46] VITALS: BP 110/66; PULSE 60
== END ==
LOC: ORWHC2ENDO 08:40
PROVIDERS: ATTEND Internal Medicine Gastroenterology
DX: K29.70 Gastritis, unspecified, without bleeding (principal); R13.10 Dysphagia, unspecified; K21.9 Gastro-esophageal reflux disease without esophagitis; I10 Essential (primary) hypertension; E78.5 Hyperlipidemia, unspecified; Z86.718 Personal history of other venous thrombosis and embolism; J45.909 Unspecified asthma, uncomplicated; M10.9 Gout, unspecified; R56.9 Unspecified convulsions; F03.90 Unspecified dementia, unspecified severity, without behavioral disturbance, psychotic disturbance, mood disturbance, and anxiety; Z79.82 Long term (current) use of aspirin; Z79.899 Other long term (current) drug therapy; Z91.030 Bee allergy status
CPT/HCPCS: 88305; 43239; J2001; J2704

== ENCOUNTER → 2021-04-23 | Outpatient (CLI) | payer MEDICARE | END | disposition home or self-care (01) | LOC: LABWHC1 11:46 | PROVIDERS: ATTEND Psychiatry & Neurology Neurology | DX: Z20.822 Contact with and (suspected) exposure to COVID-19 (principal) | CPT/HCPCS: U0003; C9803; U0005 ==

== ENCOUNTER → 2021-10-09 | Outpatient (CLI) | payer MEDICARE ==
--- NOTE | 2021-10-09 12:25 | XR ---
EXAMINATION TYPE: XR chest 2V DATE OF EXAM: 10/09/2021 COMPARISON: Chest x-ray 07/01/2019 HISTORY: COPD, shortness of breath TECHNIQUE: Frontal and lateral views of the chest are obtained. FINDINGS: There is no focal air space opacity, pleural effusion, or pneumothorax seen. The cardiac silhouette size is within normal limits. There is a lead centered near the midthoracic spine level. The osseous structures are intact. IMPRESSION: No acute cardiopulmonary process.
== END | disposition home or self-care (01) ==
LOC: RADXRMAIN 10:56
PROVIDERS: ATTEND Family Medicine
DX: J44.9 Chronic obstructive pulmonary disease, unspecified (principal)
CPT/HCPCS: 71046

== ENCOUNTER → 2021-12-17 | Outpatient (CLI) | payer MEDICARE, OTHER | END | disposition home or self-care (01) | LOC: LABWHC1 11:59 | PROVIDERS: ATTEND Family Medicine | DX: Z20.822 Contact with and (suspected) exposure to COVID-19 (principal); J06.9 Acute upper respiratory infection, unspecified | CPT/HCPCS: 87502; U0003; C9803; U0005 ==

== ENCOUNTER 2022-06-30 11:52 | Emergency (ER) | payer MEDICARE, OTHER ==
--- NOTE | 2022-06-30 12:38 | XR ---
EXAMINATION TYPE: XR chest 2V DATE OF EXAM: 06/30/2022 12:30 PM COMPARISON: Chest radiographs from 10/09/2021. TECHNIQUE: XR chest 2V Frontal and lateral views of the chest. CLINICAL INDICATION:Male, 57 years old with history of difficulty breathing; FINDINGS: Lungs/Pleura: There is no evidence of pleural effusion, focal consolidation, or pneumothorax. Pulmonary vascularity: Unremarkable. Heart/mediastinum: Cardiomediastinal silhouette is unremarkable. Musculoskeletal: No acute osseous pathology. There are stimulator device projects over the thoracic s pine posteriorly. IMPRESSION: No acute cardiopulmonary disease/process.
[2022-06-30 13:22] LABS: Basophils # (A) 0.1 k/uL (0-0.2); Basophils % (A) 1 %; Eosinophils # (A) 0.8 k/uL (0-0.7); Eosinophils % (A) 8 %; HCT 48.6 % (39.0-53.0); HGB 16.1 gm/dL (13.0-17.5); Lymphocytes # (A) 2.7 k/uL (1.0-4.8); Lymphocytes % (A) 28 %; MCH 29.6 pg (25.0-35.0); MCHC 33.1 g/dL (31.0-37.0); MCV 89.4 fL (80.0-100.0); Mean Platelet Volume 8.1; Monocytes # (A) 0.5 k/uL (0-1.0); Monocytes % (A) 5 %; Neutrophils # (A) 5.4 k/uL (1.3-7.7); Neutrophils % (A) 55 %; Platelet Count 217 k/uL (150-450); RBC 5.44 m/uL (4.30-5.90); RDW 13.4 % (11.5-15.5); WBC 9.7 k/uL (3.8-10.6)
[2022-06-30 13:30] LABS: ALT 42 U/L (4-49); AST 45 U/L (17-59); African American GFR (CKD) >90 (>60 ml/min/1.73 sqM); Albumin 4.8 g/dL (3.5-5.0); Alkaline Phosphatase 106 U/L (38-126); Anion Gap 8 mmol/L; Blood Urea Nitrogen 14 mg/dL (9-20); Calcium 9.4 mg/dL (8.4-10.2); Carbon Dioxide 29 mmol/L (22-30); Chloride 103 mmol/L (98-107); Glucose 86 mg/dL (74-99); Non-African American GFR(CKD) >90 (>60 ml/min/1.73 sqM); Potassium 4.2 mmol/L (3.5-5.1); Sodium 140 mmol/L (137-145); Total Bilirubin 0.5 mg/dL (0.2-1.3); Total Protein 7.8 g/dL (6.3-8.2)
--- NOTE | 2022-06-30 15:05 | ED ---
General Adult HPI - General Chief complaint: Shortness of Breath Stated complaint: congestion, SOB Time Seen by Provider: 06/30/22 13:26 Source: patient Mode of arrival: ambulatory Limitations: no limitations - History of Present Illness Initial comments: Dictation was produced using [employer] dictation software. please excuse any grammatical, word or spelling errors. Chief Complaint: 57-year-old male presents emergency department for worsening cough History of Present Illness: Patient is 57-year-old male has multiple comorbidities. He presents emergency department with worsening cough. States that his symptoms began 1-2 weeks ago. Started off with a slight cough fevers however symptoms slightly improved. Over the last several days symptoms got worse and never really gone away completely. He denies a productive cough of y ellow sputum. Complains of mild chest pain with coughing and deep inspiration. The ROS documented in this emergency department record has been reviewed and confirmed by me. Those systems with pertinent positive or negative responses have been documented in the HPI. All other systems are other negative and/or noncontributory. PHYSICAL EXAM: General Impression: Alert and oriented x3, not in acute distress HEENT: Normocephalic atraumatic, extra-ocular movements intact, pupils equal and reactive to light bilaterally, mucous membranes moist. Cardiovascular: Heart regular rate and rhythm Chest: Able to complete full sentences, wheezing to the right lung dash Abdomen: abdomen soft, non-tender, non-distended, no organomegaly Musculoskeletal: Pulses present and equal in all extremities, no peripheral edema Motor: no focal deficits noted Neurological: CN II-XII grossly intact, no focal motor or sensory deficits noted Skin: Intact with no visualized rashes Psych: Normal affect and mood ED course: 57-year-old male presents emergency Department with respiratory infectious symptoms for 2 weeks. Vital signs upon arrival are within acceptable limits. Nursing notes and chart review was performed Laboratory evaluation obtained. CBC, coag panel is unremarkable. Metabolic panel is negative. Negative for influenza or coronavirus per checks x-ray is unremarkable. Patient observed in the emergency department for 4 hours and 20 minutes. Reevaluate at bedside at 4:15 PM found with stable medical condition. Given persistence of patient symptoms he will be prescribed azithromycin pack. He takes medications at home for asthma/COPD. Does not need any refills on inhaler. Give dose of Decadron prior to discharge. My EKG interpretation: Ventricular rate 80, sinus rhythm,. 154, QRS 93, QTC 397. No CT prolongation, no QTC prolongation, no ST or T-wave changes noted. Overall, this EKG is unremarkable Critical Care: no Critical Care time: n/a - Related Data Home Medications Medication Instructions Recorded Confirmed Hydrocodone/Acetaminophen [[place] 1 tab PO TID 12/29/13 06/30/22 10-325] Famotidine 20 mg PO BID 12/10/15 06/30/22 Memantine [Namenda] 10 mg PO BID 09/26/18 06/30/22 allopurinoL [Zyloprim] 300 mg PO DAILY 09/26/18 06/30/22 Albuterol Inhaler [Ventolin Hfa 2 puff INHALATION RT-Q4H PRN 07/01/19 06/30/22 Inhaler] Atorvastatin [Lipitor] 20 mg PO DAILY 07/21/19 06/30/22 Albuterol Nebulized [Ventolin 2.5 mg INHALATION RT-QID 01/10/20 06/30/22 Nebulized] Montelukast [Singulair] 10 mg PO HS 01/10/20 06/30/22 Pantoprazole Sodium [Protonix] 40 mg PO DAILY 01/10/20 06/30/22 amLODIPine [Norvasc] 10 mg PO DAILY 01/10/20 06/30/22 Budesonide [Pulmicort] 0.5 mg INHALATION RT-BID 06/30/22 06/30/22 Mirtazapine 30 mg PO HS 06/30/22 06/30/22 Nitroglycerin Sl Tabs [Nitrostat] 0.4 mg SL Q5M PRN 06/30/22 06/30/22 Pramipexole [Mirapex] 0.5 mg PO HS 06/30/22 06/30/22 Valsartan [Diovan] 160 mg PO BID 06/30/22 06/30/22 Previous Rx's Medication Instructions Recorded Azithromycin [Zithromax Z Pack] 1 tab PO DIRECTED #6 tab 06/30/22 Promethaz-Cod 6.25-10 mg/5 ml 5 ml PO Q6HR PRN 3 Days #60 ml 06/30/22 [Phenergan with Codeine] Allergies Allergy/AdvReac Type Severity Reaction Status Date / Time venom-honey bee Allergy Anaphylaxis Verified 01/11/20 09:02 [bee venom (honey bee)] Review of Systems ROS Statement: Those systems with pertinent positive or pertinent negative responses have been documented in the HPI. ROS Other: All systems not noted in ROS Statement are negative. Past Medical History Past Medical History: Asthma, Chest Pain / Angina, Dementia, Deep Vein Thrombosis (DVT), GERD/Reflux, GI Bleed, Hypertension, Memory Impairment, Seizure Disorder, Sleep Apnea/CPAP/BIPAP Additional Past Medical History / Comment(s): Nonepileptic seizures with last one being 12/17/18, small hiatal hernia, chronic low back pain, migraines, lower and upper GI bleeds, hemorrhoids, JILLIAN with Cpap, superficial blood clot arm now resolved, currently taking antibiotics for mastoiditis History of Any Multi-Drug Resistant Organisms: None Reported Past Surgical History: No Surgical Hx Reported Additional Past Surgical History / Comment(s): EGD, colonoscopy, bilateral myringotomies/tubes, vasectomy Past Anesthesia/Blood Transfusion Reactions: No Reported Reaction, Motion Sickness Additional Past Anesthesia/Blood Transfusion Reaction / Comment(s): Pt has claustrophobia Past Psychological History: Anxiety Past Alcohol Use History: Occasional Past Drug Use History: None Reported - Past Family History Mother Family Medical History: CVA/TIA, Myocardial Infarction (HI) Additional Family Medical History / Comment(s): Mother is . Father Family Medical History: Coronary Artery Disease (CAD), Deep Vein Thrombosis (DVT) Additional Family Medical History / Comment(s): Father is living. He has a pacemaker and has had CABG Brother(s) Family Medical History: Cancer General Exam Limitations: no limitations Course Vital Signs 06/30/22 06/30/22 12:11 15:01 Temperature 97.7 F Pulse Rate 95 91 Respiratory 16 Rate Blood Pressure 142/83 O2 Sat by Pulse 95 98 Oximetry Medical Decision Making - Lab Data Result diagrams: 06/30/22 13:09 06/30/22 13:09 Lab Results 06/30/22 06/30/22 06/30/22 Range/Units 13:09 13:09 13:09 WBC 9.7 (3.8-10.6) k/uL RBC 5.44 (4.30-5.90) m/uL Hgb 16.1 (13.0-17.5) gm/dL Hct 48.6 (39.0-53.0) % MCV 89.4 (80.0-100.0) fL MCH 29.6 (25.0-35.0) pg MCHC 33.1 (31.0-37.0) g/dL RDW 13.4 (11.5-15.5) % Plt Count 217 (150-450) k/uL MPV 8.1 Neutrophils % 55 % Lymphocytes % 28 % Monocytes % 5 % Eosinophils % 8 % Basophils % 1 % Neutrophils # 5.4 (1.3-7.7) k/uL Lymphocytes # 2.7 (1.0-4.8) k/uL Monocytes # 0.5 (0-1.0) k/uL Eosinophils # 0.8 H (0-0.7) k/uL Basophils # 0.1 (0-0.2) k/uL PT (9.0-12.0) sec INR (<1.2) APTT (22.0-30.0) sec Sodium 140 (137-145) mmol/L Potassium 4.2 (3.5-5.1) mmol/L Chloride 103 (98-107) mmol/L Carbon Dioxide 29 (22-30) mmol/L Anion Gap 8 mmol/L BUN 14 (9-20) mg/dL Creatinine 0.93 (0.66-1.25) mg/dL Est GFR (CKD-EPI)AfAm >90 (>60 ml/min/1.73 sqM) Est GFR (CKD-EPI)NonAf >90 (>60 ml/min/1.73 sqM) Glucose 86 (74-99) mg/dL Calcium 9.4 (8.4-10.2) mg/dL Total Bilirubin 0.5 (0.2-1.3) mg/dL AST 45 (17-59) U/L ALT 42 (4-49) U/L Alkaline Phosphatase 106 (38-126) U/L Troponin I <0.012 (0.000-0.034) ng/mL Total Protein 7.8 (6.3-8.2) g/dL Albumin 4.8 (3.5-5.0) g/dL Coronavirus (PCR) (Not Detectd) Influenza Type A RNA (Not Detectd) Influenza Type B (PCR) (Not Detectd) 06/30/22 06/30/22 06/30/22 Range/Units 14:47 14:47 15:17 WBC (3.8-10.6) k/uL RBC (4.30-5.90) m/uL Hgb (13.0-17.5) gm/dL Hct (39.0-53.0) % MCV (80.0-100.0) fL MCH (25.0-35.0) pg MCHC (31.0-37.0) g/dL RDW (11.5-15.5) % Plt Count (150-450) k/uL MPV Neutrophils % % Lymphocytes % % Monocytes % % Eosinophils % % Basophils % % Neutrophils # (1.3-7.7) k/uL Lymphocytes # (1.0-4.8) k/uL Monocytes # (0-1.0) k/uL Eosinophils # (0-0.7) k/uL Basophils # (0-0.2) k/uL PT 10.0 (9.0-12.0) sec INR 0.9 (<1.2) APTT 23.7 (22.0-30.0) sec Sodium (137-145) mmol/L Potassium (3.5-5.1) mmol/L Chloride (98-107) mmol/L Carbon Dioxide (22-30) mmol/L Anion Gap mmol/L BUN (9-20) mg/dL Creatinine (0.66-1.25) mg/dL Est GFR (CKD-EPI)AfAm (>60 ml/min/1.73 sqM) Est GFR (CKD-EPI)NonAf (>60 ml/min/1.73 sqM) Glucose (74-99) mg/dL Calcium (8.4-10.2) mg/dL Total Bilirubin (0.2-1.3) mg/dL AST (17-59) U/L ALT (4-49) U/L Alkaline Phosphatase (38-126) U/L Troponin I (0.000-0.034) ng/mL Total Protein (6.3-8.2) g/dL Albumin (3.5-5.0) g/dL Coronavirus (PCR) Not Detected (Not Detectd) Influenza Type A RNA Not Detected (Not Detectd) Influenza Type B (PCR) Not Detected (Not Detectd) Disposition Clinical Impression: Acute bronchitis Disposition: HOME SELF-CARE Condition: Good Instructions (If sedation given, give patient instructions): Acute Bronchitis (ED) Prescriptions: Promethaz-Cod 6.25-10 mg/5 ml [Phenergan with Codeine] 5 ml PO Q6HR PRN 3 Days #60 ml PRN Reason: Cough Azithromycin [Zithromax Z Pack] 1 tab PO DIRECTED #6 tab Is patient prescribed a controlled substance at d/c from ED?: Yes If prescribed controlled substance>3 days was MAPS reviewed?: Prescribed <3 Days Referrals: Jerad Lucero MD [Primary Care Provider] - 1-2 days Time of Disposition: 16:22
[2022-06-30 15:46] LABS: INR 0.9 (<1.2); Partial Thromboplastin Time 23.7 sec (22.0-30.0)
[2022-06-30] MEDS ORDERED: DEXAMETHASONE SOD PHOSPHATE 10 MG/ML 1 ML VIAL IV STA (16:22)
[2022-06-30 17:27] VITALS: BP 128/78; PULSE 78; RESP 20; TEMP 98.6
== END 2022-06-30 17:00 | disposition home or self-care (01) ==
LOC: EC 11:52
DX: J20.9 Acute bronchitis, unspecified (principal); I10 Essential (primary) hypertension; J45.909 Unspecified asthma, uncomplicated; F41.9 Anxiety disorder, unspecified; K21.9 Gastro-esophageal reflux disease without esophagitis; F03.94 Unspecified dementia, unspecified severity, with anxiety; Z20.822 Contact with and (suspected) exposure to COVID-19; Z72.89 Other problems related to lifestyle; Z91.030 Bee allergy status; Z79.51 Long term (current) use of inhaled steroids; Z79.899 Other long term (current) drug therapy
CPT/HCPCS: 36415; 71046; 80053; 84484; 85025; 85610; 85730; 87502; 87635; 93005; 99285